=== PATIENT | female | born 1965 | race Two or more races ===

== ENCOUNTER 2017-05-06 08:14 | Inpatient (IN) | payer OTHER ==
[2017-05-06 08:21] VITALS: BMI 30.7
[2017-05-06] MEDS ORDERED: SODIUM CHLORIDE 0.9% 1000 ML INFUS.BAG IV ONE ×2 (09:11→13:28)
[2017-05-06] MEDS ORDERED: PANTOPRAZOLE SODIUM 40 MG in SODIUM CHLORIDE 100 ML IVPB ONE (09:11)
--- NOTE | 2017-05-06 09:35 | PDOC ---
History of Present Illness - General History Source: Patient Exam Limitations: No Limitations - History of Present Illness Initial Comments: 05/06/17 09:35 The patient is a 51 year old female, with a significant past medical history of hypertension, hyperlipidemia, diabetes, HIV(on antiretrovirals), asthma, anemia , and fibromyalgia, who presents to the emergency department complaining of diffuse abdominal pain for approximately 4 days. The patient reports associated episodes of diarrhea, with possible dark blood in her stool. Patient reports her diarrheal episodes occur approximately every 15 minutes. Patient admits taking Pepto Bismol for abdominal pain and diarrhea, but her bloody stool episodes began before then. Patient states she does not know of the blood in the stool is from the red jello she ate on Thursday. Patient reports associated back pain, subjective fever, and chills, but denies any headache, lightheadedness, or dizziness. She reports nausea, but denies vomiting or constipation. Patient denies any dysuria, hematuria, frequency, or urgency. She denies any recent travel or sick contacts Allergies: None reported Past Surgical History: None reported Social History: Non smoker. No ETOH or recreational drug use. PCP: Jo Jordan <Rosalio Smith - Last Filed: 05/06/17 16:46> - General History Source: Patient Exam Limitations: No Limitations <Cynthia Wilson - Last Filed: 05/06/17 17:53> - General Chief Complaint: Pain Stated Complaint: Diarrhea/ABD PAIN Past History <Rosalio Smith - Last Filed: 05/06/17 16:46> - Past Medical History Anemia: Yes Asthma: Yes Cancer: No Cardiac Disorders: No CVA: No COPD: No CHF: No Dementia: No Diabetes: Yes GI Disorders: No Disorders: No HTN: Yes Hypercholesterolemia: Yes HIV: Yes Liver Disease: No Psychiatric Problems: Yes Seizures: No Thyroid Disease: No - Psycho/Social/Smoking Cessation Hx Anxiety: No Suicidal Ideation: No Smoking History: Never smoked Have you smoked in the past 12 months: No Number of Cigarettes Smoked Daily: 40 If you are a former smoker, when did you quit?: 10 YEARS AGO Cigars Per Day: 0 Hx Alcohol Use: No Drug/Substance Use Hx: No Substance Use Type: None Hx Substance Use Treatment: No <Cynthia Wilson - Last Filed: 05/06/17 17:53> - Past Medical History Allergies/Adverse Reactions: Allergies Allergy/AdvReac Type Severity Reaction Status Date / Time No Known Allergies Allergy Verified 05/06/17 08:20 Home Medications: Ambulatory Orders Fluticasone Prop 0.05% Nasal [Flonase -] 2 spray NS BID 12/08/11 Omeprazole [Prilosec] 20 mg PO DAILY #30 capsule. 07/02/16 Acetaminophen [Tylenol -] 1 - 2 tab PO BID PRN #30 tablet MDD 4 09/03/16 Acyclovir 5% Ointment [Zovirax 5% Ointment -] 1 applic TP 5XD #1 tube 12/04/16 Sertraline HCl [Zoloft] 25 mg PO AM #30 tablet 12/04/16 Temazepam [Restoril] 7.5 mg PO HS #30 capsule MDD 1 12/04/16 Zolpidem Tartrate [Ambien] 5 mg PO HS #15 tablet MDD 1 12/04/16 Gabapentin [Neurontin -] 300 tab PO TID #90 capsule 01/13/17 Loratadine [Claritin -] 10 mg PO DAILY #30 tablet 01/13/17 Abacavir Sulfate/Lamivudine [Epzicom -] 1 tab PO DAILY #30 tablet 02/10/17 Albuterol 0.083% Nebulizer Radha [Ventolin 0.083% Nebulizer Soln -] 1 neb NEB Q6H #1 box 02/10/17 Albuterol Sulfate Inhaler - [Ventolin HFA Inhaler -] 1 - 2 inh PO Q4H #1 inhaler 02/10/17 Amlodipine Besylate [Norvasc -] 5 mg PO DAILY #30 tablet 02/10/17 Aspirin [Aspirin EC] 81 mg PO DAILY #30 tablet. 02/10/17 Atorvastatin Ca [Lipitor] 10 mg PO HS #30 tablet 02/10/17 Metformin HCl 500 mg PO BIDAC #60 tablet 02/10/17 Ropinirole HCl [Requip -] 0.25 mg PO HS #30 tablet 03/20/17 Ropinirole HCl [Requip -] 0.5 mg PO HS #30 tablet 03/20/17 Sitagliptin Phosphate [Januvia -] 100 mg PO ONCE #30 tab 03/20/17 Dolutegravir Sodium [Tivicay] 50 mg PO DAILY #30 tablet 04/28/17 Review of Systems - Review of Systems Able to Perform ROS?: Yes Comments:: 05/06/17 09:36 GENERAL/CONSTITUTIONAL: Yes: +fever, +chills. No weakness. HEAD, EYES, EARS, NOSE AND THROAT: No change in vision. No ear pain or discharge. No sore throat. CARDIOVASCULAR: No chest pain or shortness of breath. RESPIRATORY: No cough, wheezing, or hemoptysis. GASTROINTESTINAL: Yes: +Abdominal pain, nausea, +diarrhea, +melena. No vomiting or constipation. GENITOURINARY: No dysuria, frequency, or change in urination. MUSCULOSKELETAL: Yes: +back pain. No joint or muscle swelling or pain. No neck pain. SKIN: No rash NEUROLOGIC: No headache, vertigo, loss of consciousness, or change in strength/ sensation. ENDOCRINE: No increased thirst. No abnormal weight change. HEMATOLOGIC/LYMPHATIC: No anemia, easy bleeding, or history of blood clots. ALLERGIC/IMMUNOLOGIC: No hives or skin allergy. <Rosalio Smith - Last Filed: 05/06/17 16:46> *Physical Exam - Vital Signs Last Vital Signs Temp Pulse Resp BP Pulse Ox 99.0 F 117 H 20 145/94 98 05/06/17 08:18 05/06/17 08:18 05/06/17 08:18 05/06/17 08:18 05/06/17 08:18 - Physical Exam Comments: 05/06/17 09:36 GENERAL: Awake, alert, and fully oriented, in no acute distress HEAD: No signs of trauma EYES: PERRLA, EOMI, sclera anicteric, conjunctiva clear ENT: Auricles normal inspection, hearing grossly normal, nares patent. Moist mucosa NECK: Normal ROM, supple, no lymphadenopathy, JVD, or masses LUNGS: Breath sounds equal, clear to auscultation bilaterally. No wheezes, and no crackles HEART: Regular rate and rhythm, normal S1 and S2, no murmurs, rubs or gallops ABDOMEN: Bilateral lower quadrant tenderness. Soft, normoactive bowel sounds. No guarding, no rebound. No masses MUSCULOSKELETAL: Mild CVA tenderness EXTREMITIES: Normal range of motion, no edema. No clubbing or cyanosis. No cords, erythema, or tenderness. DP/PT pulses 2+ and symmetric. NEUROLOGICAL: Moves all extremities. Normal speech, normal gait SKIN: Warm, Dry, normal turgor, no rashes or lesions noted. <Rosalio Smith - Last Filed: 05/06/17 16:46> - Vital Signs Last Vital Signs Temp Pulse Resp BP Pulse Ox 99.0 F 117 H 20 145/94 98 05/06/17 08:18 05/06/17 08:18 05/06/17 08:18 05/06/17 08:18 05/06/17 08:18 <Cynthia Wilson - Last Filed: 05/06/17 17:53> Heart Score/ECG Review #1 General ECG Interpretation: Sinus Rhythm, Normal Rate (100 sinus tach), Normal Intervals, No acute ischemic changes - ECG Intrepretation Rhythm: Regular Rhythm - [place]: Left [place] Deviation <Cynthia Wilson - Last Filed: 05/06/17 17:53> ED Treatment Course - LABORATORY CBC & Chemistry Diagram: 05/06/17 09:50 05/06/17 11:40 - RADIOLOGY Radiograph Interpretation: 05/06/17 14:49 EXAM: CXR INTERPRETED BY: Dr. Owens REVIEWED BY: Dr. Wilson IMPRESSION: Bibasilar atelectasis <Rosalio Smith - Last Filed: 05/06/17 16:46> - LABORATORY CBC & Chemistry Diagram: 05/06/17 09:50 05/06/17 11:40 - RADIOLOGY Radiology Studies Ordered: Category Date Time Status ABDOMEN & PELVIS CT WITH CONTR [CT] Stat CT Scan 05/06/17 09:16 Ordered <Cynthia Wilson - Last Filed: 05/06/17 17:53> Medical Decision Making - Medical Decision Making 05/06/17 09:30 51 yo f with h/o HIV HTN DM here wtih c/o diarrhea and abd pain. started 4 days ago, crampy in nature. notes loose black stool. did take kayopectate but believes stool was black before that . no mod factors. no fever, but feels chills. no recent travel. no urinary complaints. no cp does have nausea, no vomiting. only prior abd surgery is c section. on exam awake alert lungs clear heart RRR no mr/g. abd soft bilat lower quad ttp. no rebound no guard. bilat CVA tenderness. abd obese. ext wwp no edema nuero alert oriented moves all ext. differential dgx : colitis, appendicits, gi bleed, pud, pyelo uti, plan cbc lytes lipase ua ct a/p protonix, zofran ivf. reassess. 05/06/17 11:34 pt with chest pain, after drinking contrast. repeat ekg unremarkable. cxr performed and reveiwed no asa given due to concerns for gi bleed with black stool guiac pending. ct pending. given iv morphine for pain. 05/06/17 13:01 pt cp resolved with maalox. ct changed to CTA with lactate 3.1 r/o ischemia. additonal ivf bolus <Cynthia Wilson - Last Filed: 05/06/17 17:53> *DC/Admit/Observation/Transfer - Attestations Scribe Attestion: 05/06/17 09:36 Documentation prepared by Rosalio Smith, acting as medical records administrator for Cynthia Wilson MD. <Rosalio Smith - Last Filed: 05/06/17 16:46> - Discharge Dispostion Admit: Yes <Cynthia Wilson - Last Filed: 05/06/17 17:53> Diagnosis at time of Disposition: Colitis - Referrals Referrals: STAFF,NOT ON [Primary Care Provider] -
[2017-05-06] MEDS ORDERED: morphine CARPU-JECT 4 MG/1 ML DISP.SYRIN ONE (09:58)
[2017-05-06] MEDS ORDERED: PANTOPRAZOLE SODIUM 100 ML IVPB ONE (09:58)
[2017-05-06] MEDS ORDERED: morphine CARPU-JECT 4 MG/1 ML DISP.SYRIN IVPUSH ONE (10:03)
[2017-05-06 10:23] LABS: BASOPHIL 0.4 % (0-2.0); MCHC 32.9 g/dl (32.0-36.0); MEAN CELL VOLUME 87.9 fl (80-96); MEAN PLT VOLUME 8.8 fl (7.5-11.1); NEUTROPHILS 72.9 % (42.8-82.8); PLATELET COUNT 255 K/MM3 (134-434); RDW 15.1 % (11.6-15.6); WHITE BLOOD COUNT 14.8 K/mm3 (4.0-10.0)
[2017-05-06 10:29] LABS: URINE APPEARANCE CLOUDY; URINE BILIRUBIN NEGATIVE (NEGATIVE); URINE BLOOD NEGATIVE (NEGATIVE); URINE COLOR DKYELLOW; URINE GLUCOSE (UA) 2+ (NEGATIVE); URINE KETONE 1+ (NEGATIVE); URINE NITRITE NEGATIVE (NEGATIVE); URINE UROBILINOGEN NEGATIVE E.U./dl (0.2-1.0)
[2017-05-06 10:39] LABS: URINE LEUK ESTERASE 3+ (NEGATIVE); URINE PROTEIN 1+ (NEGATIVE)
[2017-05-06 10:47] LABS: URINE BACTERIA RARE /hpf (NONE SEEN); URINE MUCUS FEW; URINE RBC 3 /hpf (0-3); URINE WBC 117 /hpf (3-5)
[2017-05-06] MEDS ORDERED: MAG HYDROX/AL HYDROX/SIMETH 30 ML UNIT-DOSE CUP PO ONE (11:16)
[2017-05-06] MEDS ORDERED: FAMOTIDINE 20 MG/50 ML IVPB 50 ML IVPB ONE ×2 (11:22→11:23)
[2017-05-06] MEDS ORDERED: MAG HYDROX/AL HYDROX/SIMETH 30 ML UNIT-DOSE CUP ONE (11:23)
[2017-05-06 12:21] LABS: ALBUMIN 3.1 g/dl (3.4-5.0); ALK PHOS 159 U/L (45-117); ANION GAP 7 (8-16); BILIRUBIN,TOTAL 0.8 mg/dL (0.2-1.0); CO2 31 mmol/L (21-32); CREATININE 0.6 mg/dL (0.55-1.02); GLUCOSE,RANDOM 255 mg/dL (74-106); SGOT/AST 76 U/L (15-37); SGPT/ALT 38 U/L (12-78); TOT PROT 6.4 g/dl (6.4-8.2)
[2017-05-06 12:23] LABS: TROPONIN I < 0.02 ng/ml (0.00-0.05)
--- NOTE | 2017-05-06 13:34 | EKG ---
Test Reason : Blood Pressure : / mmHG Vent. Rate : 095 BPM Atrial Rate : 095 BPM P-R Int : 136 ms QRS Dur : 084 ms QT Int : 348 ms P-R-T Axes : 058 018 062 degrees QTc Int : 437 ms NORMAL SINUS RHYTHM NORMAL ECG WHEN COMPARED WITH ECG OF 06-MAY-2017 10:05, NO SIGNIFICANT CHANGE WAS FOUND Confirmed by SHELBY MEJIA MD ([id number]) on 05/06/2017 1:34:39 PM Referred By: Confirmed By:SHELBY MEJIA MD
--- NOTE | 2017-05-06 13:40 | EKG ---
Test Reason : Blood Pressure : / mmHG Vent. Rate : 100 BPM Atrial Rate : 100 BPM P-R Int : 134 ms QRS Dur : 082 ms QT Int : 344 ms P-R-T Axes : 055 -09 065 degrees QTc Int : 443 ms NORMAL SINUS RHYTHM NORMAL ECG WHEN COMPARED WITH ECG OF 07-MAY-2016 10:07, NO SIGNIFICANT CHANGE WAS FOUND Confirmed by SHELBY MEJIA MD ([id number]) on 05/06/2017 1:39:44 PM Referred By: Confirmed By:SHELBY MEJIA MD
[2017-05-06 13:47] LABS: URINE APPEARANCE SLCLOUDY; URINE BILIRUBIN NEGATIVE (NEGATIVE); URINE COLOR STRAW; URINE GLUCOSE (UA) 2+ (NEGATIVE); URINE KETONE NEGATIVE (NEGATIVE); URINE NITRITE NEGATIVE (NEGATIVE); URINE PROTEIN NEGATIVE (NEGATIVE); URINE UROBILINOGEN NEGATIVE E.U./dl (0.2-1.0)
[2017-05-06 13:54] LABS: URINE BLOOD 1+ (NEGATIVE); URINE LEUK ESTERASE 2+ (NEGATIVE)
[2017-05-06 14:27] LABS: URINE BACTERIA FEW /hpf (NONE SEEN); URINE RBC 4 /hpf (0-3); URINE WBC 8 /hpf (3-5)
[2017-05-06] MEDS ORDERED: CIPROFLOXACIN 400 MG/D5W 200 ML IVPB ONE (16:45)
[2017-05-06] MEDS ORDERED: METRONIDAZOLE 500 MG PREMIXED 100 ML IVPB ONE ×2 (16:45→17:44)
[2017-05-06] MEDS ORDERED: ACETAMINOPHEN 325 MG TABLET (FP) PO PRN (19:49)
[2017-05-06] MEDS ORDERED: ALBUTEROL SO4 6.7 GM HFA INHALER IH PRN (20:24)
--- NOTE | 2017-05-06 21:01 | HP ---
CHIEF COMPLAINT:abdominal pain/diarrhea PCP: Jo Jordan NP HISTORY OF PRESENT ILLNESS: This is a 51 year old female with with HIV on retrovirals, presents to ER with complaints of abdominal pain and diarrhea x 4 days. Patient states that she ate a gyro on Thursday, and later that night she became sweaty and starting having mid epigastric pain that radiated to the back and bilateral lower abdominal quadrants. She took pepto bismol to alleviate symptoms. After taking medication , she admits to black diarrhea (countless amounts), with some blood, "which looked like period blood." She does not know if this is true blood or jello she ate days before. The black stool now turned to yellow. She states that when she tries to have a sip of water she starts having cramps and diarrhea. Patient denies nausea, vomiting, chills. No sick contacts. She does follow regular to her clinic and takes HIV medications regularly. She states he last CD4 count is in 684s and viral load was undetectable. ER course was notable for: (1)low grade temp; tachycardic, leuckocytosis, elevated lactic acid. (2)patient given 2 L IVF; one time metronidazole and ciprofloxacin. (3)CT abdomen revealed colitis. Recent Travel: no PAST MEDICAL HISTORY: HTN, DM , asthma, anemia, fibromyalgia PAST SURGICAL HISTORY: c section; neck biopsy ti r/o TB in past (negative) Social History: Smoking:quit 10 years ago Alcohol:no Drugs: no Family History: Allergies No Known Allergies Allergy (Verified 05/06/17 08:20) HOME MEDICATIONS: Home Medications Medication Instructions Recorded Fluticasone Prop 0.05% Nasal 2 spray NS BID 12/08/11 [Flonase -] Omeprazole [Prilosec] 20 mg PO DAILY #30 capsule. 07/02/16 Acetaminophen [Tylenol -] 1 - 2 tab PO BID PRN #30 tablet 09/03/16 MDD 4 Acyclovir 5% Ointment [Zovirax 5% 1 applic TP 5XD #1 tube 12/04/16 Ointment -] Sertraline HCl [Zoloft] 25 mg PO AM #30 tablet 12/04/16 Temazepam [Restoril] 7.5 mg PO HS #30 capsule MDD 1 12/04/16 Zolpidem Tartrate [Ambien] 5 mg PO HS #15 tablet MDD 1 12/04/16 Gabapentin [Neurontin -] 300 tab PO TID #90 capsule 01/13/17 Loratadine [Claritin -] 10 mg PO DAILY #30 tablet 01/13/17 Abacavir Sulfate/Lamivudine 1 tab PO DAILY #30 tablet 02/10/17 [Epzicom -] Albuterol 0.083% Nebulizer Radha 1 neb NEB Q6H #1 box 02/10/17 [Ventolin 0.083% Nebulizer Soln -] Albuterol Sulfate Inhaler - 1 - 2 inh PO Q4H #1 inhaler 02/10/17 [Ventolin HFA Inhaler -] Amlodipine Besylate [Norvasc -] 5 mg PO DAILY #30 tablet 02/10/17 Aspirin [Aspirin EC] 81 mg PO DAILY #30 tablet.dr 02/10/17 Atorvastatin Ca [Lipitor] 10 mg PO HS #30 tablet 02/10/17 Metformin HCl 500 mg PO BIDAC #60 tablet 02/10/17 Ropinirole HCl [Requip -] 0.25 mg PO HS #30 tablet 03/20/17 Ropinirole HCl [Requip -] 0.5 mg PO HS #30 tablet 03/20/17 Sitagliptin Phosphate [Januvia -] 100 mg PO ONCE #30 tab 03/20/17 Dolutegravir Sodium [Tivicay] 50 mg PO DAILY #30 tablet 04/28/17 REVIEW OF SYSTEMS CONSTITUTIONAL: Positive:fever, diaphoresis, Absent:chills, generalized weakness, malaise, loss of appetite, weight change HEENT: Absent: rhinorrhea, nasal congestion, throat pain, throat swelling, difficulty swallowing, mouth swelling, ear pain, eye pain, visual changes CARDIOVASCULAR: Absent: chest pain, syncope, palpitations, irregular heart rate, lightheadedness , peripheral edema RESPIRATORY: Absent: cough, shortness of breath, dyspnea with exertion, orthopnea, wheezing, stridor, hemoptysis GASTROINTESTINAL: Positive:abdominal pain, abdominal distension, diarrhea, melena, Absent: nausea, vomiting,, constipation, hematochezia GENITOURINARY: Positive: vaginal itching Absent: dysuria, frequency, urgency, hesitancy, hematuria, flank pain, genital pain MUSCULOSKELETAL: Absent: myalgia, arthralgia, joint swelling, back pain, neck pain SKIN: Absent: rash, itching, pallor HEMATOLOGIC/IMMUNOLOGIC: Absent: easy bleeding, easy bruising, lymphadenopathy, frequent infections ENDOCRINE: Absent: unexplained weight gain, unexplained weight loss, heat intolerance, cold intolerance NEUROLOGIC: Absent: headache, focal weakness or paresthesias, dizziness, unsteady gait, seizure, mental status changes, bladder or bowel incontinence PSYCHIATRIC: Absent: anxiety, depression, suicidal or homicidal ideation, hallucinations. PHYSICAL EXAMINATION GENERAL: Awake, alert, and fully oriented, in no acute distress. HEAD: Normal with no signs of trauma. NECK: Normal range of motion, supple without lymphadenopathy, JVD, or masses. LUNGS: decreased breath sounds at lung bases clear to auscultation bilaterally. No wheezes, and no crackles. No accessory muscle use. HEART: Regular rate and rhythm, normal S1 and S2 without murmur, rub or gallop. ABDOMEN: very tender bilateral lower quadrants, Soft, distended, hyperactive bowel sounds, no guarding, no rebound, no masses. MUSCULOSKELETAL: Normal range of motion at all joints. No bony deformities or tenderness. No CVA tenderness. UPPER EXTREMITIES: 2+ pulses, warm, well-perfused. No cyanosis. No clubbing. No peripheral edema. LOWER EXTREMITIES: 2+ pulses, warm, well-perfused. No calf tenderness. No peripheral edema. NEUROLOGICAL: Cranial nerves II-XII intact. Normal speech. PSYCHIATRIC: Cooperative. Good eye contact. Appropriate mood and affect. SKIN: Warm, dry, normal turgor, no rashes or lesions noted, normal capillary refill. IMAGING: Abdominal CTA IMPRESSION: Severe cecal, ascending colon and proximal transverse colitis with extensive surrounding edema and lymphadenopathy along the SMA chain. The differential diagnoses include infectious, inflammatory and neoplastic processes. Widely patent primary and secondary branches of the SMA, including cecal and right colic artery branches. Evaluation of the distal tertiary branches and penetrating branches is not feasible on this exam. Fatty infiltration of the liver. Status post cholecystectomy. Significant bilateral lower lobe discoid atelectatic changes. ASSESSMENT/PLAN: This is a 51 year old female with a past medical history of HIV, HTN, DM, asthma , presents to the emergency room with abdominal pain and diarrhea. She has been admitted for sepsis secondary to colitis. #sepsis secondary to infectious colitis -IVF, trend lactic acid, wbc count, vitals -IV antibiotics Levaquin 500mg IVPB daily and flagyl 500mg q6h IVPB -blood culture -stool cultures -stool ova and parasites -stool for cryptosporidium -heme occult blood -clear liquid diet, advance as tolerated #HIV: -cont home meds -check CD4 count #elevated liver enzymes possible secondary to sepsis: -fatty liver on CT -repeat/trend -consider hep panel #Hypertension -norvasc 5mg po daily #diabetes mellitus type II -insulin SS -BGM achs -hold home med januvia and metformin #vaginal itching -nystatin cream #fibromyalgia: -gabapentin 300mg po tid #asthma: -albuterol inhaler q4h prn #UA positive for LE/wbc: -non symptomatic FEN: Fluids: 125mls/hr NS Electrolytes: wnl Diet: clear diabetic liquids VTE : scds Disposition: cont current management; trend wbc, lactic acid Problem List - Problem (1) Colitis Code(s): K52.9 - NONINFECTIVE GASTROENTERITIS AND COLITIS, UNSPECIFIED (2) Elevated liver enzymes Code(s): R74.8 - ABNORMAL LEVELS OF OTHER SERUM ENZYMES (3) Diabetes mellitus Code(s): E11.9 - TYPE 2 DIABETES MELLITUS WITHOUT COMPLICATIONS (4) HIV (human immunodeficiency virus infection) Code(s): Z21 - ASYMPTOMATIC HUMAN IMMUNODEFICIENCY VIRUS INFECTION STATUS (5) Hypertension Code(s): I10 - ESSENTIAL (PRIMARY) HYPERTENSION Visit type - Emergency Visit Emergency Visit: Yes ED Registration Date: 05/06/17 Care time: The patient presented to the Emergency Department on the above date and was hospitalized for further evaluation of their emergent condition. - New Patient This patient is new to me today: Yes Date on this admission: 05/06/17 - Critical Care Critical Care patient: No
[2017-05-06] MEDS ORDERED: rOPINIRole HCL 0.5 MG TABLET PO SCH (22:00)
[2017-05-06] MEDS ORDERED: rOPINIRole HCL 0.25 MG TABLET PO SCH (22:00)
[2017-05-06] MEDS ORDERED: PRAMIPEXOLE DIHYDROCHLORIDE 0.5 MG, PRAMIPEXOLE DIHYDROCHLORIDE 0.25 MG PO SCH (22:00)
[2017-05-06] MEDS ORDERED: TEMAZEPAM 7.5 MG PO SCH (22:00)
--- NOTE | 2017-05-06 22:32 | PN ---
<Radha Caban - Last Filed: 05/06/17 22:33> Teaching Attending Note ATTENDING PHYSICIAN STATEMENT I saw and evaluated the patient. I reviewed the resident's note and discussed the case with the resident. I agree with the resident's findings and plan as documented. SUBJECTIVE: 51 yo F that presents to the ED complaining of 1 week hx of generalized cramping abdominal pain. 8/10 in intensity associated with multiple episodes of diarrhea. She denies vomiting. Denies fevers or chills. She took pepto bismol to alleviate her symptoms and shortly after noticed dark stool. Dark stools now resolved. She decided to seek medical help due to no improvement in her symptoms and persistent abdominal pain and diarrhea. PMHx: -HTN -HLD -DM -HIV- diagnosed by screening -asthma -anemia -restless leg syndrome -fibromyalgia Surgical Hx: -C section -lymph node biopsy Social Hx: -Hx of smoking quit 10 years ago. -Denies ETOH and drug abuse. Family Hx: -No Hx of premature CAD Allergies: NKDA OBJECTIVE: Last Vital Signs Temp Pulse Resp BP Pulse Ox 99.0 F 100 H 20 128/78 97 05/06/17 08:18 05/06/17 16:18 05/06/17 08:18 05/06/17 16:18 05/06/17 16:18 GENERAL: Awake, alert, and fully oriented, in no acute distress HEENT: Atraumatic. PERRLA, EOMI. Moist mucosa. No JVD LUNGS: No distress, speaks full sentences, clear to auscultation bilaterally HEART: Regular rate and rhythm, normal S1 and S2, no murmurs, rubs or gallops, peripheral pulses normal and equal bilaterally. ABDOMEN: Generalized abdominal tenderness, hyperactive bowel sounds, abdominal distension. No guarding, no rebound. No masses EXTREMITIES: Normal inspection, Normal range of motion, no edema. No clubbing or Cyanosis. NEUROLOGICAL: Cranial nerves II through XII grossly intact. Normal speech, gait not assessed, no focal sensorimotor deficits SKIN: Warm, Dry, normal turgor, no rashes or lesions noted. CBCD WBC 14.8 K/mm3 (4.0-10.0) H D 05/06/17 09:50 RBC 4.82 M/mm3 (3.60-5.2) 05/06/17 09:50 Hgb 14.0 GM/dL (10.7-15.3) D 05/06/17 09:50 Hct 42.4 % (32.4-45.2) 05/06/17 09:50 MCV 87.9 fl (80-96) 05/06/17 09:50 MCHC 32.9 g/dl (32.0-36.0) 05/06/17 09:50 RDW 15.1 % (11.6-15.6) D 05/06/17 09:50 Plt Count 255 K/MM3 (134-434) D 05/06/17 09:50 MPV 8.8 fl (7.5-11.1) 05/06/17 09:50 CMP Sodium 140 mmol/L (136-145) 05/06/17 11:40 Potassium 4.3 mmol/L (3.5-5.1) 05/06/17 11:40 Chloride 102 mmol/L (98-107) 05/06/17 11:40 Carbon Dioxide 31 mmol/L (21-32) 05/06/17 11:40 Anion Gap 7 (8-16) L 05/06/17 11:40 BUN 8 mg/dL (7-18) D 05/06/17 11:40 Creatinine 0.6 mg/dL (0.55-1.02) 05/06/17 11:40 Creat Clearance w eGFR > 60 (>60) 05/06/17 11:40 Calcium 9.0 mg/dL (8.5-10.1) 05/06/17 11:40 Total Bilirubin 0.8 mg/dL (0.2-1.0) D 05/06/17 11:40 AST 76 U/L (15-37) H D 05/06/17 11:40 ALT 38 U/L (12-78) D 05/06/17 11:40 Alkaline Phosphatase 159 U/L (45-117) H 05/06/17 11:40 Total Protein 6.4 g/dl (6.4-8.2) 05/06/17 11:40 Albumin 3.1 g/dl (3.4-5.0) L D 05/06/17 11:40 Abdominal CTA IMPRESSION: Severe cecal, ascending colon and proximal transverse colitis with extensive surrounding edema and lymphadenopathy along the SMA chain. The differential diagnoses include infectious, inflammatory and neoplastic processes. Widely patent primary and secondary branches of the SMA, including cecal and right colic artery branches. Evaluation of the distal tertiary branches and penetrating branches is not feasible on this exam. Fatty infiltration of the liver. Status post cholecystectomy. Significant bilateral lower lobe discoid atelectatic changes. ASSESSMENT AND PLAN: 1.) Sepsis secondary to infectious colitis. Patient has tachycardia, borderline hypotension, leukocytosis, and elevated lactic acid. - IVF - IV antibiotics levaquin and flagyl - blood cultures - stool cultures, ova and parasites - stool for cryptosporidium antigen considering Hx of HIV - will start on clear liquid diet and advance as tolerated 2.) HIV no history of immunodeficiency as per patient. Most recent viral load tested 03/20/2017 with last CD4 count 684 and undetectable viral load. - check CD4 count - continue antiretroviral regimen 3.) Uncontrolled DM - obtain HGB A1C - will cover with insulin sliding scale - hold metformin and januvia 4.) Asthma is stable. - continue nebulizers as needed 5.) DVT ppx - bilateral SCDs This is a 51 yo F with multiple comorbidities and possibly immunocompromised that presents with severe sepsis. Based on severity of her symptoms and plan of care that consists of IVF resuscitation, management with IV antibiotics, she meets medical necessity for an inpatient hospitalization with anticipated length of stay greater than 2 midnights. Documentation is prepared by Radha Caban acting as medical device assembler for Jorden Baptiste M.D. <Jorden Baptiste - Last Filed: 05/06/17 22:57> Teaching Attending Note Name of Resident: Raisa Ibrahim :
[2017-05-06] MEDS: METRONIDAZOLE PREMIXED IVPB 50 ML IVPB SCH (22:33)
[2017-05-06] MEDS: FLUTICASONE PROP 0.05% 16 GM NASAL SPRAY NS SCH (22:34)
[2017-05-06] MEDS: GABAPENTIN 300 MG CAPSULE (FP) PO SCH (22:35)
[2017-05-06] MEDS: ATORVASTATIN CA 10 MG TABLET (FP) PO SCH (22:35)
[2017-05-06] MEDS: ROPINIROLE HCL PO SCH (22:36)
[2017-05-06] MEDS: FAMOTIDINE 20 MG/50 ML IVPB 50 ML IVPB SCH (22:36)
[2017-05-06] MEDS: NYSTATIN 100,000 UNIT/GM TOPICAL CREAM 15 GM TUBE TP SCH (22:41)
[2017-05-07] MEDS: SODIUM CHLORIDE 1,000 ML IV SCH ×2 (00:40→21:00)
[2017-05-07] MEDS: METRONIDAZOLE PREMIXED IVPB 50 ML IVPB SCH ×4 (04:08→21:01)
[2017-05-07] MEDS ORDERED: GABAPENTIN 100 MG CAPSULE (FP) ONE (05:48)
[2017-05-07] MEDS: NYSTATIN 100,000 UNIT/GM TOPICAL CREAM 15 GM TUBE TP SCH ×3 (06:22→17:10)
[2017-05-07] MEDS: INSULIN SLIDING SCALE (NOVOLOG) 1 VIAL SQ SCH ×3 (06:22→16:36)
[2017-05-07] MEDS: GABAPENTIN 300 MG CAPSULE (FP) PO SCH ×3 (06:23→21:01)
[2017-05-07 06:49] LABS: BASOPHIL 0.4 % (0-2.0); EOSINOPHIL 2.1 % (0-4.5); MCH 29.6 pg (25.7-33.7); MEAN CELL VOLUME 87.3 fl (80-96); MEAN PLT VOLUME 8.7 fl (7.5-11.1); NEUTROPHILS 66.9 % (42.8-82.8); PLATELET COUNT 206 K/MM3 (134-434); RDW 15.3 % (11.6-15.6); WHITE BLOOD COUNT 8.2 K/mm3 (4.0-10.0)
[2017-05-07 07:42] LABS: ALBUMIN 2.9 g/dl (3.4-5.0); ANION GAP 8 (8-16); CALCIUM 8.4 mg/dL (8.5-10.1); CO2 30 mmol/L (21-32); GLUCOSE,RANDOM 180 mg/dL (74-106); MAGNESIUM 1.8 mg/dL (1.8-2.4)
[2017-05-07 07:46] LABS: ALK PHOS 395 U/L (45-117); BILIRUBIN,TOTAL 0.8 mg/dL (0.2-1.0); CREATININE 0.6 mg/dL (0.55-1.02); PHOSPHOROUS 3.4 mg/dL (2.5-4.9); SGOT/AST 273 U/L (15-37); SGPT/ALT 397 U/L (12-78)
[2017-05-07] MEDS ORDERED: PATIENT'S OWN MEDICATION (NON-FORMULARY) (Abacavir Sulfate/Lamivudine [Epzicom -] 1 TAB) PO SCH (10:00)
[2017-05-07] MEDS ORDERED: [UNRECOGNIZED DRUG - REMARK] PO SCH (10:00)
[2017-05-07] MEDS: FLUTICASONE PROP 0.05% 16 GM NASAL SPRAY NS SCH ×2 (10:07→22:13)
[2017-05-07] MEDS: amLODIPine BESYLATE 5 MG TABLET (FP) PO SCH (10:07)
[2017-05-07] MEDS: ASPIRIN COATED 81 MG TABLET.EC PO SCH (10:07)
[2017-05-07] MEDS: FAMOTIDINE 20 MG/50 ML IVPB 50 ML IVPB SCH ×2 (10:07→22:01)
[2017-05-07] MEDS: LEVOFLOXACIN 500 MG IVPB 100 ML IVPB SCH (11:42)
--- NOTE | 2017-05-07 15:31 | PN ---
Teaching Attending Note Name of Resident: Marcelino Oropeza ATTENDING PHYSICIAN STATEMENT I saw and evaluated the patient. I reviewed the resident's note and discussed the case with the resident. I agree with the resident's findings and plan as documented. SUBJECTIVE: Patient denies having any fever or chills, c/o having mild abdominal pain and c/ o mild distention OBJECTIVE: Vital Signs Temperature 98.3 F 05/07/17 12:25 Pulse Rate 99 H 05/07/17 12:25 Respiratory Rate 18 05/07/17 12:25 Blood Pressure 142/102 05/07/17 12:25 O2 Sat by Pulse Oximetry (%) 97 05/07/17 09:19 CBCD WBC 8.2 K/mm3 (4.0-10.0) D 05/07/17 06:05 RBC 4.33 M/mm3 (3.60-5.2) 05/07/17 06:05 Hgb 12.8 GM/dL (10.7-15.3) 05/07/17 06:05 Hct 37.8 % (32.4-45.2) 05/07/17 06:05 MCV 87.3 fl (80-96) 05/07/17 06:05 MCHC 34.0 g/dl (32.0-36.0) 05/07/17 06:05 RDW 15.3 % (11.6-15.6) 05/07/17 06:05 Plt Count 206 K/MM3 (134-434) 05/07/17 06:05 MPV 8.7 fl (7.5-11.1) 05/07/17 06:05 CMP Sodium 140 mmol/L (136-145) 05/07/17 06:05 Potassium 3.9 mmol/L (3.5-5.1) 05/07/17 06:05 Chloride 102 mmol/L (98-107) 05/07/17 06:05 Carbon Dioxide 30 mmol/L (21-32) 05/07/17 06:05 Anion Gap 8 (8-16) 05/07/17 06:05 BUN 6 mg/dL (7-18) L D 05/07/17 06:05 Creatinine 0.6 mg/dL (0.55-1.02) 05/07/17 06:05 Creat Clearance w eGFR > 60 (>60) 05/07/17 06:05 Random Glucose 180 mg/dL (74-106) H D 05/07/17 06:05 Calcium 8.4 mg/dL (8.5-10.1) L 05/07/17 06:05 Total Bilirubin 0.8 mg/dL (0.2-1.0) 05/07/17 06:05 AST 273 U/L (15-37) H D 05/07/17 06:05 ALT 397 U/L (12-78) H D 05/07/17 06:05 Alkaline Phosphatase 395 U/L (45-117) H D 05/07/17 06:05 Total Protein 6.0 g/dl (6.4-8.2) L 05/07/17 06:05 Albumin 2.9 g/dl (3.4-5.0) L 05/07/17 06:05 CARDIAC ENZYMES Creatine Kinase 46 IU/L (26-192) 05/06/17 11:40 Troponin I < 0.02 ng/ml (0.00-0.05) 05/06/17 11:40 Current Medications Generic Name Dose Route Start Last Admin Trade Name Freq PRN Reason Stop Dose Admin Acetaminophen 650 mg 05/06/17 19:49 Tylenol - PO Q4H PRN FEVER OR PAIN Albuterol Sulfate 2 puff 05/06/17 20:24 Ventolin Hfa Inhaler - IH Q4H PRN SHORT OF BREATH/WHEEZING Amlodipine Besylate 5 mg 05/07/17 10:00 05/07/17 10:07 Norvasc - PO 5 mg DAILY MALGORZATA Administration Aspirin 81 mg 05/07/17 10:00 05/07/17 10:07 Ecotrin - PO 81 mg DAILY MALGORZATA Administration Atorvastatin Calcium 10 mg 05/06/17 22:00 05/06/17 22:35 Lipitor - PO 10 mg HS MALGORZATA Administration Fluticasone Propionate 2 spray 05/06/17 22:00 05/07/17 10:07 Flonase - NS 2 sprays BID MALGORZATA Administration Gabapentin 300 mg 05/06/17 22:00 05/07/17 13:30 Neurontin - PO 300 mg TID MALGORZATA Administration Sodium Chloride 1,000 mls @ 125 mls/hr 05/06/17 20:00 05/07/17 00:40 Normal Saline - IV 125 mls/hr ASDIR MALGORZATA Administration Metronidazole 50 mls @ 50 mls/hr 05/06/17 22:00 05/07/17 10:07 Flagyl 250mg Premixed Ivpb - IVPB 50 mls/hr Q6H-IV MALGORZATA Administration Levofloxacin 100 mls @ 100 mls/hr 05/07/17 10:00 05/07/17 11:42 Levaquin 500 Mg Premixed Ivpb - IVPB 100 mls/hr DAILY MALGORZATA Administration Famotidine/Sodium Chloride 50 mls @ 100 mls/hr 05/06/17 22:00 05/07/17 10:07 Pepcid 20 Mg Premixed Ivpb - IVPB 100 mls/hr BID MALGORZATA Administration Insulin Aspart 1 vial 05/06/17 22:00 05/07/17 11:33 Novolog Vial Sliding Scale - SQ 6 units ACHS MALGORZATA Administration Protocol Non-Formulary Medication 1 tab 05/07/17 10:00 Abacavir Sulfate/Lamivudine [Epzicom -] PO DAILY MALGORZATA Non-Formulary Medication 1 applic 05/06/17 22:00 Acyclovir 5% Ointment [Zovirax 5% Ointment -] TP 5XD MALGORZATA Non-Formulary Medication 50 mg 05/07/17 10:00 Dolutegravir Sodium PO DAILY MALGORZATA Non-Formulary Medication 7.5 mg 05/06/17 22:00 Temazepam [Restoril] PO HS MALGORZATA Nystatin 1 applic 05/07/17 00:00 05/07/17 12:24 Mycostatin Cream - TP 1 applic Q6H MALGORZATA Administration Ropinirole HCl 0.25 mg/ 0.75 mg 05/06/17 22:00 05/06/17 22:36 Ropinirole HCl 0.5 mg PO 0.75 mg HS MALGORZATA Administration PE: per resident's note ASSESSMENT AND PLAN: Patient is a 51 yo F that presents to the ED complaining of 1 week hx of generalized cramping abdominal pain. # s/p sepsis due to infective Colitis on IV Levaquin and Flagyl . Culture is pending. # Acute Infective Colitis continue IV antibiotic # Elevated liver enzymes will trend # HIV (human immunodeficiency virus infection); CD4 above 500 ;continue home meds. # Asthma Albuterol PRN for wheezing. # Hypertension controlled # DM type 2 (diabetes mellitus, type 2) sliding scale with coverage # Fibromyalgia continue gabapentin. DVT Px: SCds.
--- NOTE | 2017-05-07 16:52 | PN ---
Physical Exam: SUBJECTIVE: Patient seen and examined at bedside. No new complaints. Abd. pain is improved. Diarrhea is minimal. Tolerating advanced diet. Denies CP,BABCOCK, SOB, palpitations, N/V. OBJECTIVE: Vital Signs Period Temp Pulse Resp BP Sys/Harrison Pulse Ox Last 24 Hr 98.1 F-98.9 F 85-99 14-18 134-148/81-102 97-97 GENERAL:AAO x3 HEAD: NC/AT EYES: PERRLA, EOMI, sclera anicteric, conjunctiva clear. No lid lag. EARS, NOSE, THROAT: Ears normal, nares patent, oropharynx clear without exudates. Moist mucous membranes. NECK: normal ROM, supple, no jvd, lad, or masses LUNGS: CTAB, no wheeze/rales or accessory muscle use. HEART: RRR, normal S1 and S2 w/o M/G/R ABDOMEN: Soft, LLQ tenderness,ND, BS(+) no guarding, no rebound, no masses. No hepatomegaly or splenomegaly. MUSCULOSKELETAL: Normal ROM. No bony deformities or tenderness. No CVA tenderness. UPPER EXTREMITIES: 2+ pulses, warm, well-perfused. No cyanosis. No clubbing. No peripheral edema. LOWER EXTREMITIES: 2+ pulses, warm, well-perfused. No calf tenderness. No peripheral edema. Laboratory Results - last 24 hr 05/07/17 05/07/17 05/07/17 06:05 06:05 06:05 WBC 8.2 D RBC 4.33 Hgb 12.8 Hct 37.8 MCV 87.3 MCHC 34.0 RDW 15.3 Plt Count 206 MPV 8.7 Neutrophils % 66.9 Lymphocytes % 21.1 Monocytes % 9.5 Eosinophils % 2.1 D Basophils % 0.4 Sodium 140 Potassium 3.9 Chloride 102 Carbon Dioxide 30 Anion Gap 8 BUN 6 L D Creatinine 0.6 Creat Clearance w eGFR > 60 POC Glucometer Random Glucose 180 H D Hemoglobin A1c % 9.5 H D Calcium 8.4 L Phosphorus 3.4 Magnesium 1.8 Total Bilirubin 0.8 AST 273 H D ALT 397 H D Alkaline Phosphatase 395 H D Total Protein 6.0 L Albumin 2.9 L Stool Occult Blood 05/07/17 05/07/17 05/07/17 06:18 10:10 11:19 WBC RBC Hgb Hct MCV MCHC RDW Plt Count MPV Neutrophils % Lymphocytes % Monocytes % Eosinophils % Basophils % Sodium Potassium Chloride Carbon Dioxide Anion Gap BUN Creatinine Creat Clearance w eGFR POC Glucometer 176 224 Random Glucose Hemoglobin A1c % Calcium Phosphorus Magnesium Total Bilirubin AST ALT Alkaline Phosphatase Total Protein Albumin Stool Occult Blood Positive Active Medications Generic Name Dose Route Start Last Admin Trade Name Freq PRN Reason Stop Dose Admin Acetaminophen 650 mg 05/06/17 19:49 Tylenol - PO Q4H PRN FEVER OR PAIN Albuterol Sulfate 2 puff 05/06/17 20:24 Ventolin Hfa Inhaler - IH Q4H PRN SHORT OF BREATH/WHEEZING Amlodipine Besylate 5 mg 05/07/17 10:00 05/07/17 10:07 Norvasc - PO 5 mg DAILY MALGORZATA Administration Aspirin 81 mg 05/07/17 10:00 05/07/17 10:07 Ecotrin - PO 81 mg DAILY MALGORZATA Administration Atorvastatin Calcium 10 mg 05/06/17 22:00 05/06/17 22:35 Lipitor - PO 10 mg HS MALGORZATA Administration Fluticasone Propionate 2 spray 05/06/17 22:00 05/07/17 10:07 Flonase - NS 2 sprays BID MALGORZATA Administration Gabapentin 300 mg 05/06/17 22:00 05/07/17 13:30 Neurontin - PO 300 mg TID MALGORZATA Administration Sodium Chloride 1,000 mls @ 125 mls/hr 05/06/17 20:00 05/07/17 00:40 Normal Saline - IV 125 mls/hr ASDIR MALGORZATA Administration Metronidazole 50 mls @ 50 mls/hr 05/06/17 22:00 05/07/17 16:33 Flagyl 250mg Premixed Ivpb - IVPB 50 mls/hr Q6H-IV MALGORZATA Administration Levofloxacin 100 mls @ 100 mls/hr 05/07/17 10:00 05/07/17 11:42 Levaquin 500 Mg Premixed Ivpb - IVPB 100 mls/hr DAILY MALGORZATA Administration Famotidine/Sodium Chloride 50 mls @ 100 mls/hr 05/06/17 22:00 05/07/17 10:07 Pepcid 20 Mg Premixed Ivpb - IVPB 100 mls/hr BID MALGORZATA Administration Insulin Aspart 1 vial 05/06/17 22:00 05/07/17 16:36 Novolog Vial Sliding Scale - SQ 2 units ACHS MALGORZATA Administration Protocol Non-Formulary Medication 1 tab 05/07/17 10:00 Abacavir Sulfate/Lamivudine [Epzicom -] PO DAILY MALGORZATA Non-Formulary Medication 1 applic 05/06/17 22:00 Acyclovir 5% Ointment [Zovirax 5% Ointment -] TP 5XD MALGORZATA Non-Formulary Medication 50 mg 05/07/17 10:00 Dolutegravir Sodium PO DAILY MALGORZATA Non-Formulary Medication 7.5 mg 05/06/17 22:00 Temazepam [Restoril] PO HS MALGORZATA Nystatin 1 applic 05/07/17 00:00 05/07/17 12:24 Mycostatin Cream - TP 1 applic Q6H MALGORZATA Administration Ropinirole HCl 0.25 mg/ 0.75 mg 05/06/17 22:00 05/06/17 22:36 Ropinirole HCl 0.5 mg PO 0.75 mg HS MALGORZATA Administration ASSESSMENT/PLAN: Problem List - Problems (1) Sepsis Assessment/Plan: * Secondary to Colitis. * Continue Levaquin and Flagyl . * Blood and stool cultures pending * Stool O&P and cryptosporidium * Continue IVF with NS * trend lactic acid. * advance diet as tolerated (2) Colitis Assessment/Plan: * refer to sepsis A/P (3) Elevated liver enzymes Assessment/Plan: * possible 2/2 sepsis * Hepatitis panel pending. * will trend. (4) HIV (human immunodeficiency virus infection) Assessment/Plan: * CD4 and viral load pending * continue home meds. * Abacavir Sulfate/Lamivudine [Epzicom -]) 1 tab PO DAILY * Zovirax 5% Ointment 1 applic TP 5XD * Dolutegravir Sodium) 50 mg PO DAILY * Temazepam 7.5 mg PO HS MALGORZATA (5) Asthma Assessment/Plan: * Albuterol PRN for wheezing. (6) Hypertension (7) DM type 2 (diabetes mellitus, type 2) Assessment/Plan: * ADA diet * BGM ACHS * ISS ACHS * HbgA1C Qualifiers: Diabetes mellitus complication status: with unspecified complications Diabetes mellitus jail insulin use: without predatory animal exterminator use Qualified Code(s): E11.8 - Type 2 diabetes mellitus with unspecified complications; Z79.4 - exterminator termite (current) use of insulin (8) Fibromyalgia Assessment/Plan: * Continue gabapentin. Code(s): M79.7 - FIBROMYALGIA (9) Vaginal itching Assessment/Plan: * Nystatin cream BID (10) DVT prophylaxis Assessment/Plan: * Bilateral SCD's Code(s): VIH0818 - Visit type - Emergency Visit Emergency Visit: Yes ED Registration Date: 05/06/17 Care time: The patient presented to the Emergency Department on the above date and was hospitalized for further evaluation of their emergent condition. - New Patient This patient is new to me today: No - Critical Care Critical Care patient: No
[2017-05-07] MEDS: ATORVASTATIN CA 10 MG TABLET (FP) PO SCH (21:01)
[2017-05-07] MEDS: ROPINIROLE HCL PO SCH (21:02)
[2017-05-07] MEDS ORDERED: INSULIN (NOVOLOG) ASPART 100 UNITS/ML 10ML VIAL ONE (21:59)
[2017-05-08] MEDS: NYSTATIN 100,000 UNIT/GM TOPICAL CREAM 15 GM TUBE TP SCH ×4 (00:12→18:06)
[2017-05-08] MEDS: METRONIDAZOLE PREMIXED IVPB 50 ML IVPB SCH ×4 (04:29→21:40)
[2017-05-08] MEDS: INSULIN SLIDING SCALE (NOVOLOG) 1 VIAL SQ SCH ×6 (06:13→23:35)
[2017-05-08] MEDS: GABAPENTIN 300 MG CAPSULE (FP) PO SCH ×3 (06:15→21:39)
[2017-05-08 07:59] LABS: ANION GAP 9 (8-16); BILIRUBIN,TOTAL 0.5 mg/dL (0.2-1.0); CALCIUM 8.7 mg/dL (8.5-10.1); CO2 27 mmol/L (21-32); CREATININE 0.6 mg/dL (0.55-1.02); GLUCOSE,RANDOM 212 mg/dL (74-106); SGOT/AST 74 U/L (15-37); SGPT/ALT 230 U/L (12-78); TOT PROT 6.3 g/dl (6.4-8.2)
[2017-05-08 08:00] LABS: ALK PHOS 293 U/L (45-117)
[2017-05-08 08:02] LABS: BASOPHIL 0.7 % (0-2.0); EOSINOPHIL 2.6 % (0-4.5); MCH 29.6 pg (25.7-33.7); MCHC 33.6 g/dl (32.0-36.0); MEAN CELL VOLUME 88.1 fl (80-96); MEAN PLT VOLUME 8.6 fl (7.5-11.1); NEUTROPHILS 67.7 % (42.8-82.8); PLATELET COUNT 216 K/MM3 (134-434); RDW 14.2 % (11.6-15.6); WHITE BLOOD COUNT 6.6 K/mm3 (4.0-10.0)
[2017-05-08] MEDS ORDERED: PT OWN MED DRAWER 7, Y5N ONE ×3 (08:49→21:27)
[2017-05-08] MEDS: FAMOTIDINE 20 MG/50 ML IVPB 50 ML IVPB SCH ×2 (09:58→23:45)
[2017-05-08] MEDS: LEVOFLOXACIN 500 MG IVPB 100 ML IVPB SCH (09:59)
[2017-05-08] MEDS: amLODIPine BESYLATE 5 MG TABLET (FP) PO SCH (09:59)
[2017-05-08] MEDS: ASPIRIN COATED 81 MG TABLET.EC PO SCH (10:00)
[2017-05-08] MEDS: FLUTICASONE PROP 0.05% 16 GM NASAL SPRAY NS SCH ×2 (10:03→21:40)
--- NOTE | 2017-05-08 12:10 | PN ---
Physical Exam: SUBJECTIVE: Patient seen and examined at bedside. No overnight events. No new complaints. Continues to have abdominal pain but improved. Loose BM's dark color. Denies CP,BABCOCK, SOB, palpitations, N/V. OBJECTIVE: Vital Signs Period Temp Pulse Resp BP Sys/Harrison Pulse Ox Last 24 Hr 98.3 F-99.6 F 84-99 16-18 142-156/68-102 99-99 GENERAL:AAO x3 HEAD: NC/AT EYES: PERRLA, EOMI, sclera anicteric, conjunctiva clear. EARS, NOSE, THROAT: Moist mucous membranes. NECK: normal ROM, supple, no jvd, lad, or masses LUNGS: CTAB, no wheeze/rales or accessory muscle use. HEART: RRR, normal S1 and S2 w/o M/G/R ABDOMEN: Soft, RLQ>LLQ tenderness,ND, BS(+) no guarding, no rebound, no masses. No hepatomegaly or splenomegaly. MUSCULOSKELETAL: Normal ROM. No bony deformities or tenderness. No CVA tenderness. EXTREMITIES: 2+ pulses, warm, well-perfused, no edema. NEUROLOGICAL: Cranial nerves II through XII grossly intact. Normal speech, gait not observed. Laboratory Results - last 24 hr 05/07/17 05/07/17 05/08/17 16:36 21:15 05:59 WBC RBC Hgb Hct MCV MCHC RDW Plt Count MPV Neutrophils % Lymphocytes % Monocytes % Eosinophils % Basophils % Sodium Potassium Chloride Carbon Dioxide Anion Gap BUN Creatinine Creat Clearance w eGFR POC Glucometer 199 162 198 Random Glucose Calcium Total Bilirubin AST ALT Alkaline Phosphatase Total Protein Albumin 05/08/17 05/08/17 06:00 06:00 WBC 6.6 RBC 4.27 Hgb 12.6 Hct 37.6 MCV 88.1 MCHC 33.6 RDW 14.2 Plt Count 216 MPV 8.6 Neutrophils % 67.7 Lymphocytes % 19.0 Monocytes % 10.0 Eosinophils % 2.6 Basophils % 0.7 Sodium 141 Potassium 3.6 Chloride 105 Carbon Dioxide 27 Anion Gap 9 BUN 7 Creatinine 0.6 Creat Clearance w eGFR > 60 POC Glucometer Random Glucose 212 H Calcium 8.7 Total Bilirubin 0.5 D AST 74 H D ALT 230 H D Alkaline Phosphatase 293 H D Total Protein 6.3 L Albumin 3.0 L Active Medications Generic Name Dose Route Start Last Admin Trade Name Freq PRN Reason Stop Dose Admin Acetaminophen 650 mg 05/06/17 19:49 05/08/17 10:05 Tylenol - PO 650 mg Q4H PRN Administration FEVER OR PAIN Albuterol Sulfate 2 puff 05/06/17 20:24 05/08/17 10:00 Ventolin Hfa Inhaler - IH 2 puff Q4H PRN Administration SHORT OF BREATH/WHEEZING Amlodipine Besylate 5 mg 05/07/17 10:00 05/08/17 09:59 Norvasc - PO 5 mg DAILY MALGORZATA Administration Aspirin 81 mg 05/07/17 10:00 05/08/17 10:00 Ecotrin - PO 81 mg DAILY MALGORZATA Administration Atorvastatin Calcium 10 mg 05/06/17 22:00 05/07/17 21:01 Lipitor - PO 10 mg HS MALGORZATA Administration Fluticasone Propionate 2 spray 05/06/17 22:00 05/08/17 10:03 Flonase - NS Not Given BID MALGORZATA Gabapentin 300 mg 05/06/17 22:00 05/08/17 06:15 Neurontin - PO 300 mg TID MALGORZATA Administration Sodium Chloride 1,000 mls @ 125 mls/hr 05/06/17 20:00 05/07/17 21:00 Normal Saline - IV 125 mls/hr ASDIR MALGORZATA Administration Metronidazole 50 mls @ 50 mls/hr 05/06/17 22:00 05/08/17 09:58 Flagyl 250mg Premixed Ivpb - IVPB 50 mls/hr Q6H-IV MALGORZATA Administration Levofloxacin 100 mls @ 100 mls/hr 05/07/17 10:00 05/08/17 09:59 Levaquin 500 Mg Premixed Ivpb - IVPB 100 mls/hr DAILY MALGORZATA Administration Famotidine/Sodium Chloride 50 mls @ 100 mls/hr 05/06/17 22:00 05/08/17 09:58 Pepcid 20 Mg Premixed Ivpb - IVPB 100 mls/hr BID MALGORZATA Administration Insulin Aspart 1 vial 05/06/17 22:00 05/08/17 06:15 Novolog Vial Sliding Scale - SQ 2 units ACHS MALGORZATA Administration Protocol Non-Formulary Medication 1 tab 05/07/17 10:00 Abacavir Sulfate/Lamivudine [Epzicom -] PO DAILY MALGORZATA Non-Formulary Medication 1 applic 05/06/17 22:00 Acyclovir 5% Ointment [Zovirax 5% Ointment -] TP 5XD MALGORZATA Non-Formulary Medication 50 mg 05/07/17 10:00 Dolutegravir Sodium PO DAILY MALGORZATA Non-Formulary Medication 7.5 mg 05/06/17 22:00 Temazepam [Restoril] PO HS MALGORZATA Nystatin 1 applic 05/07/17 00:00 05/08/17 06:15 Mycostatin Cream - TP 1 applic Q6H MALGORZATA Administration Ropinirole HCl 0.25 mg/ 0.75 mg 05/06/17 22:00 05/07/17 21:02 Ropinirole HCl 0.5 mg PO 0.75 mg HS MALGORZATA Administration ASSESSMENT/PLAN: This is a 51 year old female with a past medical history of HIV, HTN, DM, asthma , presents to the emergency room with abdominal pain and diarrhea. She has been admitted for sepsis secondary to colitis. Problem List - Problems (1) Sepsis Assessment/Plan: * Secondary to Colitis. * Abdominal pain improved. * WBC has improved and remained afebrile * Continue Levaquin 500mg IV daily and Flagyl 500mg IV Q8H. * Blood and stool cultures pending * Stool O&P and cryptosporidium pending * Continue IVF with NS * trending lactic acid. * advance diet as tolerated (2) Colitis Assessment/Plan: * refer to sepsis A/P (3) Elevated liver enzymes Assessment/Plan: * possible 2/2 sepsis * Hepatitis panel pending. * will trend. (4) HIV (human immunodeficiency virus infection) Assessment/Plan: Laboratory Tests 03/20/17 03/20/17 11:20 11:20 Absolute CD4 [place] 684 HIV-1 RNA (PCR) <20 * CD4 and viral load pending * continue home meds. * Abacavir Sulfate/Lamivudine [Epzicom -]) 1 tab PO DAILY * Dolutegravir Sodium 50 mg PO DAILY * ID consult (5) Asthma Assessment/Plan: * Albuterol PRN for wheezing. * supplemental O2 prn (6) Hypertension (7) DM type 2 (diabetes mellitus, type 2) Assessment/Plan: * ADA diet * BGM ACHS * ISS ACHS * HbgA1C 9.5 (8) Fibromyalgia Assessment/Plan: * Continue gabapentin. (9) Vaginal itching Assessment/Plan: * Nystatin cream BID (10) DVT prophylaxis Assessment/Plan: * Bilateral SCD's Visit type - Emergency Visit Emergency Visit: Yes ED Registration Date: 05/06/17 Care time: The patient presented to the Emergency Department on the above date and was hospitalized for further evaluation of their emergent condition. - New Patient This patient is new to me today: No - Critical Care Critical Care patient: No - Discharge Referral Referred to [facility] Med [facility] No
[2017-05-08] MEDS ORDERED: ALPRAZolam 0.25 MG TABLET PO PRN (13:57)
--- NOTE | 2017-05-08 16:58 | PN ---
Teaching Attending Note Name of Resident: Marcelino Oropeza ATTENDING PHYSICIAN STATEMENT I saw and evaluated the patient. I reviewed the resident's note and discussed the case with the resident. I agree with the resident's findings and plan as documented. SUBJECTIVE: Patient is complaining of lower abdominal pain, still not feeling well. no fever or chills, no shortness of breath. OBJECTIVE: Vital Signs Temperature 98 F 05/08/17 15:38 Pulse Rate 84 05/08/17 15:38 Respiratory Rate 18 05/08/17 15:38 Blood Pressure 131/74 05/08/17 15:38 O2 Sat by Pulse Oximetry (%) 99 05/08/17 07:58 CBCD WBC 6.6 K/mm3 (4.0-10.0) 05/08/17 06:00 RBC 4.27 M/mm3 (3.60-5.2) 05/08/17 06:00 Hgb 12.6 GM/dL (10.7-15.3) 05/08/17 06:00 Hct 37.6 % (32.4-45.2) 05/08/17 06:00 MCV 88.1 fl (80-96) 05/08/17 06:00 MCHC 33.6 g/dl (32.0-36.0) 05/08/17 06:00 RDW 14.2 % (11.6-15.6) 05/08/17 06:00 Plt Count 216 K/MM3 (134-434) 05/08/17 06:00 MPV 8.6 fl (7.5-11.1) 05/08/17 06:00 CMP Sodium 141 mmol/L (136-145) 05/08/17 06:00 Potassium 3.6 mmol/L (3.5-5.1) 05/08/17 06:00 Chloride 105 mmol/L (98-107) 05/08/17 06:00 Carbon Dioxide 27 mmol/L (21-32) 05/08/17 06:00 Anion Gap 9 (8-16) 05/08/17 06:00 BUN 7 mg/dL (7-18) 05/08/17 06:00 Creatinine 0.6 mg/dL (0.55-1.02) 05/08/17 06:00 Creat Clearance w eGFR > 60 (>60) 05/08/17 06:00 Random Glucose 212 mg/dL (74-106) H 05/08/17 06:00 Calcium 8.7 mg/dL (8.5-10.1) 05/08/17 06:00 Total Bilirubin 0.5 mg/dL (0.2-1.0) D 05/08/17 06:00 AST 74 U/L (15-37) H D 05/08/17 06:00 ALT 230 U/L (12-78) H D 05/08/17 06:00 Alkaline Phosphatase 293 U/L (45-117) H D 05/08/17 06:00 Total Protein 6.3 g/dl (6.4-8.2) L 05/08/17 06:00 Albumin 3.0 g/dl (3.4-5.0) L 05/08/17 06:00 CARDIAC ENZYMES Creatine Kinase 46 IU/L (26-192) 05/06/17 11:40 Troponin I < 0.02 ng/ml (0.00-0.05) 05/06/17 11:40 Current Medications Generic Name Dose Route Start Last Admin Trade Name Freq PRN Reason Stop Dose Admin Abacavir Sulfate 600 mg 05/08/17 14:00 Ziagen - PO DAILY MALGORZATA Acetaminophen 650 mg 05/06/17 19:49 05/08/17 10:05 Tylenol - PO 650 mg Q4H PRN Administration FEVER OR PAIN Albuterol Sulfate 2 puff 05/06/17 20:24 05/08/17 10:00 Ventolin Hfa Inhaler - IH 2 puff Q4H PRN Administration SHORT OF BREATH/WHEEZING Alprazolam 0.25 mg 05/08/17 13:57 Xanax - PO Q6H PRN ANXIETY Amlodipine Besylate 5 mg 05/07/17 10:00 05/08/17 09:59 Norvasc - PO 5 mg DAILY MALGORZATA Administration Aspirin 81 mg 05/07/17 10:00 05/08/17 10:00 Ecotrin - PO 81 mg DAILY MALGORZATA Administration Atorvastatin Calcium 10 mg 05/06/17 22:00 05/07/17 21:01 Lipitor - PO 10 mg HS MALGORZATA Administration Fluticasone Propionate 2 spray 05/06/17 22:00 05/08/17 10:03 Flonase - NS Not Given BID MALGORZATA Gabapentin 300 mg 05/06/17 22:00 05/08/17 13:48 Neurontin - PO 300 mg TID MALGORZATA Administration Sodium Chloride 1,000 mls @ 125 mls/hr 05/06/17 20:00 05/07/17 21:00 Normal Saline - IV 125 mls/hr ASDIR MALGORZATA Administration Metronidazole 50 mls @ 50 mls/hr 05/06/17 22:00 05/08/17 14:50 Flagyl 250mg Premixed Ivpb - IVPB 50 mls/hr Q6H-IV MALGORZATA Administration Levofloxacin 100 mls @ 100 mls/hr 05/07/17 10:00 05/08/17 09:59 Levaquin 500 Mg Premixed Ivpb - IVPB 100 mls/hr DAILY MALGORZATA Administration Famotidine/Sodium Chloride 50 mls @ 100 mls/hr 05/06/17 22:00 05/08/17 09:58 Pepcid 20 Mg Premixed Ivpb - IVPB 100 mls/hr BID MALGORZATA Administration Insulin Aspart 1 vial 05/06/17 22:00 05/08/17 12:18 Novolog Vial Sliding Scale - SQ 6 units ACHS MALGORZATA Administration Protocol Lamivudine 300 mg 05/08/17 14:00 Epivir - PO DAILY MALGORZATA Loratadine 10 mg 05/09/17 10:00 Claritin - PO DAILY MALGORZATA Non-Formulary Medication 1 applic 05/06/17 22:00 Acyclovir 5% Ointment [Zovirax 5% Ointment -] TP 5XD MALGORZATA Nystatin 1 applic 05/07/17 00:00 05/08/17 12:18 Mycostatin Cream - TP 1 applic Q6H MALGORZATA Administration Ropinirole HCl 0.25 mg/ 0.75 mg 05/06/17 22:00 05/07/17 21:02 Ropinirole HCl 0.5 mg PO 0.75 mg HS MALGORZATA Administration Sertraline HCl 25 mg 05/09/17 07:00 Zoloft - PO AM [facility] Home Medications Medication Instructions Recorded Fluticasone Prop 0.05% Nasal 2 spray NS BID 12/08/11 [Flonase -] Omeprazole [Prilosec] 20 mg PO DAILY #30 capsule. 07/02/16 Acetaminophen [Tylenol -] 1 - 2 tab PO BID PRN #30 tablet 09/03/16 MDD 4 Acyclovir 5% Ointment [Zovirax 5% 1 applic TP 5XD #1 tube 12/04/16 Ointment -] Sertraline HCl [Zoloft] 25 mg PO AM #30 tablet 12/04/16 Temazepam [Restoril] 7.5 mg PO HS #30 capsule MDD 1 12/04/16 Zolpidem Tartrate [Ambien] 5 mg PO HS #15 tablet MDD 1 12/04/16 Gabapentin [Neurontin -] 300 tab PO TID #90 capsule 01/13/17 Loratadine [Claritin -] 10 mg PO DAILY #30 tablet 01/13/17 Abacavir Sulfate/Lamivudine 1 tab PO DAILY #30 tablet 02/10/17 [Epzicom -] Albuterol 0.083% Nebulizer Radha 1 neb NEB Q6H #1 box 02/10/17 [Ventolin 0.083% Nebulizer Soln -] Albuterol Sulfate Inhaler - 1 - 2 inh PO Q4H #1 inhaler 02/10/17 [Ventolin HFA Inhaler -] Amlodipine Besylate [Norvasc -] 5 mg PO DAILY #30 tablet 02/10/17 Aspirin [Aspirin EC] 81 mg PO DAILY #30 tablet. 02/10/17 Atorvastatin Ca [Lipitor] 10 mg PO HS #30 tablet 02/10/17 Metformin HCl 500 mg PO BIDAC #60 tablet 02/10/17 Ropinirole HCl [Requip -] 0.25 mg PO HS #30 tablet 03/20/17 Ropinirole HCl [Requip -] 0.5 mg PO HS #30 tablet 03/20/17 Sitagliptin Phosphate [Januvia -] 100 mg PO ONCE #30 tab 03/20/17 Dolutegravir Sodium [Tivicay] 50 mg PO DAILY #30 tablet 04/28/17 PE: per resident's note ASSESSMENT AND PLAN: Patient is a 51 yo F that presents to the ED complaining of 1 week hx of generalized cramping abdominal pain. # s/p sepsis due to infective Colitis on IV Levaquin and Flagyl continue, still not feeling well, continues to have lower abdominal pain. Culture is pending. # Acute Infective Colitis continue IV antibiotic # Elevated liver enzymes will monitor # HIV (human immunodeficiency virus infection); CD4 above 500 ;continue home meds. # Asthma Albuterol PRN for wheezing. # Hypertension controlled # DM type 2 (diabetes mellitus, type 2) sliding scale with coverage # Fibromyalgia continue gabapentin. DVT Px: SCds.
[2017-05-08] MEDS: ABACAVIR SULFATE 300 MG TABLET PO SCH (17:06)
[2017-05-08] MEDS: lamiVUDine 150 MG TABLET PO SCH (17:06)
[2017-05-08] MEDS: DOLUTEGRAVIR SODIUM 50 MG TABLET PO SCH (17:07)
[2017-05-08] MEDS: ATORVASTATIN CA 10 MG TABLET (FP) PO SCH (21:39)
[2017-05-08] MEDS: ROPINIROLE HCL PO SCH (21:39)
[2017-05-08] MEDS: SODIUM CHLORIDE 1,000 ML IV SCH (21:39)
[2017-05-09] MEDS ORDERED: PT OWN MED DRAWER 7, Y5N ONE ×4 (02:25→20:59)
[2017-05-09] MEDS: METRONIDAZOLE PREMIXED IVPB 50 ML IVPB SCH ×4 (02:26→21:31)
[2017-05-09] MEDS: SERTRALINE HCL 25 MG TABLET (FP) PO SCH (06:15)
[2017-05-09] MEDS: GABAPENTIN 300 MG CAPSULE (FP) PO SCH ×2 (06:15→17:03)
[2017-05-09] MEDS: NYSTATIN 100,000 UNIT/GM TOPICAL CREAM 15 GM TUBE TP SCH ×4 (06:23→19:00)
[2017-05-09] MEDS: INSULIN SLIDING SCALE (NOVOLOG) 1 VIAL SQ SCH ×4 (06:24→17:02)
[2017-05-09 07:35] LABS: BASOPHIL 0.8 % (0-2.0); EOSINOPHIL 1.4 % (0-4.5); MCH 29.3 pg (25.7-33.7); MCHC 33.4 g/dl (32.0-36.0); MEAN CELL VOLUME 87.8 fl (80-96); MEAN PLT VOLUME 8.5 fl (7.5-11.1); NEUTROPHILS 69.9 % (42.8-82.8); PLATELET COUNT 217 K/MM3 (134-434); RDW 14.6 % (11.6-15.6); WHITE BLOOD COUNT 5.9 K/mm3 (4.0-10.0)
[2017-05-09 08:08] LABS: ALBUMIN 3.2 g/dl (3.4-5.0); ANION GAP 11 (8-16); CALCIUM 8.7 mg/dL (8.5-10.1); CO2 27 mmol/L (21-32); GLUCOSE,RANDOM 164 mg/dL (74-106); SGOT/AST 87 U/L (15-37); SGPT/ALT 185 U/L (12-78)
[2017-05-09 08:09] LABS: ALK PHOS 257 U/L (45-117); BILIRUBIN,TOTAL 0.4 mg/dL (0.2-1.0); CREATININE 0.6 mg/dL (0.55-1.02); TOT PROT 6.4 g/dl (6.4-8.2)
[2017-05-09] MEDS: FAMOTIDINE 20 MG/50 ML IVPB 50 ML IVPB SCH ×2 (09:40→21:31)
[2017-05-09] MEDS: LEVOFLOXACIN 500 MG IVPB 100 ML IVPB SCH (09:40)
[2017-05-09] MEDS: ABACAVIR SULFATE 300 MG TABLET PO SCH (09:41)
[2017-05-09] MEDS: lamiVUDine 150 MG TABLET PO SCH (09:41)
[2017-05-09] MEDS: ASPIRIN COATED 81 MG TABLET.EC PO SCH (09:42)
[2017-05-09] MEDS: amLODIPine BESYLATE 5 MG TABLET (FP) PO SCH (09:42)
[2017-05-09] MEDS: FLUTICASONE PROP 0.05% 16 GM NASAL SPRAY NS SCH ×2 (09:50→21:34)
[2017-05-09] MEDS ORDERED: LORATADINE 10 MG TABLET PO SCH (10:00)
[2017-05-09] MEDS: DOLUTEGRAVIR SODIUM 50 MG TABLET PO SCH (10:55)
--- NOTE | 2017-05-09 10:58 | PN ---
Progress Note (short form) - Note Progress Note: ID consult dictated 51 year old female with well controlled HIV (cd4 684, viral load suppressed) admitted with abdominal pain and diarrhea she had cta of abd that showed severe cecal, ascending colon and transverse colon colitis she had an elevated lactic acid on admission she was treated with IVF and iv levaquin and flagyl stool studies are pending still with abdominal discomfort and diarrhea - but some slowing down she had transient elevation of her lfts that is also trending down no travel, no sick contacts gastroenteritis/colitis- suspect infectious, no prior history abnl lfts resolving stable HIV continue art as ordered f/u stool studies continue levaquin/flagyl Problem List - Problems (1) Colitis Code(s): K52.9 - NONINFECTIVE GASTROENTERITIS AND COLITIS, UNSPECIFIED (2) Elevated liver enzymes Code(s): R74.8 - ABNORMAL LEVELS OF OTHER SERUM ENZYMES (3) HIV (human immunodeficiency virus infection) Code(s): Z21 - ASYMPTOMATIC HUMAN IMMUNODEFICIENCY VIRUS INFECTION STATUS
--- NOTE | 2017-05-09 12:08 | CONS ---
DATE OF CONSULTATION: DATE OF DICTATION: 05/09/2017 REQUESTING PHYSICIAN: Ariella Ricci MD HISTORY OF PRESENT ILLNESS: This is a 51-year-old woman with a past medical history of stable HIV, ddq-musgsel-opwsbyxys diabetes, who presented to the emergency room on May 06, 2017, with complaints of severe diarrhea and abdominal pain. Her symptoms had started on the weekend and had worsened to the point that she was having a bowel movement every 15 minutes. She denied any vomiting. She denied any constipation. There was no travel or recent sick contacts. She reports eating a gyro in relationship to her symptoms. She had a CT of her abdomen and pelvis done that showed severe colitis of her cecum, ascending colon, and transverse colon. Her lactic acid was over 3. White count was 14,000. She was given IV fluids and Levaquin and Flagyl. Stool studies were sent. I am asked to see her for further evaluation. She reports that on a scale of 10, her symptoms are now a 6. She still is having diarrhea. She has had three episodes this morning, but this is not as bad as it was in the past, and she is having still some abdominal discomfort, but less pain than on admission. She is having no fevers or chills. She otherwise appears comfortable. She is tolerating liquids without vomiting. PAST MEDICAL HISTORY: Is notable for stable HIV disease. Her CD4 count is 684 with an unsuppressed viral load from March of this year. She has a history of hypertension, diabetes, GERD, fibromyalgia, asthma, and anemia. She has a history of a in the past, and she has had a neck biopsy negative in the past. As well, she has a history of hyperlipidemia. MEDICATIONS: As an outpatient include Ambien, Restoril, Januvia, Zoloft, Requip, Prilosec, metformin, Claritin, Neurontin, Teva K, Lipitor, aspirin, Norvasc, albuterol, Silverex Ointment, Epzicom. FAMILY HISTORY: Noncontributory. SOCIAL HISTORY: She lives at home. Her grandson lives with her, who is 7. There is no history of any substance use. She stopped smoking 10 years ago. REVIEW OF SYSTEMS: As per HPI, she reported subjective fevers at home. PHYSICAL EXAMINATION Vital signs: Now her maximum temperature is 99.7, current temperature is 99.1, pulse of 84, blood pressure 144/87, respiratory rate 18, and she is saturating 99%. HEENT: She is normocephalic. Her eyes are anicteric. Neck: Supple. Lungs: Clear to auscultation. Heart: Regular rate and rhythm. Abdomen: Soft. She has diffuse hyperactive bowel sounds. She has diffuse discomfort on palpation of her abdomen. She has no rebound or guarding. DIAGNOSTIC DATA: White count on admission was 14.8, today it is 5.9, hemoglobin 12.4. Chemistries are lactic acid now 0.9, BUN 4, creatinine 0.6, AST 87, ALT 184, alkaline phosphatase 257 (which is markedly improved). Cultures are pending. She had a C. difficile back which is negative, and stool Gram stain as well as stool cultures are all pending at this time. Blood cultures were negative. CT scan findings were as previously stated. SUMMARY: This is a 51-year-old woman admitted with gastroenteritis/colitis, suspect infectious. She has no prior history of colitis in the past, abnormal liver function tests, which are resolving, and stable human immunodeficiency virus disease. I would continue ART, follow up her stool studies. I would continue Levaquin and Flagyl as ordered. Further recommendations to follow based her clinical course. BELKIS LU M.D. JOSE [id number]
--- NOTE | 2017-05-09 15:25 | PN ---
Physical Exam: SUBJECTIVE: Patient seen and examined Continues to have lower abdominal pain, but no diarrhea today. OBJECTIVE: Vital Signs Temperature 99.3 F 05/09/17 14:04 Pulse Rate 90 05/09/17 14:04 Respiratory Rate 18 05/09/17 14:04 Blood Pressure 138/111 05/09/17 14:04 O2 Sat by Pulse Oximetry (%) 99 05/09/17 08:15 GENERAL: The patient is awake, alert, and fully oriented, in no acute distress. HEAD: Normal with no signs of trauma. EYES: PERRL, extraocular movements intact, sclera anicteric, conjunctiva clear. No ptosis. ENT: Ears normal, nares patent, oropharynx clear without exudates, moist mucous membranes. NECK: Trachea midline, full range of motion, supple. LUNGS: Breath sounds equal, clear to auscultation bilaterally, no wheezes, no crackles, no accessory muscle use. HEART: Regular rate and rhythm, S1, S2 without murmur, rub or gallop. ABDOMEN: Soft, mild tenderness lower abdomen , nondistended, normoactive bowel sounds, no guarding, no rebound, no hepatosplenomegaly, no masses. EXTREMITIES: 2+ pulses, warm, well-perfused, no edema. NEUROLOGICAL: Cranial nerves II through XII grossly intact. Normal speech, gait not observed. PSYCH: Normal mood, normal affect. SKIN: Warm, dry, normal turgor, no rashes or lesions noted CBCD WBC 5.9 K/mm3 (4.0-10.0) 05/09/17 07:19 RBC 4.24 M/mm3 (3.60-5.2) 05/09/17 07:19 Hgb 12.4 GM/dL (10.7-15.3) 05/09/17 07:19 Hct 37.3 % (32.4-45.2) 05/09/17 07:19 MCV 87.8 fl (80-96) 05/09/17 07:19 MCHC 33.4 g/dl (32.0-36.0) 05/09/17 07:19 RDW 14.6 % (11.6-15.6) 05/09/17 07:19 Plt Count 217 K/MM3 (134-434) 05/09/17 07:19 MPV 8.5 fl (7.5-11.1) 05/09/17 07:19 CMP Sodium 140 mmol/L (136-145) 05/09/17 07:19 Potassium 3.5 mmol/L (3.5-5.1) 05/09/17 07:19 Chloride 102 mmol/L (98-107) 05/09/17 07:19 Carbon Dioxide 27 mmol/L (21-32) 05/09/17 07:19 Anion Gap 11 (8-16) 05/09/17 07:19 BUN 4 mg/dL (7-18) L D 05/09/17 07:19 Creatinine 0.6 mg/dL (0.55-1.02) 05/09/17 07:19 Creat Clearance w eGFR > 60 (>60) 05/09/17 07:19 Random Glucose 164 mg/dL (74-106) H D 05/09/17 07:19 Calcium 8.7 mg/dL (8.5-10.1) 05/09/17 07:19 Total Bilirubin 0.4 mg/dL (0.2-1.0) 05/09/17 07:19 AST 87 U/L (15-37) H 05/09/17 07:19 ALT 185 U/L (12-78) H 05/09/17 07:19 Alkaline Phosphatase 257 U/L (45-117) H 05/09/17 07:19 Total Protein 6.4 g/dl (6.4-8.2) 05/09/17 07:19 Albumin 3.2 g/dl (3.4-5.0) L 05/09/17 07:19 CARDIAC ENZYMES Creatine Kinase 46 IU/L (26-192) 05/06/17 11:40 Troponin I < 0.02 ng/ml (0.00-0.05) 05/06/17 11:40 Active Medications Generic Name Dose Route Start Last Admin Trade Name Freq PRN Reason Stop Dose Admin Abacavir Sulfate 600 mg 05/08/17 14:00 05/09/17 09:41 Ziagen - PO 600 mg DAILY MALGORZATA Administration Acetaminophen 650 mg 05/06/17 19:49 05/08/17 10:05 Tylenol - PO 650 mg Q4H PRN Administration FEVER OR PAIN Albuterol Sulfate 2 puff 05/06/17 20:24 05/08/17 10:00 Ventolin Hfa Inhaler - IH 2 puff Q4H PRN Administration SHORT OF BREATH/WHEEZING Alprazolam 0.25 mg 05/08/17 13:57 Xanax - PO Q6H PRN ANXIETY Amlodipine Besylate 5 mg 05/07/17 10:00 05/09/17 09:42 Norvasc - PO 5 mg DAILY MALGORZATA Administration Aspirin 81 mg 05/07/17 10:00 05/09/17 09:42 Ecotrin - PO 81 mg DAILY MALGORZATA Administration Fluticasone Propionate 2 spray 05/06/17 22:00 05/09/17 09:50 Flonase - NS Not Given BID MALGORZATA Gabapentin 300 mg 05/06/17 22:00 05/09/17 06:15 Neurontin - PO 300 mg TID MALGORZATA Administration Sodium Chloride 1,000 mls @ 125 mls/hr 05/06/17 20:00 05/08/17 21:39 Normal Saline - IV 125 mls/hr ASDIR MALGORZATA Administration Metronidazole 50 mls @ 50 mls/hr 05/06/17 22:00 05/09/17 14:35 Flagyl 250mg Premixed Ivpb - IVPB 50 mls/hr Q6H-IV MALGORZATA Administration Levofloxacin 100 mls @ 100 mls/hr 05/07/17 10:00 05/09/17 09:40 Levaquin 500 Mg Premixed Ivpb - IVPB 100 mls/hr DAILY MALGORZATA Administration Famotidine/Sodium Chloride 50 mls @ 100 mls/hr 05/08/17 23:45 05/09/17 09:40 Pepcid 20 Mg Premixed Ivpb - IVPB 100 mls/hr BID MALGORZATA Administration Lamivudine 300 mg 05/08/17 14:00 05/09/17 09:41 Epivir - PO 300 mg DAILY MALGORZATA Administration Metformin HCl 500 mg 05/09/17 16:30 Glucophage - PO BIDAC MALGORZATA Non-Formulary Medication 1 applic 05/06/17 22:00 Acyclovir 5% Ointment [Zovirax 5% Ointment -] TP 5XD MALGORZATA Nystatin 1 applic 05/07/17 00:00 05/09/17 11:59 Mycostatin Cream - TP Not Given Q6H MALGORZATA Ropinirole HCl 0.25 mg/ 0.75 mg 05/06/17 22:00 05/08/17 21:39 Ropinirole HCl 0.5 mg PO 0.75 mg HS MALGORZATA Administration Sertraline HCl 25 mg 05/09/17 07:00 05/09/17 06:15 Zoloft - PO 25 mg AM MALGORZATA Administration Home Medications Medication Instructions Recorded Fluticasone Prop 0.05% Nasal 2 spray NS BID 12/08/11 [Flonase -] Omeprazole [Prilosec] 20 mg PO DAILY #30 capsule. 07/02/16 Acetaminophen [Tylenol -] 1 - 2 tab PO BID PRN #30 tablet 09/03/16 MDD 4 Acyclovir 5% Ointment [Zovirax 5% 1 applic TP 5XD #1 tube 12/04/16 Ointment -] Sertraline HCl [Zoloft] 25 mg PO AM #30 tablet 12/04/16 Temazepam [Restoril] 7.5 mg PO HS #30 capsule MDD 1 12/04/16 Zolpidem Tartrate [Ambien] 5 mg PO HS #15 tablet MDD 1 12/04/16 Gabapentin [Neurontin -] 300 tab PO TID #90 capsule 01/13/17 Loratadine [Claritin -] 10 mg PO DAILY #30 tablet 01/13/17 Abacavir Sulfate/Lamivudine 1 tab PO DAILY #30 tablet 02/10/17 [Epzicom -] Albuterol 0.083% Nebulizer Radha 1 neb NEB Q6H #1 box 02/10/17 [Ventolin 0.083% Nebulizer Soln -] Albuterol Sulfate Inhaler - 1 - 2 inh PO Q4H #1 inhaler 02/10/17 [Ventolin HFA Inhaler -] Amlodipine Besylate [Norvasc -] 5 mg PO DAILY #30 tablet 02/10/17 Aspirin [Aspirin EC] 81 mg PO DAILY #30 tablet. 02/10/17 Atorvastatin Ca [Lipitor] 10 mg PO HS #30 tablet 02/10/17 Metformin HCl 500 mg PO BIDAC #60 tablet 02/10/17 Ropinirole HCl [Requip -] 0.25 mg PO HS #30 tablet 03/20/17 Ropinirole HCl [Requip -] 0.5 mg PO HS #30 tablet 03/20/17 Sitagliptin Phosphate [Januvia -] 100 mg PO ONCE #30 tab 05/05/17 Dolutegravir Sodium [Tivicay] 50 mg PO DAILY #30 tablet 04/28/17 Microbiology 05/06/17 15:33 Blood - Peripheral Venous Blood Culture - Preliminary NO GROWTH OBTAINED AFTER 96 HOURS, INCUBATION TO CONTINUE FOR 1 DAYS. 05/06/17 15:33 Blood - Peripheral Venous Blood Culture - Preliminary NO GROWTH OBTAINED AFTER 96 HOURS, INCUBATION TO CONTINUE FOR 1 DAYS. 05/07/17 13:20 Stool Cryptosporidium Antigen - Final 05/07/17 13:20 Stool Salmonella/Shigella Culture - Final NO GROWTH OF SALMONELLA OR SHIGELLA SPECIES OBTAINED 05/07/17 13:20 Stool Campylobacter Culture - Final NO GROWTH OF CAMPYLOBACTER SPECIES OBTAINED 05/07/17 13:20 Stool Yersinia Culture - Final NO GROWTH OF YERSINIA SPECIES OBTAINED 05/07/17 13:20 Stool Vibrio Culture - Final NO GROWTH OF VIBRIO SPECIES OBTAINED 05/07/17 13:20 Stool Escherichia coli 0157 Culture - Final NO GROWTH OF E COLI 0157 OBTAINED 05/06/17 05:50 Stool Gram Stain - Final 05/07/17 10:10 Stool Clostridium difficile Antigen (CRISPIN) - Final 05/07/17 10:10 Stool Clostridium difficile Toxin Assay - Final 05/06/17 12:47 Urine - Urine Clean Catch Urine Culture - Final Contaminated: Please Repeat ASSESSMENT/PLAN: Patient is a 51 yo F that presents to the ED complaining of 1 week hx of generalized cramping abdominal pain. # s/p sepsis due to infective Colitis on IV Levaquin and Flagyl improving , continues to have mild lower abdominal pain. # Acute Infective Colitis continue IV antibiotic, CTA of abd that showed severe cecal, ascending colon and transverse colon colitis # Elevated liver enzymes started to trend down, appreciate GI consult . # HIV (human immunodeficiency virus infection); CD4 above 500 ;continue home meds., ID on the case, , patient goes to [facility] # Asthma Albuterol PRN for wheezing. # Hypertension controlled # DM type 2 (diabetes mellitus, type 2) BGM 2x per day ,continue her Metformin # Fibromyalgia continue gabapentin. DVT Px: SCds. Visit type - Emergency Visit Emergency Visit: Yes ED Registration Date: 05/06/17 Care time: The patient presented to the Emergency Department on the above date and was hospitalized for further evaluation of their emergent condition. - New Patient This patient is new to me today: No - Critical Care Critical Care patient: No
--- NOTE | 2017-05-09 15:40 | CON.GI ---
Consult Consult Specialty:: gastroenterology - History of Present Illness History of Present Illness: 51y/o female was admitted with acute diarrhea, lactic acidosis and inflammed right colon. She continue to have diarrhea after meals and abdominal bloating. She denies abdominal pain, nausea and vomiting. - Past Medical History ...: No ([place]) - Alcohol/Substance Use Hx Alcohol Use: No - Smoking History Smoking history: Former smoker Have you smoked in the past 12 months: No Aproximately how many cigarettes per day: 40 If you are a former smoker, when did you quit?: 10 YEARS AGO Home Medications - Allergies Allergies/Adverse Reactions: Allergies Allergy/AdvReac Type Severity Reaction Status Date / Time No Known Allergies Allergy Verified 05/06/17 08:20 - Home Medications Home Medications: Ambulatory Orders Fluticasone Prop 0.05% Nasal [Flonase -] 2 spray NS BID 12/08/11 Omeprazole [Prilosec] 20 mg PO DAILY #30 capsule. 07/02/16 Acetaminophen [Tylenol -] 1 - 2 tab PO BID PRN #30 tablet MDD 4 09/03/16 Acyclovir 5% Ointment [Zovirax 5% Ointment -] 1 applic TP 5XD #1 tube 12/04/16 Sertraline HCl [Zoloft] 25 mg PO AM #30 tablet 12/04/16 Temazepam [Restoril] 7.5 mg PO HS #30 capsule MDD 1 12/04/16 Zolpidem Tartrate [Ambien] 5 mg PO HS #15 tablet MDD 1 12/04/16 Gabapentin [Neurontin -] 300 tab PO TID #90 capsule 01/13/17 Loratadine [Claritin -] 10 mg PO DAILY #30 tablet 01/13/17 Abacavir Sulfate/Lamivudine [Epzicom -] 1 tab PO DAILY #30 tablet 02/10/17 Albuterol 0.083% Nebulizer Radha [Ventolin 0.083% Nebulizer Soln -] 1 neb NEB Q6H #1 box 02/10/17 Albuterol Sulfate Inhaler - [Ventolin HFA Inhaler -] 1 - 2 inh PO Q4H #1 inhaler 02/10/17 Amlodipine Besylate [Norvasc -] 5 mg PO DAILY #30 tablet 02/10/17 Aspirin [Aspirin EC] 81 mg PO DAILY #30 tablet. 02/10/17 Atorvastatin Ca [Lipitor] 10 mg PO HS #30 tablet 02/10/17 Metformin HCl 500 mg PO BIDAC #60 tablet 02/10/17 Ropinirole HCl [Requip -] 0.25 mg PO HS #30 tablet 03/20/17 Ropinirole HCl [Requip -] 0.5 mg PO HS #30 tablet 03/20/17 Sitagliptin Phosphate [Januvia -] 100 mg PO ONCE #30 tab 03/20/17 Dolutegravir Sodium [Tivicay] 50 mg PO DAILY #30 tablet 04/28/17 Review of Systems - Review of Systems Constitutional: denies: Fever Eyes: denies: Blurred Vision HENT: denies: Difficult Swallowing Neck: denies: Decreased ROM Cardiovascular: denies: Chest Pain Respiratory: denies: Cough Gastrointestinal: reports: Bloating, Diarrhea. denies: Abdominal Pain, Constipation, Indigestion, Melena Physical Exam-GI Vital Signs: Vital Signs Temperature 99.3 F 05/09/17 14:04 Pulse Rate 90 05/09/17 14:04 Respiratory Rate 18 05/09/17 14:04 Blood Pressure 138/111 05/09/17 14:04 O2 Sat by Pulse Oximetry (%) 99 05/09/17 08:15 Constitutional: Yes: Well Nourished Eyes: Yes: Conjunctiva Clear HENT: Yes: Atraumatic Neck: Yes: Supple Cardiovascular: Yes: Regular Rate and Rhythm Respiratory: Yes: CTA Bilaterally ...Palpate: Yes: Soft. No: Firm/Rigid, Guarding, Hepatomegaly, Mass, Pulsatile Mass, Splenomegaly, Tenderness, Tenderness, Epigastium ...Percussion: Yes: Tympanitic Labs: CBC, BMP 05/09/17 07:19 05/09/17 07:19 Hepatic Panel Total Bilirubin 0.4 mg/dL (0.2-1.0) 05/09/17 07:19 AST 87 U/L (15-37) H 05/09/17 07:19 ALT 185 U/L (12-78) H 05/09/17 07:19 Alkaline Phosphatase 257 U/L (45-117) H 05/09/17 07:19 Albumin 3.2 g/dl (3.4-5.0) L 05/09/17 07:19 Imaging - Results Cat Scan: Report Reviewed Problem List - Problems (1) Drug-induced hepatic toxicity Assessment/Plan: r> discontinue gabapentin trend LFTS ID on board to adjust HIV meds Code(s): T50.901A - POISONING BY UNSP DRUG/MEDS/BIOL SUBST, ACCIDENTAL, INIT K71.6 - TOXIC LIVER DISEASE WITH HEPATITIS, NOT ELSEWHERE CLASSIFIED
[2017-05-09] MEDS: metFORMIN HCL 500 MG TABLET (FP) PO SCH (17:02)
[2017-05-09] MEDS: SODIUM CHLORIDE 1,000 ML IV SCH (20:00)
[2017-05-09] MEDS: ROPINIROLE HCL PO SCH (21:31)
[2017-05-10] MEDS ORDERED: PT OWN MED DRAWER 7, Y5N ONE ×4 (03:03→11:45)
[2017-05-10] MEDS: METRONIDAZOLE PREMIXED IVPB 50 ML IVPB SCH ×2 (03:06→09:25)
[2017-05-10] MEDS: SODIUM CHLORIDE 1,000 ML IV SCH (03:10)
[2017-05-10] MEDS: SERTRALINE HCL 25 MG TABLET (FP) PO SCH (06:06)
[2017-05-10] MEDS: metFORMIN HCL 500 MG TABLET (FP) PO SCH (06:06)
[2017-05-10] MEDS: NYSTATIN 100,000 UNIT/GM TOPICAL CREAM 15 GM TUBE TP SCH ×3 (06:07→14:46)
[2017-05-10 10:05] LABS: ALBUMIN 3.3 g/dl (3.4-5.0); ALK PHOS 246 U/L (45-117); ANION GAP 10 (8-16); BILIRUBIN,TOTAL 0.3 mg/dL (0.2-1.0); CALCIUM 9.2 mg/dL (8.5-10.1); CO2 28 mmol/L (21-32); CREATININE 0.8 mg/dL (0.55-1.02); GLUCOSE,RANDOM 208 mg/dL (74-106); SGOT/AST 115 U/L (15-37); SGPT/ALT 166 U/L (12-78)
[2017-05-10] MEDS: lamiVUDine 150 MG TABLET PO SCH (10:27)
[2017-05-10] MEDS: DOLUTEGRAVIR SODIUM 50 MG TABLET PO SCH (10:28)
[2017-05-10] MEDS: ASPIRIN COATED 81 MG TABLET.EC PO SCH (10:28)
[2017-05-10] MEDS: ABACAVIR SULFATE 300 MG TABLET PO SCH (10:30)
[2017-05-10] MEDS: amLODIPine BESYLATE 5 MG TABLET (FP) PO SCH (11:24)
[2017-05-10] MEDS: FAMOTIDINE 20 MG/50 ML IVPB 50 ML IVPB SCH (11:31)
[2017-05-10] MEDS: FLUTICASONE PROP 0.05% 16 GM NASAL SPRAY NS SCH (11:34)
--- NOTE | 2017-05-10 12:26 | PN ---
Progress Note (short form) - Note Progress Note: diarrhea resolved tolerating diet no abdominal pain Vital Signs Period Temp Pulse Resp BP Sys/Harrison Pulse Ox Last 24 Hr 98.8 F-99.3 F 90-97 18-20 137-152/83-111 99 cor-rrr lungs clear abd soft,nt ext no edema CBC, BMP 05/09/17 07:19 05/10/17 09:15 Microbiology 05/07/17 13:20 Stool Salmonella/Shigella Culture - Final NO GROWTH OF SALMONELLA OR SHIGELLA SPECIES OBTAINED 05/07/17 13:20 Stool Campylobacter Culture - Final NO GROWTH OF CAMPYLOBACTER SPECIES OBTAINED 05/07/17 13:20 Stool Yersinia Culture - Final NO GROWTH OF YERSINIA SPECIES OBTAINED 05/07/17 13:20 Stool Vibrio Culture - Final NO GROWTH OF VIBRIO SPECIES OBTAINED 05/07/17 13:20 Stool Escherichia coli 0157 Culture - Final NO GROWTH OF E COLI 0157 OBTAINED 05/06/17 15:33 Blood - Peripheral Venous Blood Culture - Preliminary NO GROWTH OBTAINED AFTER 72 HOURS, INCUBATION TO CONTINUE FOR 2 DAYS. 05/06/17 15:33 Blood - Peripheral Venous Blood Culture - Preliminary NO GROWTH OBTAINED AFTER 72 HOURS, INCUBATION TO CONTINUE FOR 2 DAYS. 05/06/17 05:50 Stool Gram Stain - Final 05/07/17 10:10 Stool Clostridium difficile Antigen (CRISPIN) - Final 05/07/17 10:10 Stool Clostridium difficile Toxin Assay - Final 05/06/17 12:47 Urine - Urine Clean Catch Urine Culture - Final Contaminated: Please Repeat a/p gastroenteritis/colitis- suspect infectious, no prior history-resolving, no diarrhea today, abdominal pain is resolved abnl lfts resolving- gabapentin stopped, would d/c zoloft- patient is NOT taking as outpt stable HIV continue art as ordered stool studies negative continue levaquin/flagyl- would finish total of 7 days -can switch to po Problem List - Problems (1) Colitis Code(s): K52.9 - NONINFECTIVE GASTROENTERITIS AND COLITIS, UNSPECIFIED (2) Elevated liver enzymes Code(s): R74.8 - ABNORMAL LEVELS OF OTHER SERUM ENZYMES (3) HIV (human immunodeficiency virus infection) Code(s): Z21 - ASYMPTOMATIC HUMAN IMMUNODEFICIENCY VIRUS INFECTION STATUS
[2017-05-10 13:20] VITALS: BP 147/78; PULSE 82; TEMP 98.6
--- NOTE | 2017-05-10 14:40 | DS ---
Physical Exam: SUBJECTIVE: Patient seen and examined Patient is feeling better with no acute distress. No further diarrhea. No abdominal pain. Had a formed soft BM today. OBJECTIVE: Vital Signs Temperature 98.6 F 05/10/17 13:20 Pulse Rate 82 05/10/17 13:20 Respiratory Rate 17 05/10/17 13:20 Blood Pressure 147/78 05/10/17 13:20 O2 Sat by Pulse Oximetry (%) 99 05/09/17 21:00 GENERAL: The patient is awake, alert, and fully oriented, in no acute distress. HEAD: Normal with no signs of trauma. EYES: PERRL, extraocular movements intact, sclera anicteric, conjunctiva clear. No ptosis. ENT: Ears normal, nares patent, oropharynx clear without exudates, moist mucous membranes. NECK: Trachea midline, full range of motion, supple. LUNGS: Breath sounds equal, clear to auscultation bilaterally, no wheezes, no crackles, no accessory muscle use. HEART: Regular rate and rhythm, S1, S2 without murmur, rub or gallop. ABDOMEN: Soft, nontender, nondistended, normoactive bowel sounds, no guarding, no rebound, no hepatosplenomegaly, no masses. EXTREMITIES: 2+ pulses, warm, well-perfused, no edema. NEUROLOGICAL: Cranial nerves II through XII grossly intact. Normal speech, gait is stable. PSYCH: Normal mood, normal affect. SKIN: Warm, dry, normal turgor, no rashes or lesions noted CBCD WBC 5.9 K/mm3 (4.0-10.0) 05/09/17 07:19 RBC 4.24 M/mm3 (3.60-5.2) 05/09/17 07:19 Hgb 12.4 GM/dL (10.7-15.3) 05/09/17 07:19 Hct 37.3 % (32.4-45.2) 05/09/17 07:19 MCV 87.8 fl (80-96) 05/09/17 07:19 MCHC 33.4 g/dl (32.0-36.0) 05/09/17 07:19 RDW 14.6 % (11.6-15.6) 05/09/17 07:19 Plt Count 217 K/MM3 (134-434) 05/09/17 07:19 MPV 8.5 fl (7.5-11.1) 05/09/17 07:19 CMP Sodium 141 mmol/L (136-145) 05/10/17 09:15 Potassium 3.7 mmol/L (3.5-5.1) 05/10/17 09:15 Chloride 103 mmol/L (98-107) 05/10/17 09:15 Carbon Dioxide 28 mmol/L (21-32) 05/10/17 09:15 Anion Gap 10 (8-16) 05/10/17 09:15 BUN 5 mg/dL (7-18) L D 05/10/17 09:15 Creatinine 0.8 mg/dL (0.55-1.02) D 05/10/17 09:15 Creat Clearance w eGFR > 60 (>60) 05/10/17 09:15 Random Glucose 208 mg/dL (74-106) H D 05/10/17 09:15 Calcium 9.2 mg/dL (8.5-10.1) 05/10/17 09:15 Total Bilirubin 0.3 mg/dL (0.2-1.0) D 05/10/17 09:15 AST 115 U/L (15-37) H D 05/10/17 09:15 ALT 166 U/L (12-78) H 05/10/17 09:15 Alkaline Phosphatase 246 U/L (45-117) H 05/10/17 09:15 Total Protein 7.0 g/dl (6.4-8.2) 05/10/17 09:15 Albumin 3.3 g/dl (3.4-5.0) L 05/10/17 09:15 CARDIAC ENZYMES Creatine Kinase 46 IU/L (26-192) 05/06/17 11:40 Troponin I < 0.02 ng/ml (0.00-0.05) 05/06/17 11:40 Current Medications Generic Name Dose Route Start Last Admin Trade Name Freq PRN Reason Stop Dose Admin Abacavir Sulfate 600 mg 05/08/17 14:00 05/10/17 10:30 Ziagen - PO 600 mg DAILY MALGORZATA Administration Acetaminophen 650 mg 05/06/17 19:49 05/08/17 10:05 Tylenol - PO 650 mg Q4H PRN Administration FEVER OR PAIN Albuterol Sulfate 2 puff 05/06/17 20:24 05/08/17 10:00 Ventolin Hfa Inhaler - IH 2 puff Q4H PRN Administration SHORT OF BREATH/WHEEZING Alprazolam 0.25 mg 05/08/17 13:57 Xanax - PO Q6H PRN ANXIETY Amlodipine Besylate 5 mg 05/07/17 10:00 05/10/17 11:24 Norvasc - PO 5 mg DAILY MALGORZATA Administration Aspirin 81 mg 05/07/17 10:00 05/10/17 10:28 Ecotrin - PO 81 mg DAILY MALGORZATA Administration Fluticasone Propionate 2 spray 05/06/17 22:00 05/10/17 11:34 Flonase - NS Not Given BID MALGORZATA Sodium Chloride 1,000 mls @ 125 mls/hr 05/06/17 20:00 05/10/17 03:10 Normal Saline - IV 125 mls/hr ASDIR MALGORZATA Administration Metronidazole 50 mls @ 50 mls/hr 05/06/17 22:00 05/10/17 09:25 Flagyl 250mg Premixed Ivpb - IVPB 50 mls/hr Q6H-IV MALGORZATA Administration Levofloxacin 100 mls @ 100 mls/hr 05/07/17 10:00 05/09/17 09:40 Levaquin 500 Mg Premixed Ivpb - IVPB 100 mls/hr DAILY MALGORZATA Administration Famotidine/Sodium Chloride 50 mls @ 100 mls/hr 05/08/17 23:45 05/10/17 11:31 Pepcid 20 Mg Premixed Ivpb - IVPB 100 mls/hr BID MALGORZATA Administration Lamivudine 300 mg 05/08/17 14:00 05/10/17 10:27 Epivir - PO 300 mg DAILY MALGORZATA Administration Metformin HCl 500 mg 05/09/17 16:30 05/10/17 06:06 Glucophage - PO 500 mg BIDAC MALGORZATA Administration Non-Formulary Medication 1 applic 05/06/17 22:00 Acyclovir 5% Ointment [Zovirax 5% Ointment -] TP 5XD MALGORZATA Nystatin 1 applic 05/07/17 00:00 05/10/17 06:07 Mycostatin Cream - TP Not Given Q6H MALGORZATA Ropinirole HCl 0.25 mg/ 0.75 mg 05/06/17 22:00 05/09/17 21:31 Ropinirole HCl 0.5 mg PO 0.75 mg HS MALGORZATA Administration Home Medications Medication Instructions Recorded Fluticasone Prop 0.05% Nasal 2 spray NS BID 12/08/11 [Flonase -] Omeprazole [Prilosec] 20 mg PO DAILY #30 capsule. 07/02/16 Acyclovir 5% Ointment [Zovirax 5% 1 applic TP 5XD #1 tube 12/04/16 Ointment -] Abacavir Sulfate/Lamivudine 1 tab PO DAILY #30 tablet 02/10/17 [Epzicom -] Albuterol 0.083% Nebulizer Radha 1 neb NEB Q6H #1 box 02/10/17 [Ventolin 0.083% Nebulizer Soln -] Albuterol Sulfate Inhaler - 1 - 2 inh PO Q4H #1 inhaler 02/10/17 [Ventolin HFA Inhaler -] Amlodipine Besylate [Norvasc -] 5 mg PO DAILY #30 tablet 02/10/17 Aspirin [Aspirin EC] 81 mg PO DAILY #30 tablet. 02/10/17 Metformin HCl 500 mg PO BIDAC #60 tablet 02/10/17 Ropinirole HCl [Requip -] 0.25 mg PO HS #30 tablet 03/20/17 Ropinirole HCl [Requip -] 0.5 mg PO HS #30 tablet 03/20/17 Dolutegravir Sodium [Tivicay] 50 mg PO DAILY #30 tablet 04/28/17 Acidoph/L.bulg/Bif.b/S.thermop 1 each PO BID #60 tablet 05/10/17 [Bacid Caplet] Levofloxacin [Levaquin -] 500 mg PO DAILY #5 tablet 05/10/17 Metronidazole [Flagyl -] 250 mg PO TID #15 tablet 05/10/17 Ropinirole HCl [Requip -] 0.75 mg PO HS tablet 05/10/17 Microbiology 05/07/17 13:20 Stool Cryptosporidium Antigen - Final 05/07/17 13:20 Stool Salmonella/Shigella Culture - Final NO GROWTH OF SALMONELLA OR SHIGELLA SPECIES OBTAINED 05/07/17 13:20 Stool Campylobacter Culture - Final NO GROWTH OF CAMPYLOBACTER SPECIES OBTAINED 05/07/17 13:20 Stool Yersinia Culture - Final NO GROWTH OF YERSINIA SPECIES OBTAINED 05/07/17 13:20 Stool Vibrio Culture - Final NO GROWTH OF VIBRIO SPECIES OBTAINED 05/07/17 13:20 Stool Escherichia coli 0157 Culture - Final NO GROWTH OF E COLI 0157 OBTAINED 05/06/17 15:33 Blood - Peripheral Venous Blood Culture - Preliminary NO GROWTH OBTAINED AFTER 72 HOURS, INCUBATION TO CONTINUE FOR 2 DAYS. 05/06/17 15:33 Blood - Peripheral Venous Blood Culture - Preliminary NO GROWTH OBTAINED AFTER 72 HOURS, INCUBATION TO CONTINUE FOR 2 DAYS. 05/06/17 05:50 Stool Gram Stain - Final 05/07/17 10:10 Stool Clostridium difficile Antigen (CRISPIN) - Final 05/07/17 10:10 Stool Clostridium difficile Toxin Assay - Final 05/06/17 12:47 Urine - Urine Clean Catch Urine Culture - Final Contaminated: Please Repeat HOSPITAL COURSE: Date of Admission:05/06/17 Date of Discharge: 05/10/17 Patient is a 51 yo F that presents to the ED complaining of 1 week hx of generalized cramping abdominal pain. # s/p sepsis due to infective Colitis on IV Levaquin and Flagyl improving wild discharge the patient home on PO levaquin and flagyl for 5 more days. will follow with and since lfTs are elevated. # Acute Infective Colitis s/p IV levaquin and flagyl will discharge her on po levaquin and flagyl , CTA of abd that showed severe cecal, ascending colon and transverse colon colitis. # Elevated liver enzymes started to trend down, Patient will follow with in 2 weeks and will Follow with tomorrow. Gabapentin was discontinued. Possible dose adjustments of ART by ID in the office. Lipitor is discontinued due to elevated levels of LFT, most of the drugs that go through the liver discontinued except ART , adjustment per ID. Further w/u by GI. # HIV (human immunodeficiency virus infection); CD4 above 500 ; continue home meds., ID on the case, , patient goes to [facility] # Asthma Albuterol PRN for wheezing. # Hypertension controlled # DM type 2 (diabetes mellitus, type 2) BGM 2x per day ,continue her Metformin # Fibromyalgia discontinued gabapentin since LFTs are elevated. time taken to discharge 40 minutes. Minutes to complete discharge: 40 Discharge Summary Reason For Visit: COLITIS Current Active Problems Colitis (Acute) DM type 2 (diabetes mellitus, type 2) (Acute) DVT prophylaxis (Acute) Drug-induced hepatic toxicity (Acute) Sepsis (Acute) Vaginal itching (Acute) Condition: Stable - Instructions Diet, Activity, Other Instructions: No dairy products. Referrals: Lila Klein MD [Staff Physician] - 05/11/17 9:00 am Miguel Murillo MD [Staff Physician] - 2 Weeks Disposition: HOME - Home Medications Comprehensive Discharge Medication List: Ambulatory Orders Fluticasone Prop 0.05% Nasal [Flonase -] 2 spray NS BID 12/08/11 Omeprazole [Prilosec] 20 mg PO DAILY #30 capsule. 07/02/16 Acyclovir 5% Ointment [Zovirax 5% Ointment -] 1 applic TP 5XD #1 tube 12/04/16 Abacavir Sulfate/Lamivudine [Epzicom -] 1 tab PO DAILY #30 tablet 02/10/17 Albuterol 0.083% Nebulizer Radha [Ventolin 0.083% Nebulizer Soln -] 1 neb NEB Q6H #1 box 02/10/17 Albuterol Sulfate Inhaler - [Ventolin HFA Inhaler -] 1 - 2 inh PO Q4H #1 inhaler 02/10/17 Amlodipine Besylate [Norvasc -] 5 mg PO DAILY #30 tablet 02/10/17 Aspirin [Aspirin EC] 81 mg PO DAILY #30 tablet. 02/10/17 Metformin HCl 500 mg PO BIDAC #60 tablet 02/10/17 Ropinirole HCl [Requip -] 0.25 mg PO HS #30 tablet 03/20/17 Ropinirole HCl [Requip -] 0.5 mg PO HS #30 tablet 03/20/17 Dolutegravir Sodium [Tivicay] 50 mg PO DAILY #30 tablet 04/28/17 Acidoph/L.bulg/Bif.b/S.thermop [Bacid Caplet] 1 each PO BID #60 tablet 05/10/17 Levofloxacin [Levaquin -] 500 mg PO DAILY #5 tablet 05/10/17 Metronidazole [Flagyl -] 250 mg PO TID #15 tablet 05/10/17 Ropinirole HCl [Requip -] 0.75 mg PO HS tablet 05/10/17 This patient is new to me today: No Emergency Visit: Yes ED Registration Date: 05/06/17 Care time: The patient presented to the Emergency Department on the above date and was hospitalized for further evaluation of their emergent condition. Critical Care patient: No - Discharge Referral Referred to [facility] Med P.C.: No
[2017-05-12 16:28] LABS: PARASITES CONCENTRATED SMEAR Final report (.)
== END 2017-05-10 15:24 | disposition home or self-care (01) | DRG 720 ==
LOC: JER 08:14 → JERBED 17:53 → J4W 05-07 14:08 → J5S 05-09 18:48
PROVIDERS: ADMIT Internal Medicine; ATTEND Internal Medicine
DX: A41.9 Sepsis, unspecified organism (principal); A08.8 Other specified intestinal infections; I10 Essential (primary) hypertension; J45.909 Unspecified asthma, uncomplicated; D64.9 Anemia, unspecified; M79.7 Fibromyalgia; R19.7 Diarrhea, unspecified; D72.828 Other elevated white blood cell count; K76.0 Fatty (change of) liver, not elsewhere classified; G25.81 Restless legs syndrome; E11.65 Type 2 diabetes mellitus with hyperglycemia; R59.1 Generalized enlarged lymph nodes; R74.8 Abnormal levels of other serum enzymes; T50.901A Poisoning by unspecified drugs, medicaments and biological substances, accidental (unintentional), initial encounter; K71.6 Toxic liver disease with hepatitis, not elsewhere classified; Z79.4 Long term (current) use of insulin; Z87.891 Personal history of nicotine dependence; Z21 Asymptomatic human immunodeficiency virus [HIV] infection status
CPT/HCPCS: 36415; 71010-TC; 74174-TC; 80053; 81003; 81015; 82272; 82550; 83036; 83605; 83690; 83735; 84100; 84484; 85025; 87040; 87045; 87046; 87086; 87177; 87205; 87209; 87324; 87328; 87449; 93005; 93010; 99285-25

== ENCOUNTER 2017-09-30 08:55 | Emergency (ER) | payer OTHER ==
[2017-09-30 09:06] VITALS: BMI 30.7
--- NOTE | 2017-09-30 09:56 | PDOC ---
History of Present Illness - General History Source: Patient - History of Present Illness Occurred: reports: other Pain Location: reports: back <Beti Stephens - Last Filed: 09/30/17 13:03> <Juan Luis Gaona - Last Filed: 10/02/17 11:42> - General Chief Complaint: Pain Stated Complaint: BACK PAIN Time Seen by Provider: 09/30/17 09:29 Past History - Past Medical History Anemia: Yes Asthma: Yes Cancer: No Cardiac Disorders: No CVA: No COPD: No CHF: No Dementia: No Diabetes: Yes GI Disorders: No Disorders: No HTN: Yes Hypercholesterolemia: Yes Liver Disease: No Psychiatric Problems: Yes Seizures: No Thyroid Disease: No Other medical history: FIBROMYALGIA - Suicide/Smoking/Psychosocial Hx Smoking History: Never smoked Have you smoked in the past 12 months: Yes Number of Cigarettes Smoked Daily: 40 If you are a former smoker, when did you quit?: 10 YEARS AGO Cigars Per Day: 0 'Breaking Loose' booklet given: 05/07/17 Hx Alcohol Use: No Drug/Substance Use Hx: No Substance Use Type: None Hx Substance Use Treatment: No <Beti Stephens - Last Filed: 09/30/17 13:03> <Juan Luis Gaona - Last Filed: 10/02/17 11:42> - Past Medical History Allergies/Adverse Reactions: Allergies Allergy/AdvReac Type Severity Reaction Status Date / Time No Known Allergies Allergy Verified 09/30/17 09:06 Home Medications: Ambulatory Orders Omeprazole [Prilosec] 20 mg PO DAILY #30 capsule. 07/02/16 Acidkeyur/Tevin/Bif.b/S.thermop [Bacid Caplet] 1 each PO BID #60 tablet 07/03/17 Amitriptyline HCl [Elavil -] 25 mg PO HS #30 cap 07/03/17 Psyllium [Metamucil (Sugar-Free) -] 1 scoop PO DAILY #1 bottle 07/03/17 Abacavir Sulfate/Lamivudine [Epzicom -] 1 tab PO DAILY #30 tablet 09/29/17 Acyclovir 5% Ointment [Zovirax 5% Ointment -] 1 applic TP 5XD #1 tube 09/29/17 Albuterol 0.083% Nebulizer Radha [Ventolin 0.083% Nebulizer Soln -] 1 neb NEB Q6H #1 box 09/29/17 Albuterol Sulfate Inhaler - [Ventolin HFA Inhaler -] 1 - 2 inh PO Q4H #1 inhaler 09/29/17 Amlodipine Besylate [Norvasc -] 5 mg PO DAILY #30 tablet 09/29/17 Aspirin [Aspirin EC] 81 mg PO DAILY #30 tablet. 09/29/17 Atorvastatin Calcium [Lipitor] 1 tab PO DAILY #30 tab 09/29/17 Cyclobenzaprine HCl [Flexeril -] 10 mg PO HS #30 tablet 09/29/17 Diphenhydramine HCl [Benadryl Capsule -] 25 mg PO Q8H PRN #30 capsule MDD 3 Dolutegravir Sodium [Tivicay] 50 mg PO DAILY #30 tablet 09/29/17 Fluticasone Prop 0.05% Nasal [Flonase -] 2 spray NS BID #1 bottle 09/29/17 Gabapentin [Neurontin] 400 mg PO TID 09/29/17 Hydrocortisone 1% Cream [Hytone 1% Cream -] 1 applic TP TID #1 tube 09/29/17 Loratadine [Claritin -] 10 mg PO DAILY #30 tablet 09/29/17 Metformin HCl 2 tab PO BIDAC #60 tablet 09/29/17 Naproxen [Naprosyn -] 500 mg PO DAILY PRN #30 tablet MDD 1 09/29/17 Nebulizer [Compact Compressor Nebulizer] 1 each ASDIR #1 each 09/29/17 Nitrofurantoin Monohyd/M-Cryst [Macrobid -] 1 tab PO DAILY #30 tab 09/29/17 Ropinirole HCl [Requip -] 0.5 mg PO HS #30 tablet 09/29/17 Sitagliptin Phosphate [Januvia -] 1 tab PO DAILY #30 tab 09/29/17 Valacyclovir HCl [Valtrex -] 1 tab PO DAILY #30 tab 09/29/17 Review of Systems - Review of Systems Constitutional: No: Chills, Fever ABD/GI: No: Nausea, Vomiting, Abdominal cramping : No: Burning, Dysuria, Flank Pain, Hematuria <[place]er,Petra-Mitzi - Last Filed: 09/30/17 13:03> *Physical Exam - Vital Signs Last Vital Signs Temp Pulse Resp BP Pulse Ox 98.3 F 115 H 20 169/97 98 09/30/17 09:02 09/30/17 09:02 09/30/17 09:02 09/30/17 09:02 09/30/17 09:02 - Physical Exam General Appearance: Yes: Appropriately Dressed. No: Apparent Distress HEENT: positive: Normal Voice Neck: positive: Supple Respiratory/Chest: positive: Lungs Clear, Labored Respiration. negative: Respiratory Distress Cardiovascular: positive: Regular Rate, S1, S2 Gastrointestinal/Abdominal: positive: Soft. negative: Tender Musculoskeletal: negative: CVA Tenderness Integumentary: positive: Dry, Warm Neurologic: positive: Fully Oriented, Alert, Normal Mood/Affect <Beti Stephens - Last Filed: 09/30/17 13:03> - Vital Signs Last Vital Signs Temp Pulse Resp BP Pulse Ox 98.1 F 100 H 20 145/90 100 09/30/17 13:20 09/30/17 13:20 09/30/17 13:20 09/30/17 13:20 09/30/17 13:20 <Juan Luis Gaona - Last Filed: 10/02/17 11:42> ED Treatment Course - LABORATORY CBC & Chemistry Diagram: 09/30/17 09:54 09/30/17 09:54 - RADIOLOGY Radiology Studies Ordered: Category Date Time Status ABDOMEN & PELVIS CT W/O CONTR [CT] Stat CT Scan 09/30/17 09:43 Ordered <Beti Stephens - Last Filed: 09/30/17 13:03> - LABORATORY CBC & Chemistry Diagram: 09/30/17 09:54 09/30/17 09:54 - ADDITIONAL ORDERS Additional order review: 09/30/17 10:15 Urine Culture - Final Urine - Urine Clean Catch NO GROWTH OBTAINED 09/30/17 09:54 RBC 4.44 MCV 88.9 MCHC 32.7 RDW 13.7 MPV 8.1 Neutrophils % 58.5 Lymphocytes % 32.0 Monocytes % 7.0 Eosinophils % 1.8 Basophils % 0.7 - Medications Given in the ED: ED Medications Discontinued Medications Generic Name Dose Route Start Last Admin Trade Name Freq PRN Reason Stop Dose Admin Ibuprofen 800 mg 09/30/17 11:08 09/30/17 11:12 Motrin - PO 09/30/17 11:09 800 mg ONCE ONE Administration Ketorolac Tromethamine 30 mg 09/30/17 10:36 09/30/17 11:12 Toradol Injection - IVPUSH 09/30/17 10:37 Not Given ONCE ONE <Juan Luis Gaona - Last Filed: 10/02/17 11:42> Medical Decision Making - Medical Decision Making 09/30/17 09:53 52 yo F, h/o HIV on ART, cd4 in the 600s, unknown VL, recurrent UTIs, here w/ upper back pain x 4 days, unable to describe, 05/25 and worse w/ position, not improving w/ OTC meds. States she was seen by her PMD yesterday w/ unremarkable spinal xrays and had US which showed "a mass on my right side" as per pt. Pt was given rx for naproxen and flexeril but has not yet filled rx for unclear reasons. Pt denies recent trauma. No CP, SOB or palpitations. No obvious RF for DVT/PE See exam Upper back pain Possibly MSK Neg T/S spine and CXR in PMD's office yesterday Mild R hydro w/ significant post void residual on US but did not detect stone Pt well wyatt but tachy at triage to 115 w/ unremarkable exam otherwise -will check labs abd CT at this time 09/30/17 09:56 09/30/17 12:38 Labs unremarkable and mild right hydronephrosis seen on ultrasound cannot be appreciated on CT as per radiology, no other acute findings at this time. Patient's back pain better with meds in ED and HR now 85 on rpt. Will dc with pain control and PMD follow-up <Beti Stephens - Last Filed: 09/30/17 13:03> - Medical Decision Making 10/02/17 11:42 The patient was seen and evaluated in conjunction with THERESA Stephens under my direct supervision, ancillary studies were reviewed. I agree with the plan as outlined by THERESA Stephens . <Juan Luis Gaona - Last Filed: 10/02/17 11:42> *DC/Admit/Observation/Transfer <Beti Stephens - Last Filed: 09/30/17 13:03> <Juan Luis Gaona - Last Filed: 10/02/17 11:42> Diagnosis at time of Disposition: Back pain Qualifiers: Back pain location: thoracic back pain Chronicity: acute Back pain laterality: bilateral Qualified Code(s): M54.6 - Pain in thoracic spine - Discharge Dispostion Disposition: HOME Condition at time of disposition: Improved - Patient Instructions Additional Instructions: Your labs and CAT scan were unremarkable. The cause of your back pain is possibly muscular. Please fill prescription for pain meds given to you by your PMD and continue to follow up with Mary Beth
[2017-09-30 10:23] LABS: BASOPHIL 0.7 % (0-2.0); EOSINOPHIL 1.8 % (0-4.5); MCH 29.1 pg (25.7-33.7); MCHC 32.7 g/dl (32.0-36.0); MEAN CELL VOLUME 88.9 fl (80-96); MEAN PLT VOLUME 8.1 fl (7.5-11.1); NEUTROPHILS 58.5 % (42.8-82.8); PLATELET COUNT 253 K/MM3 (134-434); RDW 13.7 % (11.6-15.6); WHITE BLOOD COUNT 7.5 K/mm3 (4.0-10.0)
[2017-09-30 10:31] LABS: URINE APPEARANCE CLEAR; URINE BILIRUBIN NEGATIVE (NEGATIVE); URINE BLOOD NEGATIVE (NEGATIVE); URINE COLOR LTYELLOW; URINE GLUCOSE (UA) 1+ (NEGATIVE); URINE KETONE NEGATIVE (NEGATIVE); URINE NITRITE NEGATIVE (NEGATIVE); URINE PROTEIN NEGATIVE (NEGATIVE); URINE UROBILINOGEN NEGATIVE mg/dL (0.2-1.0)
[2017-09-30] MEDS ORDERED: KETOROLAC TROMETHAMINE 30 MG/1 ML VIAL IVPUSH ONE (10:36)
[2017-09-30 10:52] LABS: ALBUMIN 3.9 g/dl (3.4-5.0); ALK PHOS 113 U/L (45-117); ANION GAP 9 (8-16); BILIRUBIN,TOTAL 0.3 mg/dL (0.2-1.0); CALCIUM 9.2 mg/dL (8.5-10.1); CO2 28 mmol/L (21-32); CREATININE 0.7 mg/dL (0.55-1.02); GLUCOSE,RANDOM 215 mg/dL (74-106); SGOT/AST 8 U/L (15-37); SGPT/ALT 31 U/L (12-78); TOT PROT 7.5 g/dl (6.4-8.2)
[2017-09-30] MEDS ORDERED: KETOROLAC TROMETHAMINE 30 MG/1 ML VIAL ONE (11:06)
[2017-09-30] MEDS ORDERED: IBUPROFEN 400 MG TABLET (FP) PO ONE ×2 (11:08→11:10)
[2017-09-30 14:52] VITALS: BP 145/90; PULSE 100; TEMP 98.1
[2017-09-30 17:11] LABS: URINE LEUK ESTERASE Negative (NEGATIVE)
[2017-10-01] MEDS ORDERED: CYCLOBENZAPRINE HCL 5 MG TABLET PO SCH (10:00)
== END 2017-09-30 13:20 | disposition home or self-care (01) ==
LOC: JER 08:55
DX: M54.6 Pain in thoracic spine (principal); J45.909 Unspecified asthma, uncomplicated; D64.9 Anemia, unspecified; E11.9 Type 2 diabetes mellitus without complications; I10 Essential (primary) hypertension; E78.00 Pure hypercholesterolemia, unspecified; F99 Mental disorder, not otherwise specified; Z87.891 Personal history of nicotine dependence
CPT/HCPCS: 36415; 74176-TC; 80053; 81003; 84703; 85025; 87086; 99283-25

== ENCOUNTER 2017-12-09 09:18 | Emergency (ER) | payer OTHER ==
[2017-12-09 09:24] VITALS: BP 156/88; PULSE 107; TEMP 98.9; BMI 30.2
--- NOTE | 2017-12-09 10:20 | PDOC ---
History of Present Illness - General Chief Complaint: Cold Symptoms Stated Complaint: COUGH, BODYACHES Time Seen by Provider: 12/09/17 09:52 History Source: Patient Exam Limitations: No Limitations - History of Present Illness Initial Comments: 12/09/17 10:16 Patient is a 52-year-old female with history of diabetes, HIV, chronic urinary tract infections, anemia, high cholesterol, hypertension, presents with cough which started abruptly yesterday, generalized body aches, back pain, subjective fever. Patient denies any urinary symptoms, is ambulatory to the ER. Currently afebrile. Timing/Duration: 24 hours Severity: moderate Associated Symptoms: reports: cough, fever/chills, headaches, malaise, weakness. denies: chest pain, diaphoresis, loss of appetite, nausea/vomiting, rash, seizure, shortness of breath, syncope Aspirin Received prior to arrival: Yes: no aspirin today Past History - Past Medical History Allergies/Adverse Reactions: Allergies Allergy/AdvReac Type Severity Reaction Status Date / Time No Known Allergies Allergy Verified 12/09/17 09:23 Home Medications: Ambulatory Orders Omeprazole [Prilosec] 20 mg PO DAILY #30 capsule. 07/02/16 Nebulizer [Compact Compressor Nebulizer] 1 each ASDIR #1 each 09/29/17 Abacavir Sulfate/Lamivudine [Epzicom -] 1 tab PO DAILY #30 tablet 12/01/17 Acyclovir 5% Ointment [Zovirax 5% Ointment -] 1 applic TP 5XD #1 tube 12/01/17 Albuterol 0.083% Nebulizer Radha [Ventolin 0.083% Nebulizer Soln -] 1 neb NEB Q6H #1 box 12/01/17 Albuterol Sulfate Inhaler - [Ventolin HFA Inhaler -] 1 - 2 inh PO Q4H #1 inhaler 12/01/17 Amitriptyline HCl [Elavil -] 25 mg PO HS #30 cap 12/01/17 Amlodipine Besylate [Norvasc -] 5 mg PO DAILY #30 tablet 12/01/17 Aspirin [Aspirin EC] 81 mg PO DAILY #30 tablet. 12/01/17 Atorvastatin Calcium [Lipitor] 1 tab PO DAILY #30 tab 12/01/17 Blood Sugar Diagnostic [Test Strips] 1 each ASDIR #1 box 12/01/17 Cyclobenzaprine HCl [Flexeril -] 10 mg PO HS #30 tablet 12/01/17 Diphenhydramine HCl [Benadryl Capsule -] 25 mg PO Q8H PRN #30 capsule MDD 3 Dolutegravir Sodium [Tivicay] 50 mg PO DAILY #30 tablet 12/01/17 Fluticasone Prop 0.05% Nasal [Flonase -] 2 spray NS BID #1 bottle 12/01/17 Gabapentin [Neurontin] 400 mg PO TID #90 capsule 12/01/17 Glipizide 0.5 tab PO BID 12/01/17 Hydrocortisone 1% Cream [Hytone 1% Cream -] 1 applic TP TID #1 tube 12/01/17 Loratadine [Claritin -] 10 mg PO DAILY #30 tablet 12/01/17 Naproxen [Naprosyn -] 500 mg PO DAILY PRN #30 tablet MDD 1 12/01/17 Psyllium [Metamucil (Sugar-Free) -] 1 scoop PO DAILY #1 bottle 12/01/17 Ropinirole HCl [Requip -] 0.5 mg PO HS #30 tablet 12/01/17 Sitagliptin Phos/Metformin HCl [Janumet 50-1,000 mg Tablet] 1 tab PO BID Valacyclovir HCl [Valtrex -] 1 tab PO DAILY #30 tab 12/01/17 Nitrofurantoin Monohyd/M-Cryst [Macrobid -] 1 tab PO DAILY #30 tab 12/07/17 Oseltamivir Phosphate [Tamiflu] 75 mg PO BID 5 Days #10 capsule 12/09/17 Anemia: Yes Asthma: Yes Cancer: No Cardiac Disorders: No CVA: No COPD: No CHF: No Dementia: No Diabetes: Yes GI Disorders: No Disorders: No HTN: Yes Hypercholesterolemia: Yes Liver Disease: No Psychiatric Problems: Yes Seizures: No Thyroid Disease: No - Surgical History Abdominal Surgery: Yes - Suicide/Smoking/Psychosocial Hx Smoking History: Never smoked Have you smoked in the past 12 months: Yes Number of Cigarettes Smoked Daily: 40 If you are a former smoker, when did you quit?: 10 YEARS AGO Cigars Per Day: 0 'Breaking Loose' booklet given: 05/07/17 Hx Alcohol Use: No Drug/Substance Use Hx: No Substance Use Type: None Hx Substance Use Treatment: No Review of Systems - Review of Systems Constitutional: Yes: Fever, Loss of Appetite, Malaise HEENTM: No: Symptoms Reported Respiratory: Yes: Cough. No: Shortness of Breath, SOB with Exertion, SOB at Rest, Wheezing, Productive cough Cardiac (ROS): No: Symptoms Reported, Chest Pain, Lightheadedness ABD/GI: No: Symptoms Reported : No: Symptoms Reported Musculoskeletal: No: Symptoms Reported Integumentary: No: Symptoms Reported Neurological: Yes: Headache. No: Numbness, Paresthesia, Pre-Existing Deficit, Seizure, Tingling, Tremors, Weakness, Unsteady Gait, Ataxia Psychiatric: Yes: Anxiety Hematologic/Lymphatic: No: Symptoms Reported All Other Systems: Reviewed and Negative *Physical Exam - Vital Signs Last Vital Signs Temp Pulse Resp BP Pulse Ox 98.9 F 107 H 18 156/88 99 12/09/17 09:21 12/09/17 09:21 12/09/17 09:21 12/09/17 09:21 12/09/17 09:21 - Physical Exam General Appearance: Yes: Appropriately Dressed, Mild Distress (patient reports that "I just feel well") HEENT: positive: KORIN, Normal ENT Inspection, Normal Voice, Symmetrical, TMs Normal, Pharynx Normal Neck: positive: Trachea midline. negative: Tender, Lymphadenopathy (R), Lymphadenopathy (L), Tender lateral, Tender midline Respiratory/Chest: positive: Lungs Clear, Normal Breath Sounds. negative: Respiratory Distress, Accessory Muscle Use Cardiovascular: positive: Regular Rhythm, Regular Rate Gastrointestinal/Abdominal: positive: Normal Bowel Sounds, Soft. negative: Tender Lymphatic: negative: Adenopathy Musculoskeletal: positive: Normal Inspection. negative: CVA Tenderness (R), CVA Tenderness (L), Decreased Range of Motion, Muscle Spasm, Vertebral Tenderness Extremity: positive: Normal Capillary Refill, Normal Inspection, Normal Range of Motion Integumentary: positive: Normal Color, Dry. negative: Erythema, Swelling, Ecchymosis, Bruising Neurologic: positive: Fully Oriented, Alert, Normal Mood/Affect Medical Decision Making - Medical Decision Making 12/09/17 10:22 A/P: Patient here for evaluation of sudden onset of cough, headache, malaise, generalized pain. Influenza-type illness however patient reports chronic history of urinary tract infections with lower back pain although no CVA tenderness we'll send urinalysis urine culture rapid influenza 12/09/17 10:48 Awaiting results. 12/09/17 20:09 Patient is influenza A positive discharge on Tamiflu follow-up with PMD. Laboratory Results - last 24 hr 12/09/17 10:00 Urine Color Yellow Urine Appearance Clear Urine pH 5.0 Ur Specific [place] 1.024 Urine Protein 1+ H Urine Glucose (UA) 2+ H Urine Ketones Trace H Urine Blood Negative Urine Nitrite Negative Urine Bilirubin Negative Urine Urobilinogen Negative Ur Leukocyte Esterase Negative Urine WBC (Auto) 3 Urine RBC (Auto) 1 Ur Epithelial Cells Rare Urine Mucus Rare I discussed the physical exam findings, ancillary test results and final diagnoses with the patient. I answered all of the patient's questions. The patient was satisfied with the care received and felt comfortable with the discharge plan and treatment plan. The patient will call to arrange follow-up and will return to the Emergency Department with any new, persistent or worsening symptoms. *DC/Admit/Observation/Transfer Diagnosis at time of Disposition: Influenza A - Discharge Dispostion Disposition: HOME Condition at time of disposition: Stable Admit: No - Prescriptions Prescriptions: Oseltamivir Phosphate [Tamiflu] 75 mg PO BID 5 Days #10 capsule - Referrals Referrals: Jo Jordan FNP [Primary Care Provider] - - Patient Instructions Printed Discharge Instructions: Influenza Additional Instructions: You have been diagnosed with influenza a. Please take the medication as directed. You are contagious. Please attempt to avoid contact of multiple individuals as this will cause the infection to spread. Return to emergency room if shortness of breath, wheezing, fever greater than 101, chest pain, or fainting occurs. - Post Discharge Activity
[2017-12-09 10:54] LABS: URINE APPEARANCE CLEAR; URINE BILIRUBIN NEGATIVE (NEGATIVE); URINE BLOOD NEGATIVE (NEGATIVE); URINE COLOR YELLOW; URINE GLUCOSE (UA) 2+ (NEGATIVE); URINE KETONE TRACE (NEGATIVE); URINE LEUK ESTERASE NEGATIVE (NEGATIVE); URINE NITRITE NEGATIVE (NEGATIVE); URINE UROBILINOGEN NEGATIVE mg/dL (0.2-1.0)
[2017-12-09 11:10] LABS: URINE PROTEIN 1+ (NEGATIVE)
[2017-12-09 11:12] LABS: EPI CELLS RARE /HPF (FEW); URINE MUCUS RARE
== END 2017-12-09 11:35 | disposition home or self-care (01) ==
LOC: SUPCPDRO 09:18 → JERFT 09:18
DX: J09.X2 Influenza due to identified novel influenza A virus with other respiratory manifestations (principal); J45.909 Unspecified asthma, uncomplicated; I10 Essential (primary) hypertension; E11.9 Type 2 diabetes mellitus without complications; Z79.84 Long term (current) use of oral hypoglycemic drugs; D64.9 Anemia, unspecified; Z21 Asymptomatic human immunodeficiency virus [HIV] infection status; Z87.891 Personal history of nicotine dependence; Z87.440 Personal history of urinary (tract) infections
CPT/HCPCS: 81003; 81015; 87086; 87804; 99281-25

== ENCOUNTER 2017-12-25 07:54 | Observation (INO) | payer OTHER ==
[2017-12-25] MEDS ORDERED: morphine CARPU-JECT 2 MG/1 ML DISP.SYRIN IVPUSH ONE ×2 (08:37→16:12)
[2017-12-25] MEDS ORDERED: ONDANSETRON 4 MG/2 ML VIAL IVPUSH ONE ×2 (08:37→16:12)
[2017-12-25] MEDS ORDERED: SODIUM CHLORIDE 1,000 ML IV STA ×2 (08:37→14:59)
--- NOTE | 2017-12-25 08:39 | PDOC ---
History of Present Illness - General Chief Complaint: Pain, Acute Stated Complaint: VOMITING/DIARRHEA Time Seen by Provider: 12/25/17 08:25 History Source: Patient Exam Limitations: No Limitations - History of Present Illness Initial Comments: 12/25/17 08:45 Patient is a 52-year-old female with past medical history of NIDDM, asthma, anemia, diverticulitis, HTN, HLD, who presents to the emergency department today complaining of nausea, vomiting, diffuse abdominal pain, and diarrhea for 3 days. She states that her symptoms have gotten worse over the past 3 days. She rates the pain a 10 out of 10 and describes it as a crampy pain. States that she feels bloated. Also admits to a burning sensation in her chest. Denies fevers, chills, sore throat, cough, chest pain, shortness of breath, hematemesis , hematochezia, or urinary symptoms. Past History - Travel Traveled outside of the country in the last 30 days: No Close contact w/someone who was outside of country & ill: No - Past Medical History Allergies/Adverse Reactions: Allergies Allergy/AdvReac Type Severity Reaction Status Date / Time No Known Allergies Allergy Verified 12/25/17 07:55 Home Medications: Ambulatory Orders Abacavir Sulfate/Lamivudine [Epzicom -] 1 tab PO DAILY 12/25/17 Amitriptyline HCl [Elavil -] 25 mg PO HS 12/25/17 Amlodipine Besylate [Norvasc -] 5 mg PO DAILY 12/25/17 Aspirin [ASA -] 81 mg PO DAILY 12/25/17 Atorvastatin Calcium [Lipitor] 10 mg PO HS 12/25/17 Dolutegravir Sodium [Tivicay] 50 mg PO DAILY 12/25/17 Gabapentin 300 mg PO BID 12/25/17 Glipizide 5 mg PO DAILY 12/25/17 Metformin HCl 500 mg PO HS 12/25/17 Nitrofurantoin Monohyd/M-Cryst [Macrobid -] 100 mg PO DAILY 12/25/17 Omeprazole Magnesium [Prilosec Otc] 20 mg PO DAILY 12/25/17 Ropinirole HCl [Requip] 0.25 mg PO HS 12/25/17 Ropinirole HCl [Requip] 0.5 mg PO HS 12/25/17 Sitagliptin Phos/Metformin HCl [Janumet Xr 50-1,000 mg Tablet] 1 each PO DAILY 12/25/17 Anemia: Yes Asthma: Yes Cancer: No Cardiac Disorders: No CVA: No COPD: No CHF: No Dementia: No Diabetes: Yes GI Disorders: Yes (diverticulities) Disorders: No HTN: Yes Hypercholesterolemia: Yes Liver Disease: No Psychiatric Problems: Yes Seizures: No Thyroid Disease: No - Surgical History Abdominal Surgery: Yes - Suicide/Smoking/Psychosocial Hx Smoking History: Never smoked Have you smoked in the past 12 months: Yes Number of Cigarettes Smoked Daily: 40 If you are a former smoker, when did you quit?: 10 YEARS AGO Cigars Per Day: 0 Information on smoking cessation initiated: No 'Breaking Loose' booklet given: 05/07/17 Hx Alcohol Use: No Drug/Substance Use Hx: No Substance Use Type: None Hx Substance Use Treatment: No Review of Systems - Review of Systems Able to Perform ROS?: Yes Comments:: 12/25/17 08:45 CONSTITUTIONAL: Present: loss of appetite Absent: fever, chills, diaphoresis, generalized weakness, malaise HEENT: Absent: rhinorrhea, nasal congestion, throat pain, throat swelling, difficulty swallowing, mouth swelling, ear pain, eye pain, visual changes CARDIOVASCULAR: Absent: chest pain, loss of consciousness, palpitations, irregular heart rate, peripheral edema RESPIRATORY: Absent: cough, shortness of breath, dyspnea with exertion, orthopnea, wheezing, stridor, hemoptysis GASTROINTESTINAL: Present: abdominal pain, abdominal distension, nausea, vomiting, diarrhea Absent : constipation, melena, hematochezia GENITOURINARY: Absent: dysuria, frequency, urgency, hesitancy, hematuria, flank pain, genital pain MUSCULOSKELETAL: Absent: myalgia, arthralgia, joint swelling SKIN: Absent: rash, itching, pallor HEMATOLOGIC/IMMUNOLOGIC: Absent: easy bleeding, easy bruising, lymphadenopathy, frequent infections ENDOCRINE: Absent: unexplained weight gain, unexplained weight loss, heat intolerance, cold intolerance NEUROLOGIC: Absent: headache, focal weakness or paresthesias, dizziness, unsteady gait, seizure, mental status changes, bladder or bowel incontinence PSYCHIATRIC: Absent: anxiety, depression, suicidal or homicidal ideation, hallucinations. Is the patient limited [place] proficient: No *Physical Exam - Vital Signs Last Vital Signs Temp Pulse Resp BP Pulse Ox 97.9 F 133 H 18 133/88 100 12/25/17 07:56 12/25/17 07:56 12/25/17 07:56 12/25/17 07:56 12/25/17 07:56 - Physical Exam Comments: 12/25/17 08:46 GENERAL: Well developed, well nourished. AAOx3. Laying on stretcher, appears uncomfortable. Breathing easily. HEENT: Normocephalic, atraumatic. PERRLA, EOMI. No conjunctival pallor. Sclera are non- icteric. Moist mucous membranes. Oropharynx is clear. NECK: Supple. Full ROM. No JVD. Carotid pulses 2+ and symmetric, without bruits. No thyromegaly. No lymphadenopathy. CARDIOVASCULAR: Regular rate and rhythm. No murmurs, rubs, or gallops. Distal pulses are 2+ and symmetric. PULMONARY: No evidence of respiratory distress. Lungs clear to auscultation bilaterally. No wheezing, rales or rhonchi. ABDOMINAL: Diffuse abdominal tenderess, mildly distended. Soft. No rebound or guarding. No organomegaly. Normoactive bowel sounds. MUSCULOSKELETAL Normal range of motion at all joints. No bony deformities or tenderness. (+) CVA tenderness, b/l. EXTREMITIES: No cyanosis. No clubbing. No edema. No calf tenderness. SKIN: Warm and dry. Normal capillary refill. No rashes. No jaundice. NEUROLOGICAL: Alert, awake, appropriate. Cranial nerves 2-12 intact. No deficits to light touch and temperature in face, upper extremities and lower extremities. No motor deficits in the in face, upper extremities and lower extremities. Normoreflexic in the upper and lower extremities. Normal speech. Toes are down- going bilaterally. Gait is normal without ataxia. PSYCHIATRIC: Cooperative. Good eye contact. Appropriate mood and affect. Heart Score/ECG Review - History History: Slightly suspicious - Electrocardiogram EKG: Normal - Age Age: 45-65 - Risk Factors Risk Factors Heart Score: Yes Hx Hypercholesterolemia, Yes Hx Hypertension, Yes Hx Diabetes Based on the list above the patient has:: >/=3 risk factors or Hx atherosclerotic disease - Troponin Troponin: </= normal limit - Score Heart Score - Total: 3 - ECG Intrepretation Rhythm: Regular Rhythm - Galien Galien: Normal - ST and T Comment:: 12/25/17 10:[address]-T wave changes - ECG Impressions Tachycardia: Sinus ED Treatment Course - LABORATORY CBC & Chemistry Diagram: 12/25/17 08:48 12/25/17 08:48 Medical Decision Making - Medical Decision Making 12/25/17 08:48 Patient is a 52-year-old female with multiple comorbidities, including NIDDM, diverticulitis, who presents emergency department today complaining of diffuse abdominal pain for 3 days. Differential diagnosis includes but is not limited to small bowel obstruction, diverticulitis, perforation, hyperglycemia, viral syndrome. Low suspicion for ACS at this time however given reflux like symptoms will obtain cardiac workup as well. 1.CBC, CMP, cardiac labs, PT/INR, lipase, UA, UC, urine 2.CTAP with contrast (oral), EKG 3.IV fluids, Zofran, morphine 4.reevaluate 12/25/17 10:27 Leukocytosis to 15, however Hgb, hct RBC's all elevated as well suggestive of dehydration. Sugar 230's. BUN/CR slightly elevated also along the lines of dehydration. Pt. currently drinking for CT scan. EKG: rate 109, Sinus tachycardia, normal intervals/axis. no acute ST-T wave changes. 12/25/17 13:48 CTAP shows no evidence of acute SBO, diverticulitis, or colitis. Diffuse hepatoseosis. Viral syndrome vs fatty liver? Pt. still with RUQ pain. 10/02 RUQ US showed fatty liver vs hepatocellular disease. Pt. to get second liter of fluids at this time. 12/25/17 15:58 Pt. tolerating PO, however still with abdominal pain. Will give 2mg of morphine and zofran. Repeat abdominal exam, distended with Tenderness in RUQ. Will place patient in observation for abdominal pain, and dehydration. 12/25/17 16:14 Microblogged Cordell[employer], microblog opened. 12/25/17 17:28 Spoke with Leidy Mendoza. Will place in med/surg obs for abdominal pain and dehydration. Will order new RUQ US at this time. Maintenance fluids ordered. *DC/Admit/Observation/Transfer Diagnosis at time of Disposition: Dehydration Abdominal pain Qualifiers: Abdominal location: right upper quadrant Qualified Code(s): R10.11 - Right upper quadrant pain - Discharge Dispostion Condition at time of disposition: Stable Admit: Yes - Referrals Referrals: Felipe Enciso MD [Primary Care Provider] - - Patient Instructions - Post Discharge Activity
[2017-12-25] MEDS ORDERED: MORPHINE SULFATE 10 MG/1 ML *VIAL ONE ×2 (08:55→16:21)
[2017-12-25] MEDS ORDERED: ONDANSETRON 4 MG/2 ML VIAL ONE ×2 (08:55→16:22)
[2017-12-25 09:15] LABS: BASO % 0.6 % (0-2.0); EOS % 0.2 % (0-4.5); HEMATOCRIT 47.8 % (32.4-45.2); HEMOGLOBIN 15.4 GM/dL (10.7-15.3); LYMPH % 22.3 % (8-40); MCH 28.6 pg (25.7-33.7); MCHC 32.1 g/dl (32.0-36.0); MEAN CELL VOLUME 89.1 fl (80-96); MEAN PLT VOLUME 8.6 fl (7.5-11.1); MONO % 9.4 % (3.8-10.2); NEUT % 67.5 % (42.8-82.8); PLATELET COUNT 356 K/MM3 (134-434); RBC 5.37 M/mm3 (3.60-5.2); RDW 13.8 % (11.6-15.6); WHITE BLOOD COUNT 15.7 K/mm3 (4.0-10.0)
[2017-12-25 09:17] LABS: URINE APPEARANCE SLCLOUDY; URINE BILIRUBIN NEGATIVE (NEGATIVE); URINE BLOOD NEGATIVE (NEGATIVE); URINE COLOR AMBER; URINE GLUCOSE (UA) 1+ (NEGATIVE); URINE KETONE TRACE (NEGATIVE); URINE LEUK ESTERASE TRACE (NEGATIVE); URINE NITRITE NEGATIVE (NEGATIVE); URINE UROBILINOGEN NEGATIVE mg/dL (0.2-1.0)
[2017-12-25 09:25] LABS: URINE PROTEIN 2+ (NEGATIVE)
[2017-12-25 09:27] LABS: EPI CELLS MODERATE /HPF (FEW); URINE HYALINE CAST 52 /lpf; URINE MUCUS FEW
[2017-12-25 09:29] LABS: INR 1.04 (0.82-1.09); PROTHROMBIN TIME (PATIENT) 11.7 SEC (9.98-11.88)
[2017-12-25 09:38] LABS: LIPASE 107 U/L (73-393)
[2017-12-25 09:41] LABS: ALBUMIN 4.6 g/dl (3.4-5.0); ANION GAP 12 (8-16); BILIRUBIN,TOTAL 0.8 mg/dL (0.2-1.0); BLOOD UREA NITROGEN 32 mg/dL (7-18); CALCIUM 9.6 mg/dL (8.5-10.1); CHLORIDE 103 mmol/L (98-107); CO2 19 mmol/L (21-32); CREATININE 1.2 mg/dL (0.55-1.02); GLUCOSE,RANDOM 269 mg/dL (74-106); SGPT/ALT 56 U/L (12-78); SODIUM 134 mmol/L (136-145); TOT PROT 8.7 g/dl (6.4-8.2)
[2017-12-25 09:42] LABS: ALK PHOS 162 U/L (45-117)
[2017-12-25 09:50] LABS: POTASSIUM 4.8 mmol/L (3.5-5.1); SGOT/AST 22 U/L (15-37)
--- NOTE | 2017-12-25 10:34 | PDOC ---
*Physical Exam - Vital Signs Last Vital Signs Temp Pulse Resp BP Pulse Ox 97.9 F 133 H 18 133/88 100 12/25/17 07:56 12/25/17 07:56 12/25/17 07:56 12/25/17 07:56 12/25/17 07:56 - Physical Exam Comments: 12/25/17 10:33 The patient was examined by [THERESA Caro] under my direct supervision. I personally evaluated the patient. I concur with the above findings and the plan of care. 12/25/17 14:[address] of abdomen and pelvis, hepatic steatosis on previous ultrasound, status post cholecystectomy, we'll attempt by mouth challenge. Likely discharge. ED Treatment Course - LABORATORY CBC & Chemistry Diagram: 12/29/17 06:00 12/29/17 06:00 - ADDITIONAL ORDERS Additional order review: Laboratory Results 12/25/17 12/25/17 12/25/17 08:48 08:48 08:48 PT with INR 11.70 INR 1.04 Sodium Potassium Chloride Carbon Dioxide Anion Gap BUN Creatinine Creat Clearance w eGFR Random Glucose Calcium Total Bilirubin AST ALT Alkaline Phosphatase Creatine Kinase Troponin I Total Protein Albumin Lipase Urine Color [place] Urine Appearance Slcloudy Urine pH 5.0 Ur Specific [place] 1.029 Urine Protein 2+ H Urine Glucose (UA) 1+ H Urine Ketones Trace H Urine Blood Negative Urine Nitrite Negative Urine Bilirubin Negative Urine Urobilinogen Negative Ur Leukocyte Esterase Trace Urine WBC (Auto) 5 Urine RBC (Auto) 2 Ur Epithelial Cells Moderate Hyaline Casts 52 Urine Mucus Few Urine HCG, Qual Negative 12/25/17 12/25/17 08:48 08:48 PT with INR INR Sodium 134 L Potassium 4.8 Chloride 103 Carbon Dioxide 19 L Anion Gap 12 BUN 32 H Creatinine 1.2 H Creat Clearance w eGFR 47.18 Random Glucose 269 H Calcium 9.6 Total Bilirubin 0.8 D AST 22 ALT 56 Alkaline Phosphatase 162 H Creatine Kinase 57 Troponin I < 0.02 Total Protein 8.7 H Albumin 4.6 Lipase 107 Urine Color Urine Appearance Urine pH Ur Specific [place] Urine Protein Urine Glucose (UA) Urine Ketones Urine Blood Urine Nitrite Urine Bilirubin Urine Urobilinogen Ur Leukocyte Esterase Urine WBC (Auto) Urine RBC (Auto) Ur Epithelial Cells Hyaline Casts Urine Mucus Urine HCG, Qual 12/25/17 08:48 RBC 5.37 H MCV 89.1 MCHC 32.1 RDW 13.8 MPV 8.6 Neutrophils % 67.5 Lymphocytes % 22.3 D Monocytes % 9.4 Eosinophils % 0.2 D Basophils % 0.6 - Medications Given in the ED: ED Medications Discontinued Medications Generic Name Dose Route Start Last Admin Trade Name Freq PRN Reason Stop Dose Admin Sodium Chloride 1,000 mls @ 1,000 mls/hr 12/25/17 08:37 12/25/17 09:12 Normal Saline - IV 12/25/17 09:36 1,000 mls/hr ASDIR STA Administration Morphine Sulfate 2 mg 12/25/17 08:37 12/25/17 09:11 Morphine Injection - IVPUSH 12/25/17 08:38 2 mg ONCE ONE Administration Ondansetron HCl 4 mg 12/25/17 08:37 12/25/17 09:12 Zofran Injection IVPUSH 12/25/17 08:38 4 mg ONCE ONE Administration *DC/Admit/Observation/Transfer Diagnosis at time of Disposition: Abdominal pain, Dehydration - Discharge Dispostion Disposition: HOME Condition at time of disposition: Stable - Prescriptions - Referrals - Patient Instructions - Post Discharge Activity
--- NOTE | 2017-12-25 14:04 | EKG ---
Test Reason : Blood Pressure : / mmHG Vent. Rate : 109 BPM Atrial Rate : 109 BPM P-R Int : 134 ms QRS Dur : 082 ms QT Int : 306 ms P-R-T Axes : 055 015 065 degrees QTc Int : 412 ms POOR DATA QUALITY, INTERPRETATION MAY BE ADVERSELY AFFECTED SINUS TACHYCARDIA POSSIBLE LEFT ATRIAL ENLARGEMENT WHEN COMPARED WITH ECG OF 24-AUG-2017 08:14, NO SIGNIFICANT CHANGE WAS FOUND Confirmed by MERARI LITTLE MD ([id number]) on 12/25/2017 2:04:12 PM Referred By: Confirmed By:MERARI LITTLE MD
[2017-12-25] MEDS ORDERED: SODIUM CHLORIDE 1,000 ML IV SCH ×2 (17:30→18:45)
--- NOTE | 2017-12-25 18:31 | HP ---
CHIEF COMPLAINT: abdominal pain and bloating PCP: HISTORY OF PRESENT ILLNESS: Patient is a 52 year old female with a significant past medical history of diabetes, asthma, anemia, diverticulitis, HTN, HLD and HIV+, who presents to the emergency department today complaining of nausea, vomiting, diffuse abdominal pain, and diarrhea for 3 days. Patient reports that she had 10 loose watery stools at home last night which prompted an ER visit. She states she noticed that her abdomen becomes bloated and remains distended after eating. She has a history of diverticulitis but states she has not followed a certain diet. She reports eating a peanut mix yesterday and began to have worse epigastric pain that did not radiate to her back. Patient is followed at the [facility] and takes HIV medications regularly. Her last CD4 count was 656 on 11/2017. She states that she has been on Macrodantin for UTI prevention for a few months. She Denies fevers, chills, sore throat, cough, chest pain, shortness of breath, hematemesis, hematochezia, or urinary symptoms. ER course was notable for: (1) wbc 15.7 (2) creat 1.2, NA 134 (3) lipase 107 (4) Abd Ct: marked diffuse fatty infiltration of the liver , no evidence of SBO , diverticulitis (5) US RUQ pending Recent Travel: PAST MEDICAL HISTORY: PAST SURGICAL HISTORY: Social History: Smoking: Alcohol: Drugs: Family History: Allergies No Known Allergies Allergy (Verified 12/25/17 07:55) HOME MEDICATIONS: Home Medications Medication Instructions Recorded Abacavir Sulfate/Lamivudine 1 tab PO DAILY 12/25/17 [Epzicom -] Amitriptyline HCl [Elavil -] 25 mg PO HS 12/25/17 Amlodipine Besylate [Norvasc -] 5 mg PO DAILY 12/25/17 Aspirin [ASA -] 81 mg PO DAILY 12/25/17 Atorvastatin Calcium [Lipitor] 10 mg PO HS 12/25/17 Dolutegravir Sodium [Tivicay] 50 mg PO DAILY 12/25/17 Gabapentin 300 mg PO BID 12/25/17 Glipizide 5 mg PO DAILY 12/25/17 Metformin HCl 500 mg PO HS 12/25/17 Nitrofurantoin Monohyd/M-Cryst 100 mg PO DAILY 12/25/17 [Macrobid -] Omeprazole Magnesium [Prilosec Otc] 20 mg PO DAILY 12/25/17 Ropinirole HCl [Requip] 0.25 mg PO HS 12/25/17 Ropinirole HCl [Requip] 0.5 mg PO HS 12/25/17 Sitagliptin Phos/Metformin HCl 1 each PO DAILY 12/25/17 [Janumet Xr 50-1,000 mg Tablet] REVIEW OF SYSTEMS CONSTITUTIONAL: Absent: fever, chills, diaphoresis, generalized weakness, malaise, loss of appetite, weight change HEENT: Absent: rhinorrhea, nasal congestion, throat pain, throat swelling, difficulty swallowing, mouth swelling, ear pain, eye pain, visual changes CARDIOVASCULAR: Absent: chest pain, syncope, palpitations, irregular heart rate, lightheadedness , peripheral edema RESPIRATORY: Absent: cough, shortness of breath, dyspnea with exertion, orthopnea, wheezing, stridor, hemoptysis GASTROINTESTINAL: Absent: abdominal pain, abdominal distension, nausea, vomiting, diarrhea, constipation, melena, hematochezia GENITOURINARY: Absent: dysuria, frequency, urgency, hesitancy, hematuria, flank pain, genital pain MUSCULOSKELETAL: Absent: myalgia, arthralgia, joint swelling, back pain, neck pain SKIN: Absent: rash, itching, pallor HEMATOLOGIC/IMMUNOLOGIC: Absent: easy bleeding, easy bruising, lymphadenopathy, frequent infections ENDOCRINE: Absent: unexplained weight gain, unexplained weight loss, heat intolerance, cold intolerance NEUROLOGIC: Absent: headache, focal weakness or paresthesias, dizziness, unsteady gait, seizure, mental status changes, bladder or bowel incontinence PSYCHIATRIC: Absent: anxiety, depression, suicidal or homicidal ideation, hallucinations. PHYSICAL EXAMINATION Vital Signs - 24 hr 12/25/17 12/25/17 07:56 14:38 Temperature 97.9 F 98.3 F Pulse Rate 133 H Pulse Rate [ 98 H Apical] Respiratory 18 16 Rate Blood Pressure 133/88 Blood Pressure 137/83 [Right Arm] O2 Sat by Pulse 100 97 Oximetry (%) GENERAL: Awake, alert, and fully oriented, in no acute distress. HEAD: Normal with no signs of trauma. EYES: Pupils equal, round and reactive to light, extraocular movements intact, sclera anicteric, conjunctiva clear. No lid lag. EARS, NOSE, THROAT: Ears normal, nares patent, oropharynx clear without exudates. Moist mucous membranes. NECK: Normal range of motion, supple without lymphadenopathy, JVD, or masses. LUNGS: Breath sounds equal, clear to auscultation bilaterally. No wheezes, and no crackles. No accessory muscle use. HEART: Regular rate and rhythm, normal S1 and S2 without murmur, rub or gallop. ABDOMEN: soft, distended bloated abdomen, + hyperactive bowel sounds MUSCULOSKELETAL: Normal range of motion at all joints. No bony deformities or tenderness. No CVA tenderness. UPPER EXTREMITIES: 2+ pulses, warm, well-perfused. No cyanosis. No clubbing. No peripheral edema. LOWER EXTREMITIES: 2+ pulses, warm, well-perfused. No calf tenderness. No peripheral edema. NEUROLOGICAL: Cranial nerves II-XII intact. Normal speech. Normal gait. PSYCHIATRIC: Cooperative. Good eye contact. Appropriate mood and affect. SKIN: Warm, dry, normal turgor, no rashes or lesions noted, normal capillary refill. Laboratory Results - last 24 hr 12/25/17 12/25/17 12/25/17 08:48 08:48 08:48 WBC 15.7 H D RBC 5.37 H Hgb 15.4 H D Hct 47.8 H D MCV 89.1 MCH 28.6 MCHC 32.1 RDW 13.8 Plt Count 356 D MPV 8.6 Neutrophils % 67.5 Lymphocytes % 22.3 D Monocytes % 9.4 Eosinophils % 0.2 D Basophils % 0.6 PT with INR INR Sodium 134 L Potassium 4.8 Chloride 103 Carbon Dioxide 19 L Anion Gap 12 BUN 32 H Creatinine 1.2 H Creat Clearance w eGFR 47.18 Random Glucose 269 H Calcium 9.6 Total Bilirubin 0.8 D AST 22 ALT 56 Alkaline Phosphatase 162 H Creatine Kinase 57 Troponin I < 0.02 Total Protein 8.7 H Albumin 4.6 Lipase 107 Urine Color Urine Appearance Urine pH Ur Specific [place] Urine Protein Urine Glucose (UA) Urine Ketones Urine Blood Urine Nitrite Urine Bilirubin Urine Urobilinogen Ur Leukocyte Esterase Urine WBC (Auto) Urine RBC (Auto) Ur Epithelial Cells Hyaline Casts Urine Mucus Urine HCG, Qual 12/25/17 12/25/17 12/25/17 08:48 08:48 08:48 WBC RBC Hgb Hct MCV MCH MCHC RDW Plt Count MPV Neutrophils % Lymphocytes % Monocytes % Eosinophils % Basophils % PT with INR 11.70 INR 1.04 Sodium Potassium Chloride Carbon Dioxide Anion Gap BUN Creatinine Creat Clearance w eGFR Random Glucose Calcium Total Bilirubin AST ALT Alkaline Phosphatase Creatine Kinase Troponin I Total Protein Albumin Lipase Urine Color [place] Urine Appearance Slcloudy Urine pH 5.0 Ur Specific [place] 1.029 Urine Protein 2+ H Urine Glucose (UA) 1+ H Urine Ketones Trace H Urine Blood Negative Urine Nitrite Negative Urine Bilirubin Negative Urine Urobilinogen Negative Ur Leukocyte Esterase Trace Urine WBC (Auto) 5 Urine RBC (Auto) 2 Ur Epithelial Cells Moderate Hyaline Casts 52 Urine Mucus Few Urine HCG, Qual Negative ASSESSMENT/PLAN: Patient is a 52 year old female with a significant past medical history of diabetes, asthma, anemia, diverticulitis, HTN, HLD and HIV+, who presents to the emergency department today complaining of nausea, vomiting, diffuse abdominal pain, and diarrhea for 3 days. Patient reports that she had 10 loose watery stools at home last night which prompted an ER visit. She states she noticed that her abdomen becomes bloated and remains distended after eating. She has a history of diverticulitis but states she has not followed a certain diet. She reports eating a peanut mix yesterday and began to have worse epigastric pain that did not radiate to her back. Patient is followed at the [facility] and takes HIV medications regularly. Her last CD4 count was 656 on 11/2017. She states that she has been on Macrodantin for UTI prevention for a few months. She Denies fevers, chills, sore throat, cough, chest pain, shortness of breath, hematemesis, hematochezia, or urinary symptoms. GI: Abdominal pain, nausea/vomiting Abd Ct: marked diffuse fatty infiltration of the liver , no evidence of SBO, diverticulitis NPO Hydrate with IVF with sips of water with meds Protonix IV Monitor abd pain RUQ u/s ordered Zofran scheduled Rule out for cdiff Monitor for improvement GI consult if no improvement with above MARGE in the setting of n/v/d Hydrate, repeat labs in a.m HIV Continue HIV meds CD4 count 656 on 11/2017 Leukocytosis, likey due to dehydration ID consult if unable to tolerate antiviral meds Hypertension Continue home meds Monitor BP Trend troponins
[2017-12-25 18:36] LABS: BASO % 0.4 % (0-2.0); EOS % 2.1 % (0-4.5); HEMATOCRIT 39.6 % (32.4-45.2); HEMOGLOBIN 12.9 GM/dL (10.7-15.3); LYMPH % 34.5 % (8-40); MCHC 32.6 g/dl (32.0-36.0); MEAN PLT VOLUME 8.3 fl (7.5-11.1); PLATELET COUNT 239 K/MM3 (134-434); RBC 4.45 M/mm3 (3.60-5.2); RDW 13.9 % (11.6-15.6); WHITE BLOOD COUNT 9.7 K/mm3 (4.0-10.0)
[2017-12-25] MEDS ORDERED: MORPHINE SULFATE 10 MG/1 ML *VIAL IVPUSH PRN (18:54)
[2017-12-25] MEDS: ONDANSETRON 4 MG/2 ML VIAL IVPUSH SCH (20:44)
[2017-12-25] MEDS: DEXTROSE 5%-NORMAL SALINE 1,000 ML IV SCH (20:44)
[2017-12-25] MEDS: PANTOPRAZOLE SODIUM 40 MG VIAL IVPUSH SCH (20:45)
[2017-12-25] MEDS ORDERED: PT OWN MED DRAWER 7, Y5N ONE (22:05)
[2017-12-25] MEDS: INSULIN SLIDING SCALE (NOVOLOG) 1 VIAL SQ SCH (22:38)
[2017-12-25] MEDS: ATORVASTATIN CA 10 MG TABLET (FP) PO SCH (22:38)
[2017-12-25] MEDS: GABAPENTIN 300 MG CAPSULE (FP) PO SCH (22:38)
[2017-12-25] MEDS: AMITRIPTYLINE HCL 25 MG TABLET (FP) PO SCH (22:38)
[2017-12-25] MEDS: rOPINIRole HCL 0.25 MG TABLET PO SCH (22:39)
[2017-12-26] MEDS: ONDANSETRON 4 MG/2 ML VIAL IVPUSH SCH ×4 (02:48→22:45)
[2017-12-26] MEDS: INSULIN SLIDING SCALE (NOVOLOG) 1 VIAL SQ SCH ×4 (06:41→22:45)
[2017-12-26 07:27] LABS: HEMATOCRIT 37.8 % (32.4-45.2); HEMOGLOBIN 12.2 GM/dL (10.7-15.3); MCH 28.7 pg (25.7-33.7); MCHC 32.2 g/dl (32.0-36.0); MEAN CELL VOLUME 89.1 fl (80-96); MEAN PLT VOLUME 8.1 fl (7.5-11.1); PLATELET COUNT 225 K/MM3 (134-434); RBC 4.24 M/mm3 (3.60-5.2); RDW 13.9 % (11.6-15.6); WHITE BLOOD COUNT 9.8 K/mm3 (4.0-10.0)
[2017-12-26 08:04] VITALS: BMI 31.9
[2017-12-26 08:21] LABS: ALBUMIN 3.4 g/dl (3.4-5.0); ANION GAP 8 (8-16); BLOOD UREA NITROGEN 18 mg/dL (7-18); CALCIUM 7.8 mg/dL (8.5-10.1); CHLORIDE 109 mmol/L (98-107); CO2 21 mmol/L (21-32); GLUCOSE,RANDOM 250 mg/dL (74-106); MAGNESIUM 1.4 mg/dL (1.8-2.4); POTASSIUM 3.9 mmol/L (3.5-5.1); SODIUM 138 mmol/L (136-145)
[2017-12-26 08:24] LABS: ALK PHOS 122 U/L (45-117); BILIRUBIN,TOTAL 0.9 mg/dL (0.2-1.0); CREATININE 0.8 mg/dL (0.55-1.02); SGOT/AST 16 U/L (15-37); SGPT/ALT 42 U/L (12-78); TOT PROT 6.3 g/dl (6.4-8.2)
[2017-12-26] MEDS ORDERED: PT OWN MED DRAWER 7, Y5N ONE (09:05)
[2017-12-26] MEDS ORDERED: MAGNESIUM 2GM/50ML STERILE WATER IVPB IVPB ONE (09:08)
[2017-12-26] MEDS: GABAPENTIN 300 MG CAPSULE (FP) PO SCH ×2 (09:17→22:45)
[2017-12-26] MEDS: ASPIRIN 81 MG CHEWABLE TABLETS PO SCH (09:17)
[2017-12-26] MEDS: amLODIPine BESYLATE 5 MG TABLET (FP) PO SCH (09:17)
[2017-12-26] MEDS: PANTOPRAZOLE SODIUM 40 MG VIAL IVPUSH SCH (09:17)
[2017-12-26] MEDS ORDERED: PATIENT'S OWN MEDICATION (NON-FORMULARY) (Abacavir Sulfate/Lamivudine [Epzicom -] 1 TAB) PO SCH (10:00)
--- NOTE | 2017-12-26 10:52 | CON.ID ---
Consult Consult Specialty:: infectious disease Referred by:: hospitalist Reason for Consultation:: diarrhea - History of Present Illness Chief Complaint: diarrhea History of Present Illness: 52 year old female with stable HIV , developed 2 episodes of vomiting and then diarrhea- yellow with abdominal cramps since Thursday no blood in stools no fever or chills complains stomach is rumbling and she is burping hungry! 3 episodes diarrhea this am takes macrobid daily had an episode of colitis in April-ct scan with extensive colitis, treated with levaquin/flagyl last travel was [place] for the month of October pet cat of note daughter was sick for 3 days after a [employer] buffet last weekend - History Source History Provided By: Patient, Medical Record Limitations to Obtaining History: No Limitations - Past Medical History Cardio/Vascular: Yes: HTN, Hyperlipdemia Pulmonary: Yes: Asthma Gastrointestinal: Yes: GERD, Other (fatty liver) ...LMP: 12/26/17 Heme/Onc: Yes: Anemia Infectious Disease: Yes: HIV (cd4 656, viral load suppressed) Rheumatology: Yes: Fibromyalgia - Past Surgical History Past Surgical History: Yes: Additional Surgical History: lymph node biopsy - Alcohol/Substance Use Hx Alcohol Use: No - Smoking History Smoking history: Former smoker Have you smoked in the past 12 months: No Aproximately how many cigarettes per day: 40 If you are a former smoker, when did you quit?: 10 YEARS AGO - Social History Usual Living Arrangement: With Child ADL: Independent History of Recent Travel: Yes ([place]) Home Medications - Allergies Allergies/Adverse Reactions: Allergies Allergy/AdvReac Type Severity Reaction Status Date / Time No Known Allergies Allergy Verified 12/25/17 07:55 - Home Medications Home Medications: Ambulatory Orders Abacavir Sulfate/Lamivudine [Epzicom -] 300 mg PO DAILY 12/25/17 Amitriptyline HCl [Elavil -] 25 mg PO HS 12/25/17 Amlodipine Besylate [Norvasc -] 5 mg PO AM 12/25/17 Aspirin [ASA -] 81 mg PO AM 12/25/17 Atorvastatin Calcium [Lipitor] 10 mg PO HS 12/25/17 Dolutegravir Sodium [Tivicay] 50 mg PO AM 12/25/17 Gabapentin 300 mg PO BID 12/25/17 Glipizide 5 mg PO AM 12/25/17 Metformin HCl 500 mg PO HS 12/25/17 Nitrofurantoin Monohyd/M-Cryst [Macrobid -] 100 mg PO AM 12/25/17 Omeprazole Magnesium [Prilosec Otc] 20 mg PO HS 12/25/17 Ropinirole HCl [Requip] 0.25 mg PO HS 12/25/17 Ropinirole HCl [Requip] 0.5 mg PO HS 12/25/17 Sitagliptin Phos/Metformin HCl [Janumet Xr 50-1,000 mg Tablet] 1 each PO BID 08/03 Review of Systems - Review of Systems Constitutional: denies: Chills, Fever Eyes: reports: No Symptoms HENT: reports: No Symptoms Neck: reports: No Symptoms Cardiovascular: reports: No Symptoms. denies: Chest Pain Respiratory: reports: No Symptoms. denies: Cough Gastrointestinal: reports: Diarrhea, Other (cramps) Genitourinary: reports: No Symptoms Physical Exam Vital Signs: Vital Signs Temperature 97.8 F 12/26/17 10:33 Pulse Rate 101 H 12/26/17 10:33 Respiratory Rate 18 12/26/17 10:33 Blood Pressure 121/66 12/26/17 10:33 O2 Sat by Pulse Oximetry (%) 96 12/25/17 21:00 Constitutional: Yes: Well Nourished, No Distress Eyes: Yes: Conjunctiva Clear HENT: Yes: Atraumatic, Normocephalic Neck: Yes: Supple Cardiovascular: Yes: Regular Rate and Rhythm Respiratory: Yes: Regular, CTA Bilaterally Gastrointestinal: Yes: Soft, Hyperactive Bowel Sounds. No: Tenderness, Tenderness, Epigastrium, Tenderness, Rebound ...Rectal Exam: Yes: Deferred Renal/: No: CVA Tenderness - Left, CVA Tenderness - Right Extremities: Yes: WNL Edema: No Integumentary: No: Rash Psychiatric: Yes: Alert, Oriented Labs: CBC, BMP 12/26/17 06:00 12/26/17 06:00 stool and blood cultures are pending Imaging - Results Cat Scan: Report Reviewed Problem List - Problems (1) Gastroenteritis Code(s): K52.9 - NONINFECTIVE GASTROENTERITIS AND COLITIS, UNSPECIFIED (2) Dehydration Code(s): E86.0 - DEHYDRATION (3) HIV (human immunodeficiency virus infection) Code(s): Z21 - ASYMPTOMATIC HUMAN IMMUNODEFICIENCY VIRUS INFECTION STATUS Assessment/Plan ?viral, agree with stool studies and cdiff will add norovirus as her daughter was just sick with stomach bug as well continue IVF continue ART - she is no longer vomiting
[2017-12-26] MEDS: ABACAVIR SULFATE 300 MG TABLET PO SCH (11:10)
[2017-12-26] MEDS: DOLUTEGRAVIR SODIUM 50 MG TABLET PO SCH (11:10)
[2017-12-26] MEDS: lamiVUDine 150 MG TABLET PO SCH (11:11)
--- NOTE | 2017-12-26 12:38 | PN ---
Physical Exam: SUBJECTIVE: Patient seen and examined. She states she feels better, still having cramping OBJECTIVE: + c diff, started on Flagyl PO TID Vital Signs Period Temp Pulse Resp BP Sys/Harrison Pulse Ox Last 24 Hr 97.8 F-98.3 F 98-106 16-18 121-137/66-83 96-97 GENERAL: Awake, alert, and fully oriented, in no acute distress. HEAD: Normal with no signs of trauma. EYES: Pupils equal, round and reactive to light, extraocular movements intact, sclera anicteric, conjunctiva clear. No lid lag. EARS, NOSE, THROAT: Ears normal, nares patent, oropharynx clear without exudates. Moist mucous membranes. NECK: Normal range of motion, supple without lymphadenopathy, JVD, or masses. LUNGS: Breath sounds equal, clear to auscultation bilaterally. No wheezes, and no crackles. No accessory muscle use. HEART: Regular rate and rhythm, normal S1 and S2 without murmur, rub or gallop. ABDOMEN: soft, distended bloated abdomen, + hyperactive bowel sounds, intermittent pain MUSCULOSKELETAL: Normal range of motion at all joints. No bony deformities or tenderness. No CVA tenderness. UPPER EXTREMITIES: 2+ pulses, warm, well-perfused. No cyanosis. No clubbing. No peripheral edema. LOWER EXTREMITIES: 2+ pulses, warm, well-perfused. No calf tenderness. No peripheral edema. NEUROLOGICAL: Cranial nerves II-XII intact. Normal speech. Normal gait. PSYCHIATRIC: Cooperative. Good eye contact. Appropriate mood and affect. SKIN: Warm, dry, normal turgor, no rashes or lesions noted, normal capillary refill. Laboratory Results - last 24 hr 12/25/17 12/25/17 12/25/17 18:25 20:31 21:00 WBC 9.7 D RBC 4.45 Hgb 12.9 D Hct 39.6 D MCV 89.0 MCH 29.0 MCHC 32.6 RDW 13.9 Plt Count 239 D MPV 8.3 Neutrophils % 52.0 D Lymphocytes % 34.5 D Monocytes % 11.0 H Eosinophils % 2.1 D Basophils % 0.4 Sodium Potassium Chloride Carbon Dioxide Anion Gap BUN Creatinine Creat Clearance w eGFR POC Glucometer 193 Random Glucose Calcium Magnesium Total Bilirubin AST ALT Alkaline Phosphatase Troponin I < 0.02 Total Protein Albumin 12/26/17 12/26/17 12/26/17 06:00 06:00 06:39 WBC 9.8 RBC 4.24 Hgb 12.2 Hct 37.8 MCV 89.1 MCH 28.7 MCHC 32.2 RDW 13.9 Plt Count 225 MPV 8.1 Neutrophils % Lymphocytes % Monocytes % Eosinophils % Basophils % Sodium 138 Potassium 3.9 Chloride 109 H Carbon Dioxide 21 Anion Gap 8 BUN 18 Creatinine 0.8 Creat Clearance w eGFR > 60 POC Glucometer 262 Random Glucose 250 H Calcium 7.8 L Magnesium 1.4 L Total Bilirubin 0.9 AST 16 ALT 42 Alkaline Phosphatase 122 H Troponin I Total Protein 6.3 L Albumin 3.4 Active Medications Generic Name Dose Route Start Last Admin Trade Name Freq PRN Reason Stop Dose Admin Abacavir Sulfate 600 mg 12/26/17 10:00 12/26/17 11:10 Ziagen - PO 600 mg DAILY MALGORZATA Administration Amitriptyline HCl 25 mg 12/25/17 22:00 12/25/17 22:38 Elavil - PO 25 mg HS MALGORZATA Administration Amlodipine Besylate 5 mg 12/26/17 10:00 12/26/17 09:17 Norvasc - PO 5 mg DAILY MALGORZATA Administration Aspirin 81 mg 12/26/17 10:00 12/26/17 09:17 Asa - PO 81 mg DAILY MALGORZATA Administration Atorvastatin Calcium 10 mg 12/25/17 22:00 12/25/17 22:38 Lipitor - PO 10 mg HS MALGORZATA Administration Gabapentin 300 mg 12/25/17 22:00 12/26/17 09:17 Neurontin - PO 300 mg BID MALGORZATA Administration Dextrose/Sodium Chloride 1,000 mls @ 100 mls/hr 12/25/17 18:45 12/25/17 20:44 D5-Ns - IV 100 mls/hr ASDIR MALGORZATA Administration Insulin Aspart 1 vial 12/25/17 22:00 12/26/17 11:33 Novolog Vial Sliding Scale - SQ 4 unit ACHS MALGORZATA Administration Protocol Lamivudine 300 mg 12/26/17 10:00 12/26/17 11:11 Epivir - PO 300 mg DAILY MALGORZATA Administration Morphine Sulfate 2 mg 12/25/17 18:54 12/25/17 22:38 Morphine Injection - IVPUSH 2 mg Q4H PRN Administration PAIN LEVEL 7 - 10 Nystatin 500,000 units 12/26/17 18:00 Nystatin Oral Suspension - PO Q6HPO MALGORZATA Ondansetron HCl 4 mg 12/25/17 18:45 12/26/17 09:16 Zofran Injection IVPUSH Not Given Q6H-IV MALGORZATA Pantoprazole Sodium 40 mg 12/25/17 19:00 12/26/17 09:17 Protonix Iv IVPUSH 40 mg DAILY MALGORZATA Administration Ropinirole HCl 0.25 mg 12/25/17 22:00 12/25/17 22:39 Requip - PO 0.25 mg HS MALGORZATA Administration ASSESSMENT/PLAN: Patient is a 52 year old female with a significant past medical history of diabetes, asthma, anemia, diverticulitis, HTN, HLD and HIV+, who presents to the emergency department today complaining of nausea, vomiting, diffuse abdominal pain, and diarrhea for 3 days. Patient reports that she had 10 loose watery stools at home last night which prompted an ER visit. She states she noticed that her abdomen becomes bloated and remains distended after eating. She has a history of diverticulitis but states she has not followed a certain diet. She reports eating a peanut mix yesterday and began to have worse epigastric pain that did not radiate to her back. Patient is followed at the [facility] and takes HIV medications regularly. Her last CD4 count was 656 on 11/2017. She states that she has been on Macrodantin for UTI prevention for a few months. She Denies fevers, chills, sore throat, cough, chest pain, shortness of breath, hematemesis, hematochezia, or urinary symptoms. GI: Abdominal pain, nausea/vomiting Abd Ct: marked diffuse fatty infiltration of the liver , no evidence of SBO, diverticulitis Feeling slightly better today, start on clears and monitor + c diff antigen, started on Flagyl 500mg PO TID Hydrate with IVF Protonix IV Monitor abd pain RUQ u/s reviewed Zofran scheduled Monitor for improvement Norovirus ordered by ID GI consult if no improvement with above ID following Renal: MARGE in the setting of n/v/d, resolved Hydrate, repeat labs in a.m ID: HIV + Continue HIV meds CD4 count 656 on 11/2017 Leukocytosis, likey due to dehydration ID consulted and following Cardiology: Hypertension, chronic Continue home meds Monitor BP Trops negative F.E.N. Fluids: d5 ns @ 100cc/hr Electrolytes: Hypomagnesium repleted with Mag 2 gram run x 1 Nutrition: clears Disposition: full code. Visit type - Emergency Visit Emergency Visit: Yes ED Registration Date: 12/25/17 Care time: The patient presented to the Emergency Department on the above date and was hospitalized for further evaluation of their emergent condition. - New Patient This patient is new to me today: No - Critical Care Critical Care patient: No - Discharge Referral Referred to [facility] No
[2017-12-26] MEDS: metroNIDAZOLE 250 MG TABLET PO SCH ×2 (16:06→22:44)
[2017-12-26] MEDS: NYSTATIN 500,000 UNITS/5 ML SUSPENSION PO SCH (17:01)
[2017-12-26] MEDS ORDERED: INSULIN (NOVOLOG) ASPART 100 UNITS/ML 10ML VIAL ONE (21:31)
[2017-12-26] MEDS: AMITRIPTYLINE HCL 25 MG TABLET (FP) PO SCH (22:44)
[2017-12-26] MEDS: ATORVASTATIN CA 10 MG TABLET (FP) PO SCH (22:45)
[2017-12-26] MEDS: rOPINIRole HCL 0.25 MG TABLET PO SCH (22:46)
[2017-12-26] MEDS: DEXTROSE 5%-NORMAL SALINE 1,000 ML IV SCH (22:47)
[2017-12-27] MEDS: NYSTATIN 500,000 UNITS/5 ML SUSPENSION PO SCH ×5 (01:07→23:58)
[2017-12-27] MEDS: ONDANSETRON 4 MG/2 ML VIAL IVPUSH SCH ×4 (02:36→22:30)
[2017-12-27] MEDS: INSULIN SLIDING SCALE (NOVOLOG) 1 VIAL SQ SCH ×4 (06:27→22:34)
[2017-12-27] MEDS: metroNIDAZOLE 250 MG TABLET PO SCH ×3 (06:27→22:30)
[2017-12-27] MEDS ORDERED: INSULIN (NOVOLOG) ASPART 100 UNITS/ML 10ML VIAL ONE (06:36)
[2017-12-27 07:56] LABS: BASO % 0.5 % (0-2.0); EOS % 2.6 % (0-4.5); HEMATOCRIT 35.6 % (32.4-45.2); HEMOGLOBIN 11.8 GM/dL (10.7-15.3); MCHC 33.1 g/dl (32.0-36.0); MEAN CELL VOLUME 87.5 fl (80-96); MEAN PLT VOLUME 8.6 fl (7.5-11.1); NEUT % 51.9 % (42.8-82.8); PLATELET COUNT 211 K/MM3 (134-434); RBC 4.07 M/mm3 (3.60-5.2); RDW 13.8 % (11.6-15.6); WHITE BLOOD COUNT 6.6 K/mm3 (4.0-10.0)
[2017-12-27 08:09] LABS: CHLORIDE 109 mmol/L (98-107); POTASSIUM 3.7 mmol/L (3.5-5.1); SODIUM 143 mmol/L (136-145)
[2017-12-27 08:18] LABS: ALBUMIN 3.4 g/dl (3.4-5.0); ALK PHOS 127 U/L (45-117); ANION GAP 10 (8-16); BILIRUBIN,TOTAL 0.6 mg/dL (0.2-1.0); BLOOD UREA NITROGEN 6 mg/dL (7-18); CALCIUM 7.9 mg/dL (8.5-10.1); CO2 24 mmol/L (21-32); CREATININE 0.6 mg/dL (0.55-1.02); GLUCOSE,RANDOM 195 mg/dL (74-106); MAGNESIUM 1.8 mg/dL (1.8-2.4); SGOT/AST 20 U/L (15-37); SGPT/ALT 41 U/L (12-78); TOT PROT 6.1 g/dl (6.4-8.2)
[2017-12-27] MEDS ORDERED: ACETAMINOPHEN 325 MG TABLET (FP) PO ONE (09:16)
[2017-12-27] MEDS ORDERED: ACETAMINOPHEN 325 MG TABLET (FP) ONE (09:19)
[2017-12-27] MEDS ORDERED: PT OWN MED DRAWER 7, Y5N ONE ×2 (09:19→20:44)
[2017-12-27] MEDS: GABAPENTIN 300 MG CAPSULE (FP) PO SCH ×2 (09:24→22:31)
[2017-12-27] MEDS: ASPIRIN 81 MG CHEWABLE TABLETS PO SCH (09:24)
[2017-12-27] MEDS: amLODIPine BESYLATE 5 MG TABLET (FP) PO SCH (09:24)
[2017-12-27] MEDS: PANTOPRAZOLE SODIUM 40 MG VIAL IVPUSH SCH (09:25)
[2017-12-27] MEDS: DOLUTEGRAVIR SODIUM 50 MG TABLET PO SCH (09:26)
[2017-12-27] MEDS: ABACAVIR SULFATE 300 MG TABLET PO SCH (09:27)
[2017-12-27] MEDS: lamiVUDine 150 MG TABLET PO SCH (09:28)
--- NOTE | 2017-12-27 09:52 | PN ---
Progress Note (short form) - Note Progress Note: feels better less episodes of diarrhea one overnight, one this am started on po flagyl last night for positive c diff antigen in the setting of diarrhea Vital Signs Period Temp Pulse Resp BP Sys/Harrison Pulse Ox Last 24 Hr 97.6 F-98.8 F 90-107 18-20 115-155/66-94 95 cor-rrr lungs clear abd soft, +bs NT ext no edema CBC, BMP 12/27/17 06:00 12/27/17 06:00 Microbiology 12/25/17 21:55 Blood - Peripheral Venous Blood Culture - Preliminary NO GROWTH OBTAINED AFTER 24 HOURS, INCUBATION TO CONTINUE FOR 4 DAYS. 12/25/17 20:30 Blood - Peripheral Venous Blood Culture - Preliminary NO GROWTH OBTAINED AFTER 24 HOURS, INCUBATION TO CONTINUE FOR 4 DAYS. 12/26/17 13:40 Stool Gram Stain - Final 12/26/17 01:00 Stool Clostridium difficile Antigen (CRISPIN) - Final 12/26/17 01:00 Stool Clostridium difficile Toxin Assay - Final 12/25/17 08:48 Urine - Urine Clean Catch Urine Culture - Final Contaminated: Please Repeat a/p gastroenteritis ?cdiff started on po flagyl stools appear to be improving continue flagyl advance diet as tolerated maybe home tomorrow if improved? hiv- continue art Problem List - Problems (1) Gastroenteritis Code(s): K52.9 - NONINFECTIVE GASTROENTERITIS AND COLITIS, UNSPECIFIED (2) Dehydration Code(s): E86.0 - DEHYDRATION (3) HIV (human immunodeficiency virus infection) Code(s): Z21 - ASYMPTOMATIC HUMAN IMMUNODEFICIENCY VIRUS INFECTION STATUS
--- NOTE | 2017-12-27 14:45 | PN ---
Physical Exam: SUBJECTIVE: Patient seen and examined OBJECTIVE: Vital Signs Period Temp Pulse Resp BP Sys/Harrison Pulse Ox Last 24 Hr 97.6 F-98.8 F 90-107 18-20 136-155/80-94 95 GENERAL: Awake, alert, and fully oriented, in no acute distress. HEAD: Normal with no signs of trauma. EYES: Pupils equal, round and reactive to light, extraocular movements intact, sclera anicteric, conjunctiva clear. No lid lag. EARS, NOSE, THROAT: Ears normal, nares patent, oropharynx clear without exudates. Moist mucous membranes. NECK: Normal range of motion, supple without lymphadenopathy, JVD, or masses. LUNGS: Breath sounds equal, clear to auscultation bilaterally. No wheezes, and no crackles. No accessory muscle use. HEART: Regular rate and rhythm, normal S1 and S2 without murmur, rub or gallop. ABDOMEN: soft, distended bloated abdomen, + hyperactive bowel sounds, intermittent pain MUSCULOSKELETAL: Normal range of motion at all joints. No bony deformities or tenderness. No CVA tenderness. UPPER EXTREMITIES: 2+ pulses, warm, well-perfused. No cyanosis. No clubbing. No peripheral edema. LOWER EXTREMITIES: 2+ pulses, warm, well-perfused. No calf tenderness. No peripheral edema. NEUROLOGICAL: Cranial nerves II-XII intact. Normal speech. Normal gait. PSYCHIATRIC: Cooperative. Good eye contact. Appropriate mood and affect. SKIN: Warm, dry, normal turgor, no rashes or lesions noted, normal capillary refill. Laboratory Results - last 24 hr 12/26/17 12/26/17 12/26/17 11:24 17:05 22:43 WBC RBC Hgb Hct MCV MCH MCHC RDW Plt Count MPV Neutrophils % Lymphocytes % Monocytes % Eosinophils % Basophils % Sodium Potassium Chloride Carbon Dioxide Anion Gap BUN Creatinine Creat Clearance w eGFR POC Glucometer 218 197 137 Random Glucose Calcium Magnesium Total Bilirubin AST ALT Alkaline Phosphatase Total Protein Albumin 12/27/17 12/27/17 12/27/17 06:00 06:00 06:26 WBC 6.6 D RBC 4.07 Hgb 11.8 Hct 35.6 MCV 87.5 MCH 29.0 MCHC 33.1 RDW 13.8 Plt Count 211 MPV 8.6 Neutrophils % 51.9 Lymphocytes % 37.0 Monocytes % 8.0 Eosinophils % 2.6 Basophils % 0.5 Sodium 143 Potassium 3.7 Chloride 109 H Carbon Dioxide 24 Anion Gap 10 BUN 6 L Creatinine 0.6 Creat Clearance w eGFR > 60 POC Glucometer 219 Random Glucose 195 H Calcium 7.9 L Magnesium 1.8 Total Bilirubin 0.6 D AST 20 ALT 41 Alkaline Phosphatase 127 H Total Protein 6.1 L Albumin 3.4 Active Medications Generic Name Dose Route Start Last Admin Trade Name Freq PRN Reason Stop Dose Admin Abacavir Sulfate 600 mg 12/26/17 10:00 12/27/17 09:27 Ziagen - PO 600 mg DAILY MALGORZATA Administration Amitriptyline HCl 25 mg 12/25/17 22:00 12/26/17 22:44 Elavil - PO 25 mg HS MALGORZATA Administration Amlodipine Besylate 5 mg 12/26/17 10:00 12/27/17 09:24 Norvasc - PO 5 mg DAILY MALGORZATA Administration Aspirin 81 mg 12/26/17 10:00 12/27/17 09:24 Asa - PO 81 mg DAILY MALGORZATA Administration Atorvastatin Calcium 10 mg 12/25/17 22:00 12/26/17 22:45 Lipitor - PO 10 mg HS MALGORZATA Administration Gabapentin 300 mg 12/25/17 22:00 12/27/17 09:24 Neurontin - PO 300 mg BID MALGORZATA Administration Dextrose/Sodium Chloride 1,000 mls @ 100 mls/hr 12/25/17 18:45 12/26/17 22:47 D5-Ns - IV 100 mls/hr ASDIR MALGORZATA Administration Insulin Aspart 1 vial 12/25/17 22:00 12/27/17 12:43 Novolog Vial Sliding Scale - SQ 8 unit ACHS MALGORZATA Administration Protocol Lamivudine 300 mg 12/26/17 10:00 12/27/17 09:28 Epivir - PO 300 mg DAILY MALGORZATA Administration Metronidazole 500 mg 12/26/17 16:00 12/27/17 06:27 Flagyl - PO 500 mg TID MALGORZATA Administration Morphine Sulfate 2 mg 12/25/17 18:54 12/25/17 22:38 Morphine Injection - IVPUSH 2 mg Q4H PRN Administration PAIN LEVEL 7 - 10 Nystatin 500,000 units 12/26/17 18:00 12/27/17 06:27 Nystatin Oral Suspension - PO 500,000 units Q6HPO MALGORZATA Administration Ondansetron HCl 4 mg 12/25/17 18:45 12/27/17 09:24 Zofran Injection IVPUSH Not Given Q6H-IV MALGORZATA Pantoprazole Sodium 40 mg 12/25/17 19:00 12/27/17 09:25 Protonix Iv IVPUSH 40 mg DAILY MALGORZATA Administration Ropinirole HCl 0.25 mg 12/25/17 22:00 12/26/17 22:46 Requip - PO 0.25 mg HS MALGORZATA Administration ASSESSMENT/PLAN: Patient is a 52 year old female with a significant past medical history of diabetes, asthma, anemia, diverticulitis, HTN, HLD and HIV+, who presents to the emergency department today complaining of nausea, vomiting, diffuse abdominal pain, and diarrhea for 3 days. Patient reports that she had 10 loose watery stools at home last night which prompted an ER visit. She states she noticed that her abdomen becomes bloated and remains distended after eating. She has a history of diverticulitis but states she has not followed a certain diet. She reports eating a peanut mix yesterday and began to have worse epigastric pain that did not radiate to her back. Patient is followed at the [facility] and takes HIV medications regularly. Her last CD4 count was 656 on 11/2017. She states that she has been on Macrodantin for UTI prevention for a few months. She Denies fevers, chills, sore throat, cough, chest pain, shortness of breath, hematemesis, hematochezia, or urinary symptoms. GI: Abdominal pain, nausea/vomiting Abd Ct: marked diffuse fatty infiltration of the liver , no evidence of SBO, diverticulitis Feeling slightly better today, advance diet + c diff antigen, started on Flagyl 500mg PO TID Hydrate with IVF Protonix IV Monitor abd pain RUQ u/s reviewed Zofran scheduled Monitor for improvement Norovirus ordered by ID GI consult if no improvement with above ID following Renal: MARGE in the setting of n/v/d, resolved Hydrate, repeat labs in a.m ID: HIV + Continue HIV meds CD4 count 656 on 11/2017 Leukocytosis, likey due to dehydration ID consulted and following Cardiology: Hypertension, chronic Continue home meds Monitor BP Trops negative F.E.N. Fluids: d5 ns @ 100cc/hr Electrolytes: Hypomagnesium repleted Nutrition: clears Disposition: full code. Visit type - Emergency Visit Emergency Visit: Yes ED Registration Date: 12/25/17 Care time: The patient presented to the Emergency Department on the above date and was hospitalized for further evaluation of their emergent condition. - New Patient This patient is new to me today: Yes Date on this admission: 12/27/17 - Critical Care Critical Care patient: No - Discharge Referral Referred to [facility] Med P.C.: No
[2017-12-27] MEDS: DEXTROSE 5%-NORMAL SALINE 1,000 ML IV SCH (22:26)
[2017-12-27] MEDS: AMITRIPTYLINE HCL 25 MG TABLET (FP) PO SCH (22:30)
[2017-12-27] MEDS: ATORVASTATIN CA 10 MG TABLET (FP) PO SCH (22:31)
[2017-12-27] MEDS: rOPINIRole HCL 0.25 MG TABLET PO SCH (22:31)
[2017-12-28] MEDS: ONDANSETRON 4 MG/2 ML VIAL IVPUSH SCH ×5 (02:11→21:28)
[2017-12-28] MEDS: metroNIDAZOLE 250 MG TABLET PO SCH ×3 (06:35→21:27)
[2017-12-28] MEDS: NYSTATIN 500,000 UNITS/5 ML SUSPENSION PO SCH ×3 (06:35→17:51)
[2017-12-28] MEDS: INSULIN SLIDING SCALE (NOVOLOG) 1 VIAL SQ SCH ×4 (06:36→21:26)
[2017-12-28] MEDS ORDERED: INSULIN (NOVOLOG) ASPART 100 UNITS/ML 10ML VIAL ONE ×2 (06:43→20:07)
[2017-12-28 07:19] LABS: BASO % 0.5 % (0-2.0); EOS % 2.9 % (0-4.5); HEMATOCRIT 35.4 % (32.4-45.2); HEMOGLOBIN 11.8 GM/dL (10.7-15.3); MCH 29.6 pg (25.7-33.7); MCHC 33.5 g/dl (32.0-36.0); MEAN CELL VOLUME 88.3 fl (80-96); MEAN PLT VOLUME 8.6 fl (7.5-11.1); MONO % 9.3 % (3.8-10.2); NEUT % 56.3 % (42.8-82.8); PLATELET COUNT 217 K/MM3 (134-434); RDW 13.5 % (11.6-15.6); WHITE BLOOD COUNT 8.6 K/mm3 (4.0-10.0)
[2017-12-28 07:38] LABS: ALBUMIN 3.3 g/dl (3.4-5.0); ANION GAP 7 (8-16); CALCIUM 8.4 mg/dL (8.5-10.1); CHLORIDE 106 mmol/L (98-107); CO2 29 mmol/L (21-32); GLUCOSE,RANDOM 215 mg/dL (74-106); MAGNESIUM 1.7 mg/dL (1.8-2.4); POTASSIUM 3.2 mmol/L (3.5-5.1); SODIUM 142 mmol/L (136-145)
[2017-12-28 07:44] LABS: ALK PHOS 129 U/L (45-117); BILIRUBIN,TOTAL 0.7 mg/dL (0.2-1.0); CREATININE 0.7 mg/dL (0.55-1.02); SGOT/AST 29 U/L (15-37); SGPT/ALT 56 U/L (12-78); TOT PROT 6.1 g/dl (6.4-8.2)
[2017-12-28 07:58] LABS: BLOOD UREA NITROGEN 2 mg/dL (7-18)
[2017-12-28] MEDS ORDERED: POTASSIUM CHLORIDE TABS 20 MEQ TABLET.ER (FP) PO ONE ×2 (08:08→11:00)
[2017-12-28] MEDS ORDERED: PT OWN MED DRAWER 7, Y5N ONE (09:30)
[2017-12-28] MEDS: ABACAVIR SULFATE 300 MG TABLET PO SCH (09:32)
[2017-12-28] MEDS: amLODIPine BESYLATE 5 MG TABLET (FP) PO SCH (09:32)
[2017-12-28] MEDS: GABAPENTIN 300 MG CAPSULE (FP) PO SCH ×2 (09:32→21:27)
[2017-12-28] MEDS: PANTOPRAZOLE SODIUM 40 MG VIAL IVPUSH SCH (09:32)
[2017-12-28] MEDS: ASPIRIN 81 MG CHEWABLE TABLETS PO SCH (09:32)
[2017-12-28] MEDS: lamiVUDine 150 MG TABLET PO SCH (09:33)
[2017-12-28] MEDS: DOLUTEGRAVIR SODIUM 50 MG TABLET PO SCH (09:33)
[2017-12-28] MEDS ORDERED: ACETAMINOPHEN 325 MG TABLET (FP) PO PRN (10:09)
[2017-12-28] MEDS ORDERED: MAGNESIUM OXIDE 400 MG TABLET (FP) PO ONE (10:15)
--- NOTE | 2017-12-28 10:22 | PN ---
Progress Note (short form) - Note Progress Note: feels better reports 5 episodes of diarrhea yesterday still with cramps no fevers ate some breakfast- grits this am Vital Signs Period Temp Pulse Resp BP Sys/Harrison Pulse Ox Last 24 Hr 97.8 F-98.4 F 89-97 18-20 146-157/81-95 cor-rrr lungs clear abd soft,some discomfort to palpation no rebound or guarding ext no edema CBC, BMP 12/28/17 06:30 12/28/17 06:30 Microbiology 12/26/17 01:00 Stool Salmonella/Shigella Culture - Preliminary 12/26/17 01:00 Stool Yersinia Culture - Preliminary NO ENTERIC PATHOGENS, 24 HOURS, ON PRIMARY PLATES 12/26/17 01:00 Stool Escherichia coli 0157 Culture - Preliminary NO ENTERIC PATHOGENS, 24 HOURS, ON PRIMARY PLATES 12/25/17 21:55 Blood - Peripheral Venous Blood Culture - Preliminary NO GROWTH OBTAINED AFTER 48 HOURS, INCUBATION TO CONTINUE FOR 3 DAYS. 12/25/17 20:30 Blood - Peripheral Venous Blood Culture - Preliminary NO GROWTH OBTAINED AFTER 48 HOURS, INCUBATION TO CONTINUE FOR 3 DAYS. 12/26/17 13:40 Stool Norovirus GI - Preliminary 12/26/17 13:40 Stool Norovirus GII - Preliminary 12/26/17 13:40 Urine - Urine Clean Catch Urine Culture - Final 12/26/17 13:40 Stool Gram Stain - Final 12/26/17 01:00 Stool Clostridium difficile Antigen (CRISPIN) - Final 12/26/17 01:00 Stool Clostridium difficile Toxin Assay - Final 12/25/17 08:48 Urine - Urine Clean Catch Urine Culture - Final Contaminated: Please Repeat a/p gastroenteritis ?cdiff started on po flagyl stools appear to be improving continue flagyl advance diet as tolerated f/u stool culture hiv- continue art Problem List - Problems (1) Gastroenteritis Code(s): K52.9 - NONINFECTIVE GASTROENTERITIS AND COLITIS, UNSPECIFIED (2) Dehydration Code(s): E86.0 - DEHYDRATION (3) HIV (human immunodeficiency virus infection) Code(s): Z21 - ASYMPTOMATIC HUMAN IMMUNODEFICIENCY VIRUS INFECTION STATUS
--- NOTE | 2017-12-28 11:43 | PN ---
Physical Exam: SUBJECTIVE: Patient seen and examined. Pain improving, nausea subsided. Feels better. OBJECTIVE: Spoke to patient about discharge planning, and importance of continuation of PO Flagyl for 10 days Also stressed importance of strict hand washing and clorox use around her home to prevent contaminating others Explained to her that c diff bacteria are actually spores and the most effective way to treat this bacteria is handwashing as Purelle is not effective. Patient verbalized understanding Advance diet, monitor electrolytes Patient requesting a second opinion regarding her concern on transmitting c diff to others. She is concerned over transmitting this bacteria to her grandson who lives with her. Assured her that I will provide her with a second opinion as per request Vital Signs Period Temp Pulse Resp BP Sys/Harrison Pulse Ox Last 24 Hr 97.8 F-98.4 F 89-97 18-20 142-157/81-95 100 Laboratory Results - last 24 hr 12/27/17 12/27/17 12/28/17 12:36 22:33 06:30 WBC 8.6 D RBC 4.00 Hgb 11.8 Hct 35.4 MCV 88.3 MCH 29.6 MCHC 33.5 RDW 13.5 Plt Count 217 MPV 8.6 Neutrophils % 56.3 Lymphocytes % 31.0 Monocytes % 9.3 Eosinophils % 2.9 Basophils % 0.5 Sodium Potassium Chloride Carbon Dioxide Anion Gap BUN Creatinine Creat Clearance w eGFR POC Glucometer 301 157 Random Glucose Calcium Magnesium Total Bilirubin AST ALT Alkaline Phosphatase Total Protein Albumin 12/28/17 12/28/17 06:30 06:34 WBC RBC Hgb Hct MCV MCH MCHC RDW Plt Count MPV Neutrophils % Lymphocytes % Monocytes % Eosinophils % Basophils % Sodium 142 Potassium 3.2 L Chloride 106 Carbon Dioxide 29 Anion Gap 7 L BUN 2 L* Creatinine 0.7 Creat Clearance w eGFR > 60 POC Glucometer 222 Random Glucose 215 H Calcium 8.4 L Magnesium 1.7 L Total Bilirubin 0.7 AST 29 ALT 56 Alkaline Phosphatase 129 H Total Protein 6.1 L Albumin 3.3 L Active Medications Generic Name Dose Route Start Last Admin Trade Name Freq PRN Reason Stop Dose Admin Abacavir Sulfate 600 mg 12/26/17 10:00 12/28/17 09:32 Ziagen - PO 600 mg DAILY MALGORZATA Administration Acetaminophen 650 mg 12/28/17 10:09 Tylenol - PO Q6H PRN headache Amitriptyline HCl 25 mg 12/25/17 22:00 12/27/17 22:30 Elavil - PO 25 mg HS MALGORZATA Administration Amlodipine Besylate 5 mg 12/26/17 10:00 12/28/17 09:32 Norvasc - PO 5 mg DAILY MALGORZATA Administration Aspirin 81 mg 12/26/17 10:00 12/28/17 09:32 Asa - PO 81 mg DAILY MALGORZATA Administration Atorvastatin Calcium 10 mg 12/25/17 22:00 12/27/17 22:31 Lipitor - PO 10 mg HS MALGORZATA Administration Gabapentin 300 mg 12/25/17 22:00 12/28/17 09:32 Neurontin - PO 300 mg BID MALGORZATA Administration Insulin Aspart 1 vial 12/25/17 22:00 12/28/17 11:33 Novolog Vial Sliding Scale - SQ 4 unit ACHS MALGORZATA Administration Protocol Lamivudine 300 mg 12/26/17 10:00 12/28/17 09:33 Epivir - PO 300 mg DAILY MALGORZATA Administration Metronidazole 500 mg 12/26/17 16:00 12/28/17 06:35 Flagyl - PO 500 mg TID MALGORZATA Administration Morphine Sulfate 2 mg 12/25/17 18:54 12/25/17 22:38 Morphine Injection - IVPUSH 2 mg Q4H PRN Administration PAIN LEVEL 7 - 10 Nystatin 500,000 units 12/26/17 18:00 12/28/17 11:28 Nystatin Oral Suspension - PO 500,000 units Q6HPO MALGORZATA Administration Ondansetron HCl 4 mg 12/25/17 18:45 12/28/17 11:34 Zofran Injection IVPUSH Not Given Q6H-IV MALGORZATA Pantoprazole Sodium 40 mg 12/25/17 19:00 12/28/17 09:32 Protonix Iv IVPUSH 40 mg DAILY MALGORZATA Administration Ropinirole HCl 0.25 mg 12/25/17 22:00 12/27/17 22:31 Requip - PO 0.25 mg HS MALGORZATA Administration ASSESSMENT/PLAN: Patient is a 52 year old female with a significant past medical history of diabetes, asthma, anemia, diverticulitis, HTN, HLD and HIV+, who presents to the emergency department today complaining of nausea, vomiting, diffuse abdominal pain, and diarrhea for 3 days. Patient reports that she had 10 loose watery stools at home last night which prompted an ER visit. She states she noticed that her abdomen becomes bloated and remains distended after eating. She has a history of diverticulitis but states she has not followed a certain diet. She reports eating a peanut mix yesterday and began to have worse epigastric pain that did not radiate to her back. Patient is followed at the [facility] and takes HIV medications regularly. Her last CD4 count was 656 on 11/2017. She states that she has been on Macrodantin for UTI prevention for a few months. She Denies fevers, chills, sore throat, cough, chest pain, shortness of breath, hematemesis, hematochezia, or urinary symptoms. GI: Abdominal pain, nausea/vomiting - improving Abd Ct: marked diffuse fatty infiltration of the liver , no evidence of SBO, diverticulitis Feeling slightly better today, advance diet + c diff antigen, started on Flagyl 500mg PO TID Advance diet Protonix IV Monitor abd pain RUQ u/s reviewed Zofran scheduled Monitor for improvement Norovirus ordered by ID GI consult if no improvement with above ID following Renal: MARGE in the setting of n/v/d, resolved Hydrate, repeat labs in a.m ID: HIV + Continue HIV meds CD4 count 656 on 11/2017 ID consulted and following Cardiology: Hypertension, chronic Continue home meds Monitor BP Trops negative F.E.N. Fluids: tolerating PO Electrolytes: electrolytes repleted Nutrition: advanced to regular Disposition: full code.
[2017-12-28] MEDS: AMITRIPTYLINE HCL 25 MG TABLET (FP) PO SCH (21:27)
[2017-12-28] MEDS: ATORVASTATIN CA 10 MG TABLET (FP) PO SCH (21:28)
[2017-12-28] MEDS: rOPINIRole HCL 0.25 MG TABLET PO SCH (21:33)
[2017-12-29] MEDS: NYSTATIN 500,000 UNITS/5 ML SUSPENSION PO SCH ×3 (00:41→13:02)
[2017-12-29] MEDS: ONDANSETRON 4 MG/2 ML VIAL IVPUSH SCH ×3 (03:00→16:53)
[2017-12-29] MEDS: metroNIDAZOLE 250 MG TABLET PO SCH ×2 (06:18→15:25)
[2017-12-29] MEDS: INSULIN SLIDING SCALE (NOVOLOG) 1 VIAL SQ SCH ×3 (06:19→17:55)
[2017-12-29] MEDS ORDERED: INSULIN (NOVOLOG) ASPART 100 UNITS/ML 10ML VIAL ONE ×2 (06:29→12:37)
[2017-12-29 07:30] LABS: BASO % 0.5 % (0-2.0); EOS % 2.4 % (0-4.5); HEMATOCRIT 41.7 % (32.4-45.2); HEMOGLOBIN 13.7 GM/dL (10.7-15.3); LYMPH % 32.7 % (8-40); MCH 28.9 pg (25.7-33.7); MCHC 32.9 g/dl (32.0-36.0); MEAN CELL VOLUME 87.8 fl (80-96); MEAN PLT VOLUME 8.7 fl (7.5-11.1); MONO % 8.2 % (3.8-10.2); NEUT % 56.2 % (42.8-82.8); PLATELET COUNT 276 K/MM3 (134-434); RBC 4.76 M/mm3 (3.60-5.2); RDW 13.5 % (11.6-15.6); WHITE BLOOD COUNT 10.4 K/mm3 (4.0-10.0)
[2017-12-29 07:56] LABS: CHLORIDE 104 mmol/L (98-107); SODIUM 138 mmol/L (136-145)
[2017-12-29 08:05] LABS: ALBUMIN 3.9 g/dl (3.4-5.0); ALK PHOS 156 U/L (45-117); ANION GAP 5 (8-16); BILIRUBIN,TOTAL 0.9 mg/dL (0.2-1.0); BLOOD UREA NITROGEN 12 mg/dL (7-18); CO2 29 mmol/L (21-32); CREATININE 0.9 mg/dL (0.55-1.02); GLUCOSE,RANDOM 220 mg/dL (74-106); SGOT/AST 33 U/L (15-37); SGPT/ALT 71 U/L (12-78); TOT PROT 7.2 g/dl (6.4-8.2)
[2017-12-29] MEDS ORDERED: PT OWN MED DRAWER 7, Y5N ONE (10:38)
[2017-12-29] MEDS: amLODIPine BESYLATE 5 MG TABLET (FP) PO SCH (10:45)
[2017-12-29] MEDS: GABAPENTIN 300 MG CAPSULE (FP) PO SCH (10:45)
[2017-12-29] MEDS: ASPIRIN 81 MG CHEWABLE TABLETS PO SCH (10:45)
[2017-12-29] MEDS: DOLUTEGRAVIR SODIUM 50 MG TABLET PO SCH (10:48)
[2017-12-29] MEDS: PANTOPRAZOLE SODIUM 40 MG VIAL IVPUSH SCH (10:48)
[2017-12-29] MEDS: ABACAVIR SULFATE 300 MG TABLET PO SCH (10:49)
[2017-12-29] MEDS: lamiVUDine 150 MG TABLET PO SCH (10:50)
--- NOTE | 2017-12-29 13:22 | PN ---
Progress Note (short form) - Note Progress Note: feels better no diarrhea tolerating food Vital Signs Period Temp Pulse Resp BP Sys/Harrison Pulse Ox Last 24 Hr 98.1 F-98.8 F 86-101 18-20 119-153/71-95 cor-rrr lungs clear abd soft,nt ext no edema CBC, BMP 12/29/17 06:00 12/29/17 06:00 Microbiology 12/25/17 21:55 Blood - Peripheral Venous Blood Culture - Preliminary NO GROWTH OBTAINED AFTER 72 HOURS, INCUBATION TO CONTINUE FOR 2 DAYS. 12/25/17 20:30 Blood - Peripheral Venous Blood Culture - Preliminary NO GROWTH OBTAINED AFTER 72 HOURS, INCUBATION TO CONTINUE FOR 2 DAYS. 12/26/17 01:00 Stool Salmonella/Shigella Culture - Final 12/26/17 01:00 Stool Campylobacter Culture - Final NO GROWTH OF CAMPYLOBACTER SPECIES OBTAINED 12/26/17 01:00 Stool Yersinia Culture - Final NO GROWTH OF YERSINIA SPECIES OBTAINED 12/26/17 01:00 Stool Vibrio Culture - Final NO GROWTH OF VIBRIO SPECIES OBTAINED 12/26/17 01:00 Stool Escherichia coli 0157 Culture - Final NO GROWTH OF E COLI 0157 OBTAINED 12/26/17 13:40 Stool Norovirus GI - Preliminary 12/26/17 13:40 Stool Norovirus GII - Preliminary 12/26/17 13:40 Urine - Urine Clean Catch Urine Culture - Final 12/26/17 13:40 Stool Gram Stain - Final 12/26/17 01:00 Stool Clostridium difficile Antigen (CRISPIN) - Final 12/26/17 01:00 Stool Clostridium difficile Toxin Assay - Final 12/25/17 08:48 Urine - Urine Clean Catch Urine Culture - Final Contaminated: Please Repeat a/p gastroenteritis ?cdiff started on po flagyl stools appear to be improving continue flagyl for one more week at home tolerating diet stool cultures negative hiv- continue art f/u [facility] d/w hospitalist Problem List - Problems (1) Gastroenteritis Code(s): K52.9 - NONINFECTIVE GASTROENTERITIS AND COLITIS, UNSPECIFIED (2) Dehydration Code(s): E86.0 - DEHYDRATION (3) HIV (human immunodeficiency virus infection) Code(s): Z21 - ASYMPTOMATIC HUMAN IMMUNODEFICIENCY VIRUS INFECTION STATUS
[2017-12-29 14:40] VITALS: BP 155/82; PULSE 107; TEMP 98.3
--- NOTE | 2017-12-29 15:10 | DS ---
Physical Exam: SUBJECTIVE: Patient seen and examined at the bedside. Denies any pain, or discomfort. Denies abdominal pain, tolerating diet, no more diarrhea, denies nausea. OBJECTIVE: Vital Signs Period Temp Pulse Resp BP Sys/Harrison Pulse Ox Last 24 Hr 98.1 F-98.8 F 86-107 18-20 119-155/71-82 PHYSICAL EXAM GENERAL: The patient is awake, alert, and fully oriented, in no acute distress. HEAD: Normal with no signs of trauma. EYES: PERRL, extraocular movements intact, sclera anicteric, conjunctiva clear. ENT: Ears normal, nares patent, oropharynx clear without exudates, moist mucous membranes. NECK: Trachea midline, full range of motion, supple. LUNGS: Breath sounds equal, clear to auscultation bilaterally, no wheezes, no crackles, no accessory muscle use. HEART: Regular rate and rhythm, S1, S2 without murmur, rub or gallop. ABDOMEN: Soft, nontender, nondistended, normoactive bowel sounds, no guarding, no rebound, no hepatosplenomegaly, no masses. EXTREMITIES: 2+ pulses, warm, well-perfused, no edema. NEUROLOGICAL: Normal speech, gait not observed. PSYCH: Normal mood, normal affect. SKIN: Warm, dry, normal turgor, no rashes or lesions noted. LABS Laboratory Results - last 24 hr 12/28/17 12/28/17 12/29/17 16:23 21:24 06:00 WBC 10.4 H RBC 4.76 Hgb 13.7 D Hct 41.7 D MCV 87.8 MCH 28.9 MCHC 32.9 RDW 13.5 Plt Count 276 D MPV 8.7 Neutrophils % 56.2 Lymphocytes % 32.7 Monocytes % 8.2 Eosinophils % 2.4 Basophils % 0.5 Sodium Potassium Chloride Carbon Dioxide Anion Gap BUN Creatinine Creat Clearance w eGFR POC Glucometer 267 240 Random Glucose Calcium Magnesium Total Bilirubin AST ALT Alkaline Phosphatase Total Protein Albumin 12/29/17 12/29/17 12/29/17 06:00 06:18 11:11 WBC RBC Hgb Hct MCV MCH MCHC RDW Plt Count MPV Neutrophils % Lymphocytes % Monocytes % Eosinophils % Basophils % Sodium 138 Potassium 4.0 Chloride 104 Carbon Dioxide 29 Anion Gap 5 L BUN 12 Creatinine 0.9 Creat Clearance w eGFR > 60 POC Glucometer 211 361 Random Glucose 220 H Calcium 9.0 Magnesium 2.0 Total Bilirubin 0.9 D AST 33 ALT 71 Alkaline Phosphatase 156 H Total Protein 7.2 Albumin 3.9 HOSPITAL COURSE: Date of Admission:12/25/17 Date of Discharge: 12/29/17 ASSESSMENT/PLAN: Patient is a 52 year old female with a significant past medical history of diabetes, asthma, anemia, diverticulitis, HTN, HLD and HIV+, who presents to the emergency department today complaining of nausea, vomiting, diffuse abdominal pain, and diarrhea for 3 days. Patient reports that she had 10 loose watery stools at home last night which prompted an ER visit. She states she noticed that her abdomen becomes bloated and remains distended after eating. She has a history of diverticulitis but states she has not followed a certain diet. She reports eating a peanut mix yesterday and began to have worse epigastric pain that did not radiate to her back. Patient is followed at the [facility] and takes HIV medications regularly. Her last CD4 count was 656 on 11/2017. She states that she has been on Macrodantin for UTI prevention for a few months. She Denies fevers, chills, sore throat, cough, chest pain, shortness of breath, hematemesis, hematochezia, or urinary symptoms. GI: Abdominal pain, nausea/vomiting - resolved Abd Ct: marked diffuse fatty infiltration of the liver , no evidence of SBO, diverticulitis Feeling slightly better today, tolerated regular diet + c diff antigen, started on Flagyl 500mg PO TID to continue for 7 more days Tolerated advancement of diet Outpatient follow up Renal: MARGE in the setting of n/v/d, resolved ID: HIV + Continue HIV meds CD4 count 656 on 11/2017 [facility] outpatient Cardiology: Hypertension, chronic Spoke to patient about discharge planning, and importance of continuation of PO Flagyl for another 7 days. Also stressed importance of strict hand washing and clorox use around her home to prevent contaminating others Explained to her that c diff bacteria are actually spores and the most effective way to treat this bacteria is handwashing as Purelle is not effective. Patient verbalized understanding Patient for discharge today Minutes to complete discharge: 60 Discharge Summary Reason For Visit: ABDOMINAL PAIN; DEHYDRATION Current Active Problems Abdominal pain (Acute) Dehydration (Acute) Gastroenteritis (Acute) Condition: Stable - Instructions Diet, Activity, Other Instructions: Mrs Abraham: You were admitted to [facility] on 12/25/2017 with abdominal pain. During your visit, you were found to have C. Diff Infection (clostridium difficile). You are currently being treated with Flagyl 500mg. Please continue taking this medication for 7 more days. It has been called into your pharmacy. Please see your urologist within 1 week for follow up as we have stopped the Macrodantin. Please call me with any questions that you may have. As discussed, please continue to wash your hands thoroughly before and after coming in contact with others. Clorox wipes are recommenced for use around your home. Drink plenty of fluids, choose fluids containing water, salt and sugar such as diluted fruit juices and broths. Good nutrition is important, recommend that you eat 3 meals per day. If your stools are still watery, you can start a BRAT diet (Bananas, applesauce, rice and toast). New Medications: Flagyl 500mg three times per day for 7 more days Nystatin for your thrush Continue your ART medications. Thank you for allowing me to care for you. [facility] [phone] Referrals: Felipe Enciso MD [Primary Care Provider] - Disposition: HOME - Home Medications Comprehensive Discharge Medication List: Ambulatory Orders Abacavir Sulfate/Lamivudine [Epzicom -] 300 mg PO DAILY 12/25/17 Amitriptyline HCl [Elavil -] 25 mg PO HS 12/25/17 Amlodipine Besylate [Norvasc -] 5 mg PO AM 12/25/17 Aspirin [ASA -] 81 mg PO AM 12/25/17 Atorvastatin Calcium [Lipitor] 10 mg PO HS 12/25/17 Dolutegravir Sodium [Tivicay] 50 mg PO AM 12/25/17 Gabapentin 300 mg PO BID 12/25/17 Glipizide 5 mg PO AM 12/25/17 Metformin HCl 500 mg PO HS 12/25/17 Nitrofurantoin Monohyd/M-Cryst [Macrobid -] 100 mg PO AM 12/25/17 Omeprazole Magnesium [Prilosec Otc] 20 mg PO HS 12/25/17 Ropinirole HCl [Requip] 0.25 mg PO HS 12/25/17 Ropinirole HCl [Requip] 0.5 mg PO HS 12/25/17 Sitagliptin Phos/Metformin HCl [Janumet Xr 50-1,000 mg Tablet] 1 each PO BID 08/03 Nystatin Oral Suspension - [Nystatin Oral Susp 376537 Units/5 ML -] 500,000 units PO Q6HPO #1 bottle 12/29/17 metroNIDAZOLE [Flagyl -] 500 mg PO DAILY #21 tablet 12/29/17 This patient is new to me today: Yes Date on this admission: 12/29/17 Emergency Visit: Yes ED Registration Date: 12/25/17 Care time: The patient presented to the Emergency Department on the above date and was hospitalized for further evaluation of their emergent condition. Critical Care patient: No - Discharge Referral Referred to [facility] Med P.C.: No
== END 2017-12-29 18:21 | disposition home or self-care (01) ==
LOC: JER 07:54 → JERBED 17:30 → J7W 19:45
PROVIDERS: ADMIT Internal Medicine; ATTEND Nurse Practitioner Family
PROC: 3E033NZ Introduction of Analgesics, Hypnotics, Sedatives into Peripheral Vein, Percutaneous Approach (ICD-10-PCS; principal; 2017-12-25)
PROC: 3E033GC Introduction of Other Therapeutic Substance into Peripheral Vein, Percutaneous Approach (ICD-10-PCS; 2017-12-25)
PROC: 3E0337Z Introduction of Electrolytic and Water Balance Substance into Peripheral Vein, Percutaneous Approach (ICD-10-PCS; 2017-12-25)
DX: K52.9 Noninfective gastroenteritis and colitis, unspecified (principal); E86.0 Dehydration; A04.72 Enterocolitis due to Clostridium difficile, not specified as recurrent; R10.11 Right upper quadrant pain; Z21 Asymptomatic human immunodeficiency virus [HIV] infection status; I10 Essential (primary) hypertension; E78.5 Hyperlipidemia, unspecified; E11.9 Type 2 diabetes mellitus without complications; J45.909 Unspecified asthma, uncomplicated; D64.9 Anemia, unspecified; R00.0 Tachycardia, unspecified; K76.0 Fatty (change of) liver, not elsewhere classified; N17.9 Acute kidney failure, unspecified; D72.829 Elevated white blood cell count, unspecified; K21.9 Gastro-esophageal reflux disease without esophagitis; M79.7 Fibromyalgia; Z87.19 Personal history of other diseases of the digestive system; Z79.82 Long term (current) use of aspirin; Z79.84 Long term (current) use of oral hypoglycemic drugs; Z87.891 Personal history of nicotine dependence
CPT/HCPCS: 36415; 74176-TC; 76705-TC; 80053; 81003; 81015; 82550; 82962; 83690; 83735; 84484; 84703; 85025; 85027; 85610; 87040; 87045; 87046; 87086; 87186; 87205; 87324; 87449; 87798; 93005; 93010; 96361; 96374; 96375; 96376; 99284-25; G0378